=== PATIENT | male | born 1945 | race African-American/Black ===

== ENCOUNTER 2021-12-17 18:15 | Inpatient (IN) | payer OTHER ==
--- OUTSIDE RECORDS SUMMARY | 2021-12-17 18:21 | XMS REPORT | Continuity of Care Document ---
:1945 Author Organization [facility] Address [facility] Myles Dsouza [address] [place] [id number] Care Team Providers Name Role Phone Amanda ARELLANO Attending Clinician Unavailable RINA SALINAS Admitting Clinician Unavailable Problems This patient has no known problems. Allergies, Adverse Reactions, Alerts This patient has no known allergies or adverse reactions. Medications This patient has no known medications. Procedures This patient has no known procedures. Results Test Description Test Time Test Comments Results Result Comments Source CBC W/PLT COUNT & AUTO DIFFERENTIAL 2016-12-03 09:06:00 Test Item Value Reference Range Interpretation Comme nts WHITE BLOOD CELL COUNT (BEAKER) (test code = 775) 8.0 K/ L 4.0- 10.0 RED BLOOD CELL COUNT (BEAKER) (test code = 761) 4.60 M/ L 4.20-5 .80 HEMOGLOBIN (BEAKER) (test code = 410) 14.6 GM/DL 13.0-16.8 HEMATOCRIT (BEAKER) (test code = 411) 43.4 % 40.0-50.0 MEAN CORPUSCULAR VOLUME (BEAKER) (test code = 753) 94.4 fL 82. 0-98.0 MEAN CORPUSCULAR HEMOGLOBIN (BEAKER) (test code = 751) 31.8 pg 27.0-33.0 MEAN CORPUSCULAR HEMOGLOBIN CONC (BEAKER) (test code = 752) 33.7 GM/DL 32.0-36.0 RED CELL DISTRIBUTION WIDTH (BEAKER) (test code = 412) 14.3 % 10.3-14.2 H PLATELET COUNT (BEAKER) (test code = 756) 243 K/CU MM 150-430 MEAN PLATELET VOLUME (BEAKER) (test code = 754) 7.0 fL 6.5-10 .5 NUCLEATED RED BLOOD CELLS (BEAKER) (test code = 413) 0 /100 WBC 0 -0 NEUTROPHILS RELATIVE PERCENT (BEAKER) (test code = 429) 52 % LYMPHOCYTES RELATIVE PERCENT (BEAKER) (test code = 430) 33 % MONOCYTES RELATIVE PERCENT (BEAKER) (test code = 431) 10 % EOSINOPHILS RELATIVE PERCENT (BEAKER) (test code = 432) 4 % BASOPHILS RELATIVE PERCENT (BEAKER) (test code = 437) 1 % NEUTROPHILS ABSOLUTE COUNT (BEAKER) (test code = 670) 4.19 K/ L 1.80-8.00 LYMPHOCYTES ABSOLUTE COUNT (BEAKER) (test code = 414) 2.68 K/ L 1.48-4.50 MONOCYTES ABSOLUTE COUNT (BEAKER) (test code = 415) 0.78 K/ L 0. 00-1.30 EOSINOPHILS ABSOLUTE COUNT (BEAKER) (test code = 416) 0.31 K/ L 0.00-0.50 BASOPHILS ABSOLUTE COUNT (BEAKER) (test code = 417) 0.07 K/ L 0. 00-0.20 0.001.100.000.000.000.000.000.000.000.000.000.000.000.00BASIC METABOLIC PANEL 2016-12-03 06:24:00 Test Item Value Reference Range Interpretation Comments SODIUM (BEAKER) 138 meq/L 136-145 (test code = 381) POTASSIUM (BEAKER) 4.1 meq/L 3.5-5.1 (test code = 379) CHLORIDE (BEAKER) 109 meq/L 98-107 H (test code = 382) CO2 (BEAKER) (test 21 meq/L 22-29 L code = 355) BLOOD UREA NITROGEN 17 mg/dL 7-21 (BEAKER) (test code = 354) CREATININE (BEAKER) 1.25 mg/dL 0.57-1.25 (test code = 358) GLUCOSE RANDOM 77 mg/dL 70-105 (BEAKER) (test code = 652) CALCIUM (BEAKER) 8.6 mg/dL 8.4-10.2 (test code = 697) EGFR (BEAKER) (test 69 mL/min/1.73 ESTIMA HELENE GFR IS code = 1092) sq m NOT ACCURATE CREATININE CLEARANCE IN PREDICTING GLOMERULAR FILTRATION RATE . ESTIMATED GFR I S NOT APPLICABLE FOR DIALYSIS PATIEN TS. CBC W/PLT COUNT & AUTO [id number] 06:48:00 Test Item Value Reference Range Interpretation Comments WHITE BLOOD CELL COUNT (BEAKER) 10.0 K/ L 4.0-10.0 (test code = 775) RED BLOOD CELL COUNT (BEAKER) 4.93 M/ L 4.20-5.80 (test code = 761) HEMOGLOBIN (BEAKER) (test code = 15.5 GM/DL 13.0-16.8 410) HEMATOCRIT (BEAKER) (test code = 45.5 % 40.0-50.0 411) MEAN CORPUSCULAR VOLUME (BEAKER) 92.2 fL 82.0-98.0 (test code = 753) MEAN CORPUSCULAR HEMOGLOBIN 31.5 pg 27.0-33.0 (BEAKER) (test code = 751) MEAN CORPUSCULAR HEMOGLOBIN CONC 34.2 GM/DL 32.0-36.0 (BEAKER) (test code = 752) RED CELL DISTRIBUTION WIDTH 12.5 % 10.3-14.2 (BEAKER) (test code = 412) PLATELET COUNT (BEAKER) (test 239 K/CU MM 150-430 code = 756) MEAN PLATELET VOLUME (BEAKER) 7.2 fL 6.5-10.5 (test code = 754) NUCLEATED RED BLOOD CELLS 0 /100 WBC 0-0 (BEAKER) (test code = 413) NEUTROPHILS RELATIVE PERCENT 61 % (BEAKER) (test code = 429) LYMPHOCYTES RELATIVE PERCENT 25 % (BEAKER) (test code = 430) MONOCYTES RELATIVE PERCENT 10 % (BEAKER) (test code = 431) EOSINOPHILS RELATIVE PERCENT 3 % (BEAKER) (test code = 432) BASOPHILS RELATIVE PERCENT 1 % (BEAKER) (test code = 437) NEUTROPHILS ABSOLUTE COUNT 6.06 K/ L 1.80-8.00 (BEAKER) (test code = 670) LYMPHOCYTES ABSOLUTE COUNT 2.49 K/ L 1.48-4.50 (BEAKER) (test code = 414) MONOCYTES ABSOLUTE COUNT (BEAKER) 1.00 K/ L 0.00-1.30 (test code = 415) EOSINOPHILS ABSOLUTE COUNT 0.33 K/ L 0.00-0.50 (BEAKER) (test code = 416) BASOPHILS ABSOLUTE COUNT (BEAKER) 0.09 K/ L 0.00-0.20 (test code = 417) 0.00BASIC METABOLIC [id number] 06:15:00 Test Item Value Reference Range Interpretation Comments SODIUM (BEAKER) 140 meq/L 136-145 (test code = 381) POTASSIUM (BEAKER) 4.3 meq/L 3.5-5.1 (test code = 379) CHLORIDE (BEAKER) 109 meq/L 98-107 H (test code = 382) CO2 (BEAKER) (test 21 meq/L 22-29 L code = 355) BLOOD UREA NITROGEN 23 mg/dL 7-21 H (BEAKER) (test code = 354) CREATININE (BEAKER) 1.50 mg/dL 0.57-1.25 H (test code = 358) GLUCOSE RANDOM 94 mg/dL 70-105 (BEAKER) (test code = 652) CALCIUM (BEAKER) 9.0 mg/dL 8.4-10.2 (test code = 697) EGFR (BEAKER) (test 56 mL/min/1.73 ESTIMA HELENE GFR IS code = 1092) sq m NOT ACCURATE CREATININE CLEARANCE IN PREDICTING GLOMERULAR FILTRATION RATE . ESTIMATED GFR I S NOT APPLICABLE FOR DIALYSIS PATIEN TS. CBC W/PLT COUNT & AUTO [id number] 08:51:00 Test Item Value Reference Range Interpretation Comments WHITE BLOOD CELL COUNT (BEAKER) 9.5 K/ L 4.0-10.0 (test code = 775) RED BLOOD CELL COUNT (BEAKER) 4.90 M/ L 4.20-5.80 (test code = 761) HEMOGLOBIN (BEAKER) (test code = 16.4 GM/DL 13.0-16.8 410) HEMATOCRIT (BEAKER) (test code = 45.2 % 40.0-50.0 411) MEAN CORPUSCULAR VOLUME (BEAKER) 92.2 fL 82.0-98.0 (test code = 753) MEAN CORPUSCULAR HEMOGLOBIN 33.5 pg 27.0-33.0 H (BEAKER) (test code = 751) MEAN CORPUSCULAR HEMOGLOBIN CONC 36.4 GM/DL 32.0-36.0 H (BEAKER) (test code = 752) RED CELL DISTRIBUTION WIDTH 12.6 % 10.3-14.2 (BEAKER) (test code = 412) PLATELET COUNT (BEAKER) (test 216 K/CU MM 150-430 code = 756) MEAN PLATELET VOLUME (BEAKER) 7.1 fL 6.5-10.5 (test code = 754) NUCLEATED RED BLOOD CELLS 0 /100 WBC 0-0 (BEAKER) (test code = 413) NEUTROPHILS RELATIVE PERCENT 57 % (BEAKER) (test code = 429) LYMPHOCYTES RELATIVE PERCENT 28 % (BEAKER) (test code = 430) MONOCYTES RELATIVE PERCENT 11 % (BEAKER) (test code = 431) EOSINOPHILS RELATIVE PERCENT 3 % (BEAKER) (test code = 432) BASOPHILS RELATIVE PERCENT 1 % (BEAKER) (test code = 437) NEUTROPHILS ABSOLUTE COUNT 5.44 K/ L 1.80-8.00 (BEAKER) (test code = 670) LYMPHOCYTES ABSOLUTE COUNT 2.65 K/ L 1.48-4.50 (BEAKER) (test code = 414) MONOCYTES ABSOLUTE COUNT (BEAKER) 1.00 K/ L 0.00-1.30 (test code = 415) EOSINOPHILS ABSOLUTE COUNT 0.30 K/ L 0.00-0.50 (BEAKER) (test code = 416) BASOPHILS ABSOLUTE COUNT (BEAKER) 0.09 K/ L 0.00-0.20 (test code = 417) 0.00BASIC METABOLIC [id number] 06:46:00 Test Item Value Reference Range Interpretation Comments SODIUM (BEAKER) 138 meq/L 136-145 (test code = 381) POTASSIUM (BEAKER) 4.0 meq/L 3.5-5.1 (test code = 379) CHLORIDE (BEAKER) 106 meq/L 98-107 (test code = 382) CO2 (BEAKER) (test 22 meq/L 22-29 code = 355) BLOOD UREA NITROGEN 19 mg/dL 7-21 (BEAKER) (test code = 354) CREATININE (BEAKER) 1.47 mg/dL 0.57-1.25 H (test code = 358) GLUCOSE RANDOM 90 mg/dL 70-105 (BEAKER) (test code = 652) CALCIUM (BEAKER) 8.8 mg/dL 8.4-10.2 (test code = 697) EGFR (BEAKER) (test 57 mL/min/1.73 ESTIMA HELENE GFR IS code = 1092) sq m NOT ACCURATE CREATININE CLEARANCE IN PREDICTING GLOMERULAR FILTRATION RATE . ESTIMATED GFR I S NOT APPLICABLE FOR DIALYSIS PATIEN TS. CBC W/PLT COUNT & AUTO [id number] 12:42:00 Test Item Value Reference Range Interpretation Comments WHITE BLOOD CELL COUNT (BEAKER) 9.4 K/ L 4.0-10.0 (test code = 775) RED BLOOD CELL COUNT (BEAKER) 4.90 M/ L 4.20-5.80 (test code = 761) HEMOGLOBIN (BEAKER) (test code = 15.8 GM/DL 13.0-16.8 410) HEMATOCRIT (BEAKER) (test code = 45.3 % 40.0-50.0 411) MEAN CORPUSCULAR VOLUME (BEAKER) 92.4 fL 82.0-98.0 (test code = 753) MEAN CORPUSCULAR HEMOGLOBIN 32.3 pg 27.0-33.0 (BEAKER) (test code = 751) MEAN CORPUSCULAR HEMOGLOBIN CONC 34.9 GM/DL 32.0-36.0 (BEAKER) (test code = 752) RED CELL DISTRIBUTION WIDTH 12.7 % 10.3-14.2 (BEAKER) (test code = 412) PLATELET COUNT (BEAKER) (test 220 K/CU MM 150-430 code = 756) MEAN PLATELET VOLUME (BEAKER) 7.1 fL 6.5-10.5 (test code = 754) NUCLEATED RED BLOOD CELLS 2 /100 WBC 0-0 H (BEAKER) (test code = 413) NEUTROPHILS RELATIVE PERCENT 61 % (BEAKER) (test code = 429) LYMPHOCYTES RELATIVE PERCENT 27 % (BEAKER) (test code = 430) MONOCYTES RELATIVE PERCENT 9 % (BEAKER) (test code = 431) EOSINOPHILS RELATIVE PERCENT 2 % (BEAKER) (test code = 432) BASOPHILS RELATIVE PERCENT 1 % (BEAKER) (test code = 437) NEUTROPHILS ABSOLUTE COUNT 5.75 K/ L 1.80-8.00 (BEAKER) (test code = 670) LYMPHOCYTES ABSOLUTE COUNT 2.51 K/ L 1.48-4.50 (BEAKER) (test code = 414) MONOCYTES ABSOLUTE COUNT (BEAKER) 0.81 K/ L 0.00-1.30 (test code = 415) EOSINOPHILS ABSOLUTE COUNT 0.22 K/ L 0.00-0.50 (BEAKER) (test code = 416) BASOPHILS ABSOLUTE COUNT (BEAKER) 0.09 K/ L 0.00-0.20 (test code = 417) 0.00(MANUAL DIFFERENTIAL)[id number] 12:42:00 Test Item Value Reference Range Interpretation Comments TOTAL COUNTED (BEAKER) (test code = 1351) BASIC METABOLIC [id number] 05:31:00 Test Item Value Reference Range Interpretation Comments SODIUM (BEAKER) 138 meq/L 136-145 (test code = 381) POTASSIUM (BEAKER) 4.3 meq/L 3.5-5.1 (test code = 379) CHLORIDE (BEAKER) 108 meq/L 98-107 H (test code = 382) CO2 (BEAKER) (test 22 meq/L 22-29 code = 355) BLOOD UREA NITROGEN 15 mg/dL 7-21 (BEAKER) (test code = 354) CREATININE (BEAKER) 1.31 mg/dL 0.57-1.25 H (test code = 358) GLUCOSE RANDOM 85 mg/dL 70-105 (BEAKER) (test code = 652) CALCIUM (BEAKER) 9.0 mg/dL 8.4-10.2 (test code = 697) EGFR (BEAKER) (test 65 mL/min/1.73 ESTIMA HELENE GFR IS code = 1092) sq m NOT ACCURATE CREATININE CLEARANCE IN PREDICTING GLOMERULAR FILTRATION RATE . ESTIMATED GFR I S NOT APPLICABLE FOR DIALYSIS PATIEN TS. BASIC METABOLIC [id number] 04:28:00 Test Item Value Reference Range Interpretation Comments SODIUM (BEAKER) 137 meq/L 136-145 (test code = 381) POTASSIUM (BEAKER) 5.4 meq/L 3.5-5.1 H Specimen markedly (test code = 379) hemolyzed CHLORIDE (BEAKER) 109 meq/L 98-107 H (test code = 382) CO2 (BEAKER) (test 19 meq/L 22-29 L code = 355) BLOOD UREA NITROGEN 17 mg/dL 7-21 (BEAKER) (test code = 354) CREATININE (BEAKER) 1.33 mg/dL 0.57-1.25 H Specimen markedly (test code = 358) hemolyzed GLUCOSE RANDOM 88 mg/dL 70-105 (BEAKER) (test code = 652) CALCIUM (BEAKER) 8.8 mg/dL 8.4-10.2 (test code = 697) EGFR (BEAKER) (test 64 mL/min/1.73 ESTIMA HELENE GFR IS code = 1092) sq m NOT ACCURATE CREATININE CLEARANCE IN PREDICTING GLOMERULAR FILTRATION RATE . ESTIMATED GFR I S NOT APPLICABLE FOR DIALYSIS PATIEN TS. CBC W/PLT COUNT & AUTO [id number] 04:10:00 Test Item Value Reference Range Interpretation Comments WHITE BLOOD CELL COUNT (BEAKER) 10.4 K/ L 4.0-10.0 H (test code = 775) RED BLOOD CELL COUNT (BEAKER) 4.84 M/ L 4.20-5.80 (test code = 761) HEMOGLOBIN (BEAKER) (test code = 16.2 GM/DL 13.0-16.8 410) HEMATOCRIT (BEAKER) (test code = 44.7 % 40.0-50.0 411) MEAN CORPUSCULAR VOLUME (BEAKER) 92.5 fL 82.0-98.0 (test code = 753) MEAN CORPUSCULAR HEMOGLOBIN 33.5 pg 27.0-33.0 H (BEAKER) (test code = 751) MEAN CORPUSCULAR HEMOGLOBIN CONC 36.2 GM/DL 32.0-36.0 H (BEAKER) (test code = 752) RED CELL DISTRIBUTION WIDTH 12.8 % 10.3-14.2 (BEAKER) (test code = 412) PLATELET COUNT (BEAKER) (test 208 K/CU MM 150-430 code = 756) MEAN PLATELET VOLUME (BEAKER) 7.2 fL 6.5-10.5 (test code = 754) NUCLEATED RED BLOOD CELLS 0 /100 WBC 0-0 (BEAKER) (test code = 413) NEUTROPHILS RELATIVE PERCENT 64 % (BEAKER) (test code = 429) LYMPHOCYTES RELATIVE PERCENT 24 % (BEAKER) (test code = 430) MONOCYTES RELATIVE PERCENT 8 % (BEAKER) (test code = 431) EOSINOPHILS RELATIVE PERCENT 3 % (BEAKER) (test code = 432) BASOPHILS RELATIVE PERCENT 1 % (BEAKER) (test code = 437) NEUTROPHILS ABSOLUTE COUNT 6.70 K/ L 1.80-8.00 (BEAKER) (test code = 670) LYMPHOCYTES ABSOLUTE COUNT 2.52 K/ L 1.48-4.50 (BEAKER) (test code = 414) MONOCYTES ABSOLUTE COUNT (BEAKER) 0.87 K/ L 0.00-1.30 (test code = 415) EOSINOPHILS ABSOLUTE COUNT 0.27 K/ L 0.00-0.50 (BEAKER) (test code = 416) BASOPHILS ABSOLUTE COUNT (BEAKER) 0.07 K/ L 0.00-0.20 (test code = 417) 0.00BASIC METABOLIC [id number] 04:18:00 Test Item Value Reference Range Interpretation Comments SODIUM (BEAKER) 139 meq/L 136-145 (test code = 381) POTASSIUM (BEAKER) 3.4 meq/L 3.5-5.1 L (test code = 379) CHLORIDE (BEAKER) 112 meq/L 98-107 H (test code = 382) CO2 (BEAKER) (test 19 meq/L 22-29 L code = 355) BLOOD UREA NITROGEN 12 mg/dL 7-21 (BEAKER) (test code = 354) CREATININE (BEAKER) 0.99 mg/dL 0.57-1.25 (test code = 358) GLUCOSE RANDOM 79 mg/dL 70-105 (BEAKER) (test code = 652) CALCIUM (BEAKER) 7.6 mg/dL 8.4-10.2 L (test code = 697) EGFR (BEAKER) (test 90 mL/min/1.73 ESTIMA HELENE GFR IS code = 1092) sq m NOT ACCURATE CREATININE CLEARANCE IN PREDICTING GLOMERULAR FILTRATION RATE . ESTIMATED GFR I S NOT APPLICABLE FOR DIALYSIS PATIEN TS. CBC W/PLT COUNT & AUTO [id number] 04:08:00 Test Item Value Reference Range Interpretation Comments WHITE BLOOD CELL COUNT (BEAKER) 9.0 K/ L 4.0-10.0 (test code = 775) RED BLOOD CELL COUNT (BEAKER) 4.54 M/ L 4.20-5.80 (test code = 761) HEMOGLOBIN (BEAKER) (test code = 14.6 GM/DL 13.0-16.8 410) HEMATOCRIT (BEAKER) (test code = 42.1 % 40.0-50.0 411) MEAN CORPUSCULAR VOLUME (BEAKER) 92.7 fL 82.0-98.0 (test code = 753) MEAN CORPUSCULAR HEMOGLOBIN 32.1 pg 27.0-33.0 (BEAKER) (test code = 751) MEAN CORPUSCULAR HEMOGLOBIN CONC 34.7 GM/DL 32.0-36.0 (BEAKER) (test code = 752) RED CELL DISTRIBUTION WIDTH 14.3 % 10.3-14.2 H (BEAKER) (test code = 412) PLATELET COUNT (BEAKER) (test 213 K/CU MM 150-430 code = 756) MEAN PLATELET VOLUME (BEAKER) 7.0 fL 6.5-10.5 (test code = 754) NUCLEATED RED BLOOD CELLS 0 /100 WBC 0-0 (BEAKER) (test code = 413) NEUTROPHILS RELATIVE PERCENT 66 % (BEAKER) (test code = 429) LYMPHOCYTES RELATIVE PERCENT 21 % (BEAKER) (test code = 430) MONOCYTES RELATIVE PERCENT 10 % (BEAKER) (test code = 431) EOSINOPHILS RELATIVE PERCENT 3 % (BEAKER) (test code = 432) BASOPHILS RELATIVE PERCENT 1 % (BEAKER) (test code = 437) NEUTROPHILS ABSOLUTE COUNT 5.89 K/ L 1.80-8.00 (BEAKER) (test code = 670) LYMPHOCYTES ABSOLUTE COUNT 1.87 K/ L 1.48-4.50 (BEAKER) (test code = 414) MONOCYTES ABSOLUTE COUNT (BEAKER) 0.87 K/ L 0.00-1.30 (test code = 415) EOSINOPHILS ABSOLUTE COUNT 0.27 K/ L 0.00-0.50 (BEAKER) (test code = 416) BASOPHILS ABSOLUTE COUNT (BEAKER) 0.08 K/ L 0.00-0.20 (test code = 417) 0.00CBC W/PLT COUNT & AUTO [id number] 06:11:00 Test Item Value Reference Range Interpretation Comments WHITE BLOOD CELL COUNT (BEAKER) 11.3 K/ L 4.0-10.0 H (test code = 775) RED BLOOD CELL COUNT (BEAKER) 5.04 M/ L 4.20-5.80 (test code = 761) HEMOGLOBIN (BEAKER) (test code = 16.2 GM/DL 13.0-16.8 410) HEMATOCRIT (BEAKER) (test code = 46.7 % 40.0-50.0 411) MEAN CORPUSCULAR VOLUME (BEAKER) 92.7 fL 82.0-98.0 (test code = 753) MEAN CORPUSCULAR HEMOGLOBIN 32.2 pg 27.0-33.0 (BEAKER) (test code = 751) MEAN CORPUSCULAR HEMOGLOBIN CONC 34.8 GM/DL 32.0-36.0 (BEAKER) (test code = 752) RED CELL DISTRIBUTION WIDTH 12.9 % 10.3-14.2 (BEAKER) (test code = 412) PLATELET COUNT (BEAKER) (test 216 K/CU MM 150-430 code = 756) MEAN PLATELET VOLUME (BEAKER) 7.4 fL 6.5-10.5 (test code = 754) NUCLEATED RED BLOOD CELLS 0 /100 WBC 0-0 (BEAKER) (test code = 413) NEUTROPHILS RELATIVE PERCENT 63 % (BEAKER) (test code = 429) LYMPHOCYTES RELATIVE PERCENT 24 % (BEAKER) (test code = 430) MONOCYTES RELATIVE PERCENT 10 % (BEAKER) (test code = 431) EOSINOPHILS RELATIVE PERCENT 2 % (BEAKER) (test code = 432) BASOPHILS RELATIVE PERCENT 1 % (BEAKER) (test code = 437) NEUTROPHILS ABSOLUTE COUNT 7.09 K/ L 1.80-8.00 (BEAKER) (test code = 670) LYMPHOCYTES ABSOLUTE COUNT 2.69 K/ L 1.48-4.50 (BEAKER) (test code = 414) MONOCYTES ABSOLUTE COUNT (BEAKER) 1.14 K/ L 0.00-1.30 (test code = 415) EOSINOPHILS ABSOLUTE COUNT 0.24 K/ L 0.00-0.50 (BEAKER) (test code = 416) BASOPHILS ABSOLUTE COUNT (BEAKER) 0.10 K/ L 0.00-0.20 (test code = 417) 0.00[facility] MET[facility]OL[facility] [id number] 06:07:00 Test Item Value Reference Range Interpretation Comments SODIUM (BEAKER) 138 meq/L 136-145 (test code = 381) POTASSIUM (BEAKER) 4.6 meq/L 3.5-5.1 Specimen slightly (test code = 379) hemolyzed CHLORIDE (BEAKER) 108 meq/L 98-107 H (test code = 382) CO2 (BEAKER) (test 21 meq/L 22-29 L code = 355) BLOOD UREA NITROGEN 15 mg/dL 7-21 (BEAKER) (test code = 354) CREATININE (BEAKER) 1.14 mg/dL 0.57-1.25 Specimen slightly (test code = 358) hemolyzed GLUCOSE RANDOM 81 mg/dL 70-105 (BEAKER) (test code = 652) CALCIUM (BEAKER) 8.8 mg/dL 8.4-10.2 (test code = 697) EGFR (BEAKER) (test 77 mL/min/1.73 ESTIMA HELENE GFR IS code = 1092) sq m NOT ACCURATE CREATININE CLEARANCE IN PREDICTING GLOMERULAR FILTRATION RATE . ESTIMATED GFR I S NOT APPLICABLE FOR DIALYSIS PATIEN TS. [id number] 10:58:00 Test Item Value Reference Range Interpretation Comments RPR SCREEN (BEAKER) (test code = Nonreactive Nonreactive 420) HEMOGLOBIN [id number] 10:40:00 Test Item Value Reference Range Interpretation Comments HEMOGLOBIN A1C 5.4 % 4.3-6.1 POSSIBLE HEMO GLOBIN C (BEAKER) (test code = VARIAN T NOTED IN 368) HEMOGLOBIN A1C CHROMATOGRAPH. SUGGEST HEMOGLOBIN ELEC TROPHORESIS IF CLINICALLY I NDICATED. CBC W/PLT COUNT & AUTO [id number] 07:52:00 Test Item Value Reference Range Interpretation Comments WHITE BLOOD CELL COUNT (BEAKER) 10.8 K/ L 4.0-10.0 H (test code = 775) RED BLOOD CELL COUNT (BEAKER) 4.99 M/ L 4.20-5.80 (test code = 761) HEMOGLOBIN (BEAKER) (test code = 15.4 GM/DL 13.0-16.8 410) HEMATOCRIT (BEAKER) (test code = 46.5 % 40.0-50.0 411) MEAN CORPUSCULAR VOLUME (BEAKER) 93.1 fL 82.0-98.0 (test code = 753) MEAN CORPUSCULAR HEMOGLOBIN 30.8 pg 27.0-33.0 (BEAKER) (test code = 751) MEAN CORPUSCULAR HEMOGLOBIN CONC 33.1 GM/DL 32.0-36.0 (BEAKER) (test code = 752) RED CELL DISTRIBUTION WIDTH 14.5 % 10.3-14.2 H (BEAKER) (test code = 412) PLATELET COUNT (BEAKER) (test 248 K/CU MM 150-430 code = 756) MEAN PLATELET VOLUME (BEAKER) 7.2 fL 6.5-10.5 (test code = 754) NUCLEATED RED BLOOD CELLS 0 /100 WBC 0-0 (BEAKER) (test code = 413) NEUTROPHILS RELATIVE PERCENT 68 % (BEAKER) (test code = 429) LYMPHOCYTES RELATIVE PERCENT 22 % (BEAKER) (test code = 430) MONOCYTES RELATIVE PERCENT 9 % (BEAKER) (test code = 431) EOSINOPHILS RELATIVE PERCENT 1 % (BEAKER) (test code = 432) BASOPHILS RELATIVE PERCENT 0 % (BEAKER) (test code = 437) NEUTROPHILS ABSOLUTE COUNT 7.29 K/ L 1.80-8.00 (BEAKER) (test code = 670) LYMPHOCYTES ABSOLUTE COUNT 2.36 K/ L 1.48-4.50 (BEAKER) (test code = 414) MONOCYTES ABSOLUTE COUNT (BEAKER) 0.99 K/ L 0.00-1.30 (test code = 415) EOSINOPHILS ABSOLUTE COUNT 0.10 K/ L 0.00-0.50 (BEAKER) (test code = 416) BASOPHILS ABSOLUTE COUNT (BEAKER) 0.04 K/ L 0.00-0.20 (test code = 417) 0.00URINALYSIS W/ [id number] 07:26:00 Test Item Value Reference Range Interpretation Comments COLOR (BEAKER) (test code Light Yellow = 470) CLARITY (BEAKER) (test Clear code = 469) SPECIFIC GRAVITY UA 1.031 1.001-1.035 (BEAKER) (test code = 468) PH UA (BEAKER) (test code 7.0 5.0-8.0 = 467) PROTEIN UA (BEAKER) (test 10 mg/dL Negative A code = 464) GLUCOSE UA (BEAKER) (test Negative Negative code = 365) KETONES UA (BEAKER) (test Negative Negative code = 371) BILIRUBIN UA (BEAKER) Negative Negative (test code = 462) BLOOD UA (BEAKER) (test Negative Negative code = 461) NITRITE UA (BEAKER) (test Negative Negative code = 465) LEUKOCYTE ESTERASE UA Negative Negative (BEAKER) (test code = 466) UROBILINOGEN UA (BEAKER) 0.2 mg/dL 0.2-1.0 (test code = 463) RBC UA (BEAKER) (test code < /HPF = 519) WBC UA (BEAKER) (test code 1 /HPF = 520) SOURCE(BEAKER) (test code Urine, Clean Catch = 1789) TSH/FREE T4 IF [id number] 06:28:00 Test Item Value Reference Range Interpretation Comments THYROID STIMULATING HORMONE 0.92 uIU/mL 0.35-4.94 (BEAKER) (test code = 772) VITAMIN B12 AND [id number] 06:28:00 Test Item Value Reference Range Interpretation Comments VITAMIN B12 (BEAKER) (test code = 424 pg/mL 213-816 774) FOLATE (BEAKER) (test code = 362) 6.3 ng/mL >=7.0 L Effective 07/09/2014: Folate Reference Range ChangeNew: >=7.0 Previous: >=5.4BASIC METABOLIC [id number] 05:44:00 Test Item Value Reference Range Interpretation Comments SODIUM (BEAKER) 137 meq/L 136-145 (test code = 381) POTASSIUM (BEAKER) 4.2 meq/L 3.5-5.1 (test code = 379) CHLORIDE (BEAKER) 107 meq/L 98-107 (test code = 382) CO2 (BEAKER) (test 21 meq/L 22-29 L code = 355) BLOOD UREA NITROGEN 15 mg/dL 7-21 (BEAKER) (test code = 354) CREATININE (BEAKER) 1.11 mg/dL 0.57-1.25 (test code = 358) GLUCOSE RANDOM 94 mg/dL 70-105 (BEAKER) (test code = 652) CALCIUM (BEAKER) 8.9 mg/dL 8.4-10.2 (test code = 697) EGFR (BEAKER) (test mL/min/1.73 INSUFFIC IENT CLINICAL code = 1092) sq m DATA TO CALCULA TE ESTIMATED GFR. FastingLIPID [id number] 05:39:00 Test Item Value Reference Range Interpretation Comments TRIGLYCERIDES (BEAKER) (test code = 71 mg/dL 540) CHOLESTEROL (BEAKER) (test code = 207 mg/dL 631) HDL CHOLESTEROL (BEAKER) (test code 33 mg/dL = 976) LDL CHOLESTEROL CALCULATED (BEAKER) 160 mg/dL (test code = 633) Triglyceride Reference Range: Low Risk <150 Borderline 150-199 High Risk 200-499 Very High Risk >=500Cholesterol Reference Range: Low Risk <200 Borderline 200-239 High Risk >240HDL Cholesterol Reference Range: Low Risk >=60 High Risk <40LDL Cholesterol Reference Range: Optimal <100 Near Optimal 100-129 Borderline 130-159 High 160-189 Very High >=190 FastingTROPONIN [id number] 05:25:00 Test Item Value Reference Range Interpretation Comments TROPONIN I (BEAKER) (test code = 0.01 ng/mL 0.00-0.03 397) Effective 07/09/2014: Reference Range ChangeNew: 0.00-0.03 Previous 0.00- 0.15Troponin I (TnI) levels must be interpreted in the context of the presenting symptoms and the clinical findings. Elevated TnI levels indicate myocardial damage, but are not specific for ischemic heart disease. Elevated TnI levels are seen in patients with other cardiac conditions (including myocarditis and congestive heartfailure), and slight TnI elevations occur in patients with other conditions, including sepsis, renalfailure, acidosis, acute neurological disease, and persistent tachyarrhythmia.FastingCBC W/PLT COUNT & AUTO [id number] 04:49:00 Test Item Value Reference Range Interpretation Comments WHITE BLOOD CELL COUNT (BEAKER) 10.4 K/ L 4.0-10.0 H (test code = 775) RED BLOOD CELL COUNT (BEAKER) 4.94 M/ L 4.20-5.80 (test code = 761) HEMOGLOBIN (BEAKER) (test code = 16.2 GM/DL 13.0-16.8 410) HEMATOCRIT (BEAKER) (test code = 45.5 % 40.0-50.0 411) MEAN CORPUSCULAR VOLUME (BEAKER) 92.0 fL 82.0-98.0 (test code = 753) MEAN CORPUSCULAR HEMOGLOBIN 32.7 pg 27.0-33.0 (BEAKER) (test code = 751) MEAN CORPUSCULAR HEMOGLOBIN CONC 35.5 GM/DL 32.0-36.0 (BEAKER) (test code = 752) RED CELL DISTRIBUTION WIDTH 12.9 % 10.3-14.2 (BEAKER) (test code = 412) PLATELET COUNT (BEAKER) (test 214 K/CU MM 150-430 code = 756) MEAN PLATELET VOLUME (BEAKER) 6.6 fL 6.5-10.5 (test code = 754) NUCLEATED RED BLOOD CELLS 0 /100 WBC 0-0 (BEAKER) (test code = 413) NEUTROPHILS RELATIVE PERCENT 67 % (BEAKER) (test code = 429) LYMPHOCYTES RELATIVE PERCENT 23 % (BEAKER) (test code = 430) MONOCYTES RELATIVE PERCENT 9 % (BEAKER) (test code = 431) EOSINOPHILS RELATIVE PERCENT 1 % (BEAKER) (test code = 432) BASOPHILS RELATIVE PERCENT 0 % (BEAKER) (test code = 437) NEUTROPHILS ABSOLUTE COUNT 6.97 K/ L 1.80-8.00 (BEAKER) (test code = 670) LYMPHOCYTES ABSOLUTE COUNT 2.37 K/ L 1.48-4.50 (BEAKER) (test code = 414) MONOCYTES ABSOLUTE COUNT (BEAKER) 0.97 K/ L 0.00-1.30 (test code = 415) EOSINOPHILS ABSOLUTE COUNT 0.08 K/ L 0.00-0.50 (BEAKER) (test code = 416) BASOPHILS ABSOLUTE COUNT (BEAKER) 0.02 K/ L 0.00-0.20 (test code = 417) [id number] 00:59:00 Test Item Value Reference Range Interpretation Comments PHOSPHORUS (BEAKER) (test code = 3.1 mg/dL 2.3-4.7 604) [id number] 00:59:00 Test Item Value Reference Range Interpretation Comments MAGNESIUM (BEAKER) (test code = 2.0 mg/dL 1.6-2.6 627) CREATINE KINASE (CK), TOTAL AND [id number] 22:25:00 Test Item Value Reference Range Interpretation Comments CREATINE KINASE TOTAL (BEAKER) 186 U/L 29-200 (test code = 380) CREATINE KINASE-MB (BEAKER) (test 1.9 ng/mL 0.0-6.6 code = 750) CREATINE KINASE-MB INDEX (BEAKER) 1.0 % (test code = 395) Effective 07/09/2014: CK-MB Reference Range ChangeNew: 0.0-6.6 Previous: 0.0-4.9CK-MB Reference Range:<6.7 Normal6.7-10.0 Borderline>10.0 AbnormalTROPONIN [id number] 22:25:00 Test Item Value Reference Range Interpretation Comments TROPONIN I (BEAKER) (test code = 397) < ng/mL 0.00-0.03 Effective 07/09/2014: Reference Range ChangeNew: 0.00-0.03 Previous 0.00- 0.15Troponin I (TnI) levels must be interpreted in the context of the presenting symptoms and the clinical findings. Elevated TnI levels indicate myocardial damage, but are not specific for ischemic heart disease. Elevated TnI levels are seen in patients with other cardiac conditions (including myocarditis and congestive heartfailure), and slight TnI elevations occur in patients with other conditions, including sepsis, renalfailure, acidosis, acute neurological disease, and persistent tachyarrhythmia.B-TYPE NATRIURETIC FACTOR (BNP) 2016-11-25 22:20:00 Test Item Value Reference Range Interpretation Comments B-TYPE NATRIURETIC PEPTIDE (BEAKER) 16 pg/mL 0-100 (test code = 700) BASIC METABOLIC [id number] 22:19:00 Test Item Value Reference Range Interpretation Comments SODIUM (BEAKER) 139 meq/L 136-145 (test code = 381) POTASSIUM (BEAKER) 4.2 meq/L 3.5-5.1 (test code = 379) CHLORIDE (BEAKER) 105 meq/L 98-107 (test code = 382) CO2 (BEAKER) (test 23 meq/L 22-29 code = 355) BLOOD UREA NITROGEN 17 mg/dL 7-21 (BEAKER) (test code = 354) CREATININE (BEAKER) 1.40 mg/dL 0.57-1.25 H (test code = 358) GLUCOSE RANDOM 103 mg/dL 70-105 (BEAKER) (test code = 652) CALCIUM (BEAKER) 9.4 mg/dL 8.4-10.2 (test code = 697) EGFR (BEAKER) (test mL/min/1.73 INSUFFIC IENT CLINICAL code = 1092) sq m DATA TO CALCULA TE ESTIMATED GFR. POCT-GLUCOSE [id number] 22:17:00 Test Item Value Reference Range Interpretation Comments POC-GLUCOSE METER 103 mg/dL 70-110 TESTED AT [facility] [address] ([facility]) (test code = [place] 1538) [address] CBC W/PLT COUNT & AUTO [id number] 22:12:00 Test Item Value Reference Range Interpretation Comments WHITE BLOOD CELL COUNT (BEAKER) 13.9 K/ L 4.0-10.0 H (test code = 775) RED BLOOD CELL COUNT (BEAKER) 5.08 M/ L 4.20-5.80 (test code = 761) HEMOGLOBIN (BEAKER) (test code = 16.6 GM/DL 13.0-16.8 410) HEMATOCRIT (BEAKER) (test code = 46.9 % 40.0-50.0 411) MEAN CORPUSCULAR VOLUME (BEAKER) 92.4 fL 82.0-98.0 (test code = 753) MEAN CORPUSCULAR HEMOGLOBIN 32.6 pg 27.0-33.0 (BEAKER) (test code = 751) MEAN CORPUSCULAR HEMOGLOBIN CONC 35.3 GM/DL 32.0-36.0 (BEAKER) (test code = 752) RED CELL DISTRIBUTION WIDTH 12.9 % 10.3-14.2 (BEAKER) (test code = 412) PLATELET COUNT (BEAKER) (test 242 K/CU MM 150-430 code = 756) MEAN PLATELET VOLUME (BEAKER) 6.7 fL 6.5-10.5 (test code = 754) NUCLEATED RED BLOOD CELLS 0 /100 WBC 0-0 (BEAKER) (test code = 413) NEUTROPHILS RELATIVE PERCENT 82 % (BEAKER) (test code = 429) LYMPHOCYTES RELATIVE PERCENT 11 % (BEAKER) (test code = 430) MONOCYTES RELATIVE PERCENT 6 % (BEAKER) (test code = 431) EOSINOPHILS RELATIVE PERCENT 0 % (BEAKER) (test code = 432) BASOPHILS RELATIVE PERCENT 0 % (BEAKER) (test code = 437) NEUTROPHILS ABSOLUTE COUNT 11.40 K/ L 1.80-8.00 H (BEAKER) (test code = 670) LYMPHOCYTES ABSOLUTE COUNT 1.56 K/ L 1.48-4.50 (BEAKER) (test code = 414) MONOCYTES ABSOLUTE COUNT (BEAKER) 0.84 K/ L 0.00-1.30 (test code = 415) EOSINOPHILS ABSOLUTE COUNT 0.05 K/ L 0.00-0.50 (BEAKER) (test code = 416) BASOPHILS ABSOLUTE COUNT (BEAKER) 0.01 K/ L 0.00-0.20 (test code = 417) 0.00PROTHROMBIN TIME/[id number] 22:07:00 Test Item Value Reference Range Interpretation Comments PROTIME (BEAKER) (test code = 14.0 seconds 11.7-14.7 759) INR (BEAKER) (test code = 370) 1.1 <=5.9 RECOMMENDED COUMADIN/WARFARIN INR THERAPY RANGESSTANDARD DOSE: 2.0 - 3.0 Includes: PROPHYLAXIS forvenous thrombosis, systemic embolization; TREATMENT for venous thrombosis and/or pulmonary embolus.HIGH RISK: Target INR is 2.5-3.5 for patients with mechanical heart valves.
--- NOTE | 2021-12-17 19:13 | RAD REPORT ---
EXAM DESCRIPTION: RAD - Chest Single View - 12/17/2021 7:09 pm CLINICAL HISTORY: cva Chest pain. COMPARISON: Chest Single View dated 01/28/2017; Chest Single View dated 08/18/2016; Chest Pa And Lat ( 2 Views) dated 08/17/2016; CHEST PA AND LAT 2 VIEW dated 03/20/2014 FINDINGS: Portable technique limits examination quality. The lungs are mildly emphysematous but grossly clear. The heart is normal in size. No displaced fract ures. IMPRESSION: No acute intrathoracic process suspected.
--- NOTE | 2021-12-17 19:13 | RAD REPORT ---
EXAM DESCRIPTION: CT - Head Brain Wo Cont - 12/17/2021 7:07 pm CLINICAL HISTORY: CVA Headache, drowsiness COMPARISON: HEAD BRAIN W O CONTRAST dated 03/20/2014; HEAD BRAIN W O CONTRAST dated 09/09/2005; Head C Spine Mpr Wo Con dated 01/28/2017 TECHNIQUE: All CT scans are performed using dose optimization technique as appropriate and may inclu de automated exposure control or mA/KV adjustment according to patient size. FINDINGS: No intracranial hemorrhage, hydrocephalus or extra-axial fluid collection.Moderate general ized brain atrophy is present with moderate periventricular and deep white matter chronic microvascul ar ischemic changes.Diminished density is noted in the left parietal region suspicious for a subacute CVA. The paranasal sinuses and mastoids are clear. The calvarium is intact. IMPRESSION: Moderate to large nonhemorrhagic subacute CVA suspected left parietal region. The findings were discussed with Dr. Morse in the ER On 12/17/2021 at 6:41 p.m. by telephone.
[2021-12-17 19:14] LABS: Absolute Lymphocytes (CBC) 1.4 K/uL (0.7-4.9); Hematocrit 44.5 % (39.6-49.0); Lymphocytes % 13.7 % (15.3-44.8); MPV 7.2 fL (7.6-11.3); Protime INR 1.04; RBC Red Blood Cell Count 4.98 M/uL (4.33-5.43)
[2021-12-17 19:21] LABS: Magnesium 1.9 mg/dL (1.8-2.4); Potassium 4.2 mmol/L (3.5-5.1); Troponin High Sensitivity 5.2 pg/mL (<58.9)
[2021-12-17] MEDS ORDERED: NA CHLORIDE 0.9% 500 ML ONE (19:39)
--- NOTE | 2021-12-17 19:55 | RAD REPORT ---
EXAM DESCRIPTION: CT - Head angio - 12/17/2021 7:44 pm CLINICAL HISTORY: CVA Headache, drowsiness COMPARISON: Head Brain Wo Cont dated 12/17/2021; HEAD BRAIN W O CONTRAST dated 03/20/2014 TECHNIQUE: CT angiography of the head was performed with MIPs. All CT scans are performed using dose optimization technique as appropriate and may include automated exposure control or mA/KV adjustment according to patient size. FINDINGS: No evidence of aneurysm is detected. Diminished flow is seen in the intracranial left vert ebral artery. The left M1 segment is diminutive in size and irregular likely related to underlying atherosclerotic disease. No large vessel occlusion seen. The visualized dural venous sinuses are patent. IMPRESSION: Diminished and irregular flow in the left M1 segment likely related to atherosclerosis. Diminished flow in the left intracranial vertebral artery likely atherosclerotic in etiology as well.
--- NOTE | 2021-12-17 19:59 | RAD REPORT ---
EXAM DESCRIPTION: CT - Neck Angio - 12/17/2021 7:44 pm CLINICAL HISTORY: CVA Headache, drowsiness COMPARISON: Head C Spine Mpr Wo Con dated 01/28/2017 TECHNIQUE: CT angiography of the neck vessels was performed with MIPs. All CT scans are performed using dose optimization technique as appropriate and may include automated exposure control or mA/KV adjustment according to patient size. FINDINGS: A left aortic arch is identified with normal three vessel configuration of the great vesse ls. No significant flow abnormality is seen of the common carotid bilaterally. Mild narrowing and mild hard plaquing seen proximal left internal carotid artery, resulting in a sten osis estimated at less than 50% based on NASCET criteria. No significant right-sided carotid narrowin g. Normal flow is seen within both vertebral arteries. Emphysematous left upper lung barnhart. IMPRESSION: Mild, less than 50% narrowing, is seen at proximal left internal carotid artery.
--- NOTE | 2021-12-17 20:07 | EDPHYS ---
Physician Documentation [facility] Name: Terry Sauceda Age: 76 yrs Sex: Male : 1945 Arrival Date: 12/17/2021 Time: 18:20 Bed 19 Private MD: ED Physician Lety Rizzo HPI: 12/17 19:13 This 76 yrs old Black Male presents to ER via Wheelchair with complaints of Arm and Leg jr8 weakness. 19:13 The patient's problem is reported as weakness, in the right upper extremity, in the jr8 right lower extremity. Onset: The symptoms/episode began/occurred acutely, today, at 16:30. Duration: The episode is continuous. Context: the episode(s) was witnessed, by family, occurred at home. The symptoms are alleviated by nothing. The symptoms are aggravated by standing. Associated signs and symptoms: Pertinent positives: numbness. Severity of symptoms: At their worst the symptoms were moderate in the emergency department the symptoms are unchanged. The patient has experienced a previous episode. The patient has not recently seen a physician. Patient with history of stroke in past. Currently on no meds. Family stated that he was getting up out of chair and noticed he was favoring left side and could not walk appropriately. Started at 16:30. Came to ED at that time. Stated that the only previous stroke deficit from the past was speech problems. Otherwise has never had problems with weakness . Historical: - PMHx: 18:41 CVA; High Cholesterol; ld1 - Immunization history:: Adult Immunizations up to date. ROS: 18:42 Constitutional: Negative for fever, chills, and weight loss, Cardiovascular: Negative jr8 for chest pain, palpitations, and edema, Respiratory: Negative for shortness of breath, cough, wheezing, and pleuritic chest pain, Abdomen/GI: Negative for abdominal pain, nausea, vomiting, diarrhea, and constipation, Back: Negative for injury and pain, MS/Extremity: Negative for injury and deformity, Skin: Negative for injury, rash, and discoloration. 18:42 Neuro: Positive for numbness, weakness. Exam: 18:42 Eyes: Pupils equal round and reactive to light, extra-ocular motions intact. Lids and jr8 lashes normal. Conjunctiva and sclera are non-icteric and not injected. Cornea within normal limits. Periorbital areas with no swelling, redness, or edema. ENT: Nares patent. No nasal discharge, no septal abnormalities noted. Tympanic membranes are normal and external auditory canals are clear. Oropharynx with no redness, swelling, or masses, exudates, or evidence of obstruction, uvula midline. Mucous membranes moist. Neck: Trachea midline, no thyromegaly or masses palpated, and no cervical lymphadenopathy. Supple, full range of motion without nuchal rigidity, or vertebral point tenderness. No Meningismus. Cardiovascular: Regular rate and rhythm with a normal S1 and S2. No gallops, murmurs, or rubs. Normal PMI, no JVD. No pulse deficits. Respiratory: Lungs have equal breath sounds bilaterally, clear to auscultation and percussion. No rales, rhonchi or wheezes noted. No increased work of breathing, no retractions or nasal flaring. Abdomen/GI: Soft, non-tender, with normal bowel sounds. No distension or tympany. No guarding or rebound. No evidence of tenderness throughout. Skin: Warm, dry with normal turgor. Normal color with no rashes, no lesions, and no evidence of cellulitis. MS/ Extremity: Pulses equal, no cyanosis. Neurovascular intact. Full, normal range of motion. 18:42 Neuro: Orientation: to person, place \\T\\ time. Mentation: is normal, Memory: is normal, Cranial nerves: CN I not tested, CN II- XII are normal as tested, extraocular movements are intact, Facial palsy and sensory deficits are absent. Nystagmus is absent. Speech is slurred, Tongue strength is normal, Motor: moves all fours, Sensation: numbness, that is mild, seizure activity, is not displayed by the patient, Abnormal movements: there are no abnormal movements. 20:05 Radiologist reports: Subacute left parietal infarct present jr8 Vital Signs: 18:40 BP 128 / 74; Pulse 69; Resp 18; Temp 97.6(TE); Pulse Ox 98% on R/A; Pain 0/10; ld1 20:00 BP 118 / 78; Pulse 64; Resp 24; Pulse Ox 100% on R/A; vc1 12/18 00:19 BP 112 / 68; Pulse 50; Resp 16; Pulse Ox 100% on R/A; Pain 0/10; ton NIH Stroke Scale Scores: 12/17 18:42 NIHSS Score: 8 jr8 19:10 NIHSS Score: 9 ap3 MDM: 18:31 Patient medically screened. [facility] 19:16 Data reviewed: vital signs, nurses notes, lab test result(s), EKG, radiologic studies, [facility] CT scan, plain films. Data interpreted: Pulse oximetry: on room air is 98 %. Interpretation: normal. Counseling: I had a detailed discussion with the patient and/or guardian regarding: the historical points, exam findings, and any diagnostic results supporting the discharge/admit diagnosis, lab results, radiology results. ED course: Spoke with Dr. Salgado after receiving CT results. Agrees that patient is not a candidate for tPa/Tnk at this time because of the visibility of stroke on CT regardless of evolution of symptoms. Will continue to r/o large thrombus for thrombolectomy . 12/17 18:32 Order name: Basic Metabolic Panel; Complete Time: 19:23 [facility] 12/17 18:32 Order name: CBC with Diff; Complete Time: 19:29 [facility] 12/17 18:32 Order name: Magnesium; Complete Time: 19:23 [facility] 12/17 18:32 Order name: Protime (+inr); Complete Time: 19:16 [facility] 12/17 18:32 Order name: Ptt, Activated; Complete Time: 19:16 [facility] 12/17 18:32 Order name: Troponin High Sensitivity; Complete Time: 19:23 [facility] 12/17 18:32 Order name: Stroke CXR 1 View; Complete Time: 19:16 [facility] 12/17 18:57 Order name: COVID-19/FLU A+B (Document "Date of Onset" if Symptomatic); Complete Time: kj1 20:47 12/18 04:08 Order name: CBC with Automated Diff EDPR 12/18 04:20 Order name: Urinalysis EDPR 12/18 04:21 Order name: Comprehensive Metabolic Panel EDPR 12/18 04:21 Order name: Lipid Profile EDPR 12/18 04:35 Order name: Urine Microscopic Only EDPR 12/17 18:32 Order name: EKG; Complete Time: 18:33 [facility] 12/17 18:32 Order name: Accucheck [facility] 12/17 19:06 Order name: Head angio; Complete Time: 20:05 EDPR 12/17 19:06 Order name: Head Brain Wo Cont; Complete Time: 19:16 [facility] 12/17 19:06 Order name: Neck Angio; Complete Time: 20:05 [facility] 12/18 08:42 Order name: US EDMS 12/18 09:31 Order name: MRI [facility] 12/18 09:33 Order name: MRI [place] 12/18 09:34 Order name: MRI [facility] 12/17 18:32 Order name: Cardiac monitoring; Complete Time: 19:05 [facility] 12/17 18:32 Order name: EKG - Nurse/Tech; Complete Time: 19:05 [facility] 12/17 18:32 Order name: IV Saline Lock; Complete Time: 19:05 [facility] 12/17 18:32 Order name: Labs collected and sent; Complete Time: 19:05 [facility] 12/17 18:32 Order name: NPO; Complete Time: 19:05 [facility] 12/17 18:32 Order name: O2 Per Protocol; Complete Time: 19:05 [facility] 12/17 18:32 Order name: O2 Sat Monitoring; Complete Time: 19:05 [facility] 12/17 18:32 Order name: Stroke Swallow Screen [facility] Administered Medications: 20:02 Drug: NS 0.9% 500 ml Route: IV; Rate: bolus; Site: right antecubital; ke1 21:24 Follow up: IV Status: Completed infusion; IV Intake: 500ml ton 23:33 Drug: Aspirin 81 mg Route: PO; ton 23:34 Follow up: Response: No adverse reaction ton 23:33 Drug: PlaVIX (clopidogrel) 75 mg Route: PO; ton 23:34 Follow up: Response: No adverse reaction ton 23:33 Drug: Atorvastatin 40 mg Route: PO; ton 23:34 Follow up: Response: No adverse reaction ton 23:33 Drug: foLIC Acid 1 mg Route: IVPB; Site: right antecubital; ton 23:34 Follow up: IV Status: Completed infusion; IV Intake: 100ml ton Disposition Summary: 12/17/21 20:05 Hospitalization Ordered Hospitalization Status: Inpatient Admission [facility] Provider: Maddison Yee Condition: Stable jr Problem: new jr8 Symptoms: are unchanged jr8 Bed/Room Type: Standard [facility] Location: Telemetry/MedSurg (Inpatient)(12/18/21 17:43) dw Room Assignment: 220(12/18/21 17:43) Diagnosis - Cerebral infarction, unspecified [facility] Forms: - Medication Reconciliation Form jr8 - SBAR form 8 NIH Stroke Scale - NIH Stroke Score Date: 12/17/2021 Time: 18:42 Total Score = 8 1a. Level of Consciousness (LOC) - 0(Alert) 1b. Level of Consciousness (LOC) (Month \\T\\ Age) - 1(One) 1c. LOC Commands (Open \\T\\ Closes Eyes/Rn Examiner) - 0(Both) 2. Best Gaze (Lateral Gaze Paresis) - 0(Normal) 3. Visual Field Loss - 0(No visual loss) 4. Facial Palsy - 0(Normal) 5a. Left Arm: Motor (10-second hold) - 0(No drift) 5b. Right Arm: Motor (10-second hold) - 1(Drift) 6a. Left Leg: Motor (5-second hold - always test supine) - 0(No drift) 6b. Right Leg: Motor (5-second hold - always test supine) - 2(Drift, some effort against gravity) 7. Limb Ataxia (finger/nose \\T\\ heel/forbes - test with eyes open) - 1(Present in one limb) 8. Sensory Loss (pinprick arms/legs/face) - 1(Mild to moderate loss) 9. Best Language: Aphasia (description/naming/reading) - 1(Mild to moderate aphasia) 10. Dysarthria (speech clarity - read or repeat words) - 1(Mild to Moderate) 11. Extinction and Inattention (visual/tactile/auditory/spatial/personal) - 0(No abnormality) Initials: [facility] NIH Stroke Scale - NIH Stroke Score Date: 12/17/2021 Time: 19:10 Total Score = 9 1a. Level of Consciousness (LOC) - 0(Alert) 1b. Level of Consciousness (LOC) (Month \\T\\ Age) - 1(One) 1c. LOC Commands (Open \\T\\ Closes Eyes/Rn Examiner) - 0(Both) 2. Best Gaze (Lateral Gaze Paresis) - 0(Normal) 3. Visual Field Loss - 0(No visual loss) 4. Facial Palsy - 0(Normal) 5a. Left Arm: Motor (10-second hold) - 0(No drift) 5b. Right Arm: Motor (10-second hold) - 1(Drift) 6a. Left Leg: Motor (5-second hold - always test supine) - 0(No drift) 6b. Right Leg: Motor (5-second hold - always test supine) - 2(Drift, some effort against gravity) 7. Limb Ataxia (finger/nose \\T\\ heel/forbes - test with eyes open) - 2(Present in two limbs) 8. Sensory Loss (pinprick arms/legs/face) - 1(Mild to moderate loss) 9. Best Language: Aphasia (description/naming/reading) - 1(Mild to moderate aphasia) 10. Dysarthria (speech clarity - read or repeat words) - 1(Mild to Moderate) 11. Extinction and Inattention (visual/tactile/auditory/spatial/personal) - 0(No abnormality) Initials: ap3 Addendum: 01/02/2022 18:05 Co-signature as Attending Physician, Lety Rizzo MD. ma2 Signatures: Dispatcher [employer] Elizabeth Cardenas RN Alexis Garcia PA PA 8 Cintia Holloway RN RN cg Alzahri, Mohammad, MD MD ma2 Mellisa Acosta RN RN ld1 Gladys Feldman RN Chevy Persaud RN RN ke1 Corrections: (The following items were deleted from the chart) 12/17 19:11 19:07 NIHSS Score: 8 jr8 jr 22:05 20:05 Telemetry/MedSurg (Inpatient) [facility] 22:05 20:05 [facility] 12/18 17:43 12/17 22:05 [facility] ER HOLD [facility] 12/18 17:43 12/17 22:05 ERHOLD- [facility]
--- NOTE | 2021-12-17 20:07 | ER ---
Nurse's Notes [facility] Name: Terry Sauceda Age: 76 yrs Sex: Male : 1945 Arrival Date: 12/17/2021 Time: 18:20 Bed 19 Private MD: Diagnosis: Cerebral infarction, unspecified Presentation: 12/17 18:28 Chief complaint:. ld1 18:40 Chief complaint: Patient's son or daughter states: right sided weakness since 1629 ld1 today. Pt denies pain. Coronavirus screen: At this time, the client does not indicate any symptoms associated with coronavirus-19. Ebola Screen: No symptoms or risks identified at this time. Initial Sepsis Screen: Does the patient meet any 2 criteria? No. Patient's initial sepsis screen is negative. Does the patient have a suspected source of infection? No. Patient's initial sepsis screen is negative. Risk Assessment: Do you want to hurt yourself or someone else? Patient reports no desire to harm self or others. Onset of symptoms was December 17, 2021. 18:40 Method Of Arrival: Wheelchair ld1 18:40 Acuity: LUIS 3 ld1 Triage Assessment: 18:41 General: Appears in no apparent distress. comfortable, Behavior is calm, cooperative, ld1 appropriate for age. Pain: Denies pain. EENT: No signs and/or symptoms were reported regarding the EENT system. Neuro: Level of Consciousness is awake, alert, obeys commands, Oriented to person, place, time, situation. Respiratory: Airway is patent Respiratory effort is even, unlabored. Musculoskeletal: Reports weakness in right arm and right leg. Historical: - PMHx: 18:41 CVA; High Cholesterol; ld1 - Immunization history:: Adult Immunizations up to date. Screenin:59 Fall Risk No fall in past 12 months (0 pts). Secondary diagnosis (15 points) TIA, IV ap3 access (20 points). Ambulatory Aid- Furniture (30 pts.). Gait- Impaired (20 pts.). Mental Status- Overestimates/Forgets Limitations (15 pts.). Total Srinivasan Fall Scale indicates High Risk Score (45 or more points). Fall prevention measures have been instituted. Side Rails Up X 2 Placed Close to Nursing Station Frequent Obs/Assessments Occuring Family Present and informed to notify staff if the need to leave the bedside As available patient and family educated on Fall Prevention Program and Strategies. 19:12 Abuse screen: Denies threats or abuse. Nutritional screening: No deficits noted. ap3 Tuberculosis screening: No symptoms or risk factors identified. Assessment: 19:11 General: Appears comfortable, Behavior is calm. Pain: Denies pain. Neuro: Level of ap3 Consciousness is awake, alert, Oriented to person, Gait is unsteady, Speech with expressive aphasia noted. Cardiovascular: Patient's skin is warm and dry. Respiratory: Airway is patent Respiratory effort is even, unlabored. Musculoskeletal: Parent/caregiver report the patient having weakness in right leg and right arm. 20:00 Reassessment: No changes from previously documented assessment. Patient and/or family vc1 updated on plan of care and expected duration. Pain level reassessed. 21:17 Reassessment: Patient and/or family updated on plan of care and expected duration. Pain vc1 level reassessed. General: Appears comfortable, Behavior is calm. Pain: Denies pain. Neuro: Level of Consciousness is awake, alert, Oriented to person. 21:21 Reassessment: The pt was moved from room #2, to #19. He is on a hospital bed for comfort. Report will be taken from his nurse, giovanna. Pt is voiding, using a urinal. He was able to move from the stretcher, to the hospital bed, on his own volition. 21:39 Reassessment: The pt is being documented on in [facility]. I have called the 2nd floor to have a nurse that is familiar with [facility] to come help me with the charting, as they are familiar with [facility], not [facility] that we use. 12/18 01:24 Reassessment: The pt's assessment was completed in [facility], for the "Admission ton Assessment". The pt is resting, but his daughter has gone home. He is in NAD. 04:05 Reassessment: Some of the charting will be done, here, in [facility], some will be done in [facility]. The pt is resting and in NAD. He has not c/o any pain. He has weakness to his rt arm, as well as, his cone picker, but his family reports hx of the same. He is sleeping well and in NAD. 04:34 Reassessment: Pt is sleeping with even breaths. Although he begins wheezing when he ton sits on the side of the bed, his lungs are surprisingly, clear. 05:19 Reassessment: US is at bedside, performing carotid study. The pt is tolerating it well ton and being very cooperative. He is in NAD. Vital Signs: 12/17 18:40 BP 128 / 74; Pulse 69; Resp 18; Temp 97.6(TE); Pulse Ox 98% on R/A; Pain 0/10; ld1 20:00 BP 118 / 78; Pulse 64; Resp 24; Pulse Ox 100% on R/A; vc1 12/18 00:19 BP 112 / 68; Pulse 50; Resp 16; Pulse Ox 100% on R/A; Pain 0/10; ton NIH Stroke Scale Scores: 12/17 18:42 NIHSS Score: 8 jr8 19:10 NIHSS Score: 9 ap3 ED Course: 18:20 Patient arrived in ED. rg4 18:31 Alexis Davis PA is PHCP. jr8 18:31 Lety Rizzo MD is Attending Physician. jr8 18:41 Triage completed. ld1 18:41 Arm band placed on right wrist. ld1 19:01 Chevy Neff, MARY is Primary Nurse. ke1 19:07 Head Brain Wo Cont In Process Unspecified. EDMS 19:11 Stroke CXR 1 View In Process Unspecified. EDMS 19:12 Patient has correct armband on for positive identification. Bed in low position. Call ap3 light in reach. Side rails up X2. Adult w/ patient. potline monitor on. Pulse ox on. NIBP on. Door closed. Noise minimized. 19:46 Head angio In Process Unspecified. EDMS 19:46 Neck Angio In Process Unspecified. EDMS 20:05 Maddison Yee MD is Hospitalizing Provider. jr8 21:23 No provider procedures requiring assistance completed. ton 12/18 09:31 Primary Nurse role handed off by Chevy Neff, MARY eb 17:54 Janny Milligan, RN is Primary Nurse. buricaga 18:12 Patient admitted, IV remains in place. burciaga Administered Medications: 12/17 20:02 Drug: NS 0.9% 500 ml Route: IV; Rate: bolus; Site: right antecubital; ke1 21:24 Follow up: IV Status: Completed infusion; IV Intake: 500ml ton 23:33 Drug: Aspirin 81 mg Route: PO; ton 23:34 Follow up: Response: No adverse reaction ton 23:33 Drug: PlaVIX (clopidogrel) 75 mg Route: PO; ton 23:34 Follow up: Response: No adverse reaction ton 23:33 Drug: Atorvastatin 40 mg Route: PO; ton 23:34 Follow up: Response: No adverse reaction ton 23:33 Drug: foLIC Acid 1 mg Route: IVPB; Site: right antecubital; ton 23:34 Follow up: IV Status: Completed infusion; IV Intake: 100ml ton Intake: 21:24 IV: 500ml; Total: 500ml. ton 23:34 IV: 100ml; Total: 600ml. ton Outcome: 20:05 Decision to Hospitalize by Provider. jr8 21:24 Condition: stable ton 12/18 18:11 Admitted to Tele accompanied by tech. burciaga 18:12 Admitted to Tele room 220. burciaga 18:12 Condition: good 18:12 Instructed on the need for admit. 18:13 Patient left the ED. burciaga NIH Stroke Scale - NIH Stroke Score Date: 12/17/2021 Time: 18:42 Total Score = 8 1a. Level of Consciousness (LOC) - 0(Alert) 1b. Level of Consciousness (LOC) (Month \\T\\ Age) - 1(One) 1c. LOC Commands (Open \\T\\ Closes Eyes/Website Admin) - 0(Both) 2. Best Gaze (Lateral Gaze Paresis) - 0(Normal) 3. Visual Field Loss - 0(No visual loss) 4. Facial Palsy - 0(Normal) 5a. Left Arm: Motor (10-second hold) - 0(No drift) 5b. Right Arm: Motor (10-second hold) - 1(Drift) 6a. Left Leg: Motor (5-second hold - always test supine) - 0(No drift) 6b. Right Leg: Motor (5-second hold - always test supine) - 2(Drift, some effort against gravity) 7. Limb Ataxia (finger/nose \\T\\ heel/forbes - test with eyes open) - 1(Present in one limb) 8. Sensory Loss (pinprick arms/legs/face) - 1(Mild to moderate loss) 9. Best Language: Aphasia (description/naming/reading) - 1(Mild to moderate aphasia) 10. Dysarthria (speech clarity - read or repeat words) - 1(Mild to Moderate) 11. Extinction and Inattention (visual/tactile/auditory/spatial/personal) - 0(No abnormality) Initials: jr8 NIH Stroke Scale - NIH Stroke Score Date: 12/17/2021 Time: 19:10 Total Score = 9 1a. Level of Consciousness (LOC) - 0(Alert) 1b. Level of Consciousness (LOC) (Month \\T\\ Age) - 1(One) 1c. LOC Commands (Open \\T\\ Closes Eyes/Website Admin) - 0(Both) 2. Best Gaze (Lateral Gaze Paresis) - 0(Normal) 3. Visual Field Loss - 0(No visual loss) 4. Facial Palsy - 0(Normal) 5a. Left Arm: Motor (10-second hold) - 0(No drift) 5b. Right Arm: Motor (10-second hold) - 1(Drift) 6a. Left Leg: Motor (5-second hold - always test supine) - 0(No drift) 6b. Right Leg: Motor (5-second hold - always test supine) - 2(Drift, some effort against gravity) 7. Limb Ataxia (finger/nose \\T\\ heel/forbes - test with eyes open) - 2(Present in two limbs) 8. Sensory Loss (pinprick arms/legs/face) - 1(Mild to moderate loss) 9. Best Language: Aphasia (description/naming/reading) - 1(Mild to moderate aphasia) 10. Dysarthria (speech clarity - read or repeat words) - 1(Mild to Moderate) 11. Extinction and Inattention (visual/tactile/auditory/spatial/personal) - 0(No abnormality) Initials: ap3 Signatures: Dispatcher [employer] EDMS Alexis Davis PA PA jr8 Gabriella Holloway4 Tara Painter RN RN ap3 Zulma Morales Lauren RN RN ld1 Gladys Feldman RN RN bo Au-Janny Goodwin RN RN ha Calcote, Vanessa RN MARY vc1 Chevy Neff RN MARY ke1 Corrections: (The following items were deleted from the chart) 12/17 19:11 18:59 Fall Risk No fall in past 12 months (0 pts). Secondary diagnosis (15 ap3 points) TIA, IV access (20 points). Ambulatory Aid- Furniture (30 pts.). Gait- Impaired (20 pts.). Mental Status- Overestimates/Forgets Limitations (15 pts.). Total Srinivasan Fall Scale indicates High Risk Score (45 or more points). Fall prevention measures have been instituted. Side Rails Up X 2 Placed Close to Nursing Station Frequent Obs/Assessments Occuring Family Present and informed to notify staff if the need to leave the bedside As available patient and family educated on Fall Prevention Program and Strategies. ap3 19:11 18:59 NIHSS Score: 18 ap3 ap3
--- NOTE | 2021-12-17 20:30 | P.HP ---
Certification for Inpatient Patient admitted to: Inpatient With expected LOS: >2 Midnights Patient will require the following post-hospital care: None Practitioner: I am a practitioner with admitting privileges, knowledge of patient current condition, hospital course, and medical plan of care. Services: Services provided to patient in accordance with Admission requirements found in Title 42 Section 412.3 of the Code of Federal Regulations Patient History Date of Service: 12/17/21 Reason for admission: Ischemic CVA History of Present Illness: 76-year-old male with history of CVA, hyperlipidemia presents the emergency department for gait disturbance, right-sided weakness. Family reports symptoms began around 1644. Code stroke was called and patient brought to the ER CT without contrast demonstrated moderate to large nonhemorrhagic subacute CVA suspected left parietal region Case was discussed with neurology given that ischemic findings are noted on CT it was determined patient would not likely benefit from TN K patient had CTA of the head and neck CT of the head revealed diminished irregular flow in left M1 segment likely related to atherosclerosis, diminished flow in the left intracranial vertebral artery likely atherosclerotic CTA of the neck with mild less than 50% narrowing in the proximal left internal carotid artery. These results were also reviewed with neurology who recommends admission here as patient not a candidate for intra-arterial intervention at this time. Allergies No Known Allergies Allergy (Verified 12/09/16 15:42) Home Medications: Acetaminophen [Tylenol*] 650 mg PO Q4H PRN #0 tab 12/10/16 Atorvastatin Calcium [Lipitor] 80 mg PO BEDTIME #30 tab 12/10/16 Clopidogrel Bisulfate [Plavix*] 75 mg PO DAILY #30 tablet 12/10/16 Duloxetine [Cymbalta *] 20 mg PO DAILY #30 cap 12/10/16 Aspirin [Aspirin EC 81 MG] 81 mg PO DAILY #30 tablet. 12/12/16 - Past Medical/Surgical History Diabetic: No -: heart cath, stent placed -: chronic afib? -: htn -: smoker -: CVA -: Unknown - Family History Sister -: Diabetes - Social History Smoking Status: Unknown if ever smoked Alcohol use: No CD- Drugs: No Caffeine use: Yes Place of Residence: Home Review of Systems demenita, Physical Examination - Physical Exam General: Alert, In no apparent distress, Oriented x1 HEENT: Atraumatic, PERRLA, Mucous membr. moist/pink, EOMI, Sclerae nonicteric Neck: Supple, 2+ carotid pulse no bruit, No LAD, Without JVD or thyroid abnormality Respiratory: Clear to auscultation bilaterally, Normal air movement Cardiovascular: Regular rate/rhythm, Normal S1 S2 Capillary refill: <2 Seconds Gastrointestinal: Normal bowel sounds, No tenderness Musculoskeletal: No tenderness Integumentary: No rashes Neurological: Normal affect, Other (Confusion, expressive aphasia, right-sided weakness, gait disturbance) Lymphatics: No axilla or inguinal lymphadenopathy - Studies Laboratory Data (last 24 hrs) 12/17/21 18:53: PT 11.4, INR 1.04, APTT 29.6 12/17/21 18:53: WBC 10.3, Hgb 15.6, Hct 44.5, Plt Count 312 12/17/21 18:53: Sodium 139, Potassium 4.2, BUN 19 H, Creatinine 1.47 H, Glucose 103, Magnesium 1.9 Assessment and Plan - Plan Assessment: Moderate to large left parietal subacute ischemic CVA Hypertension Hyperlipidemia Questionable history A. fib Plan: Moderate to large left parietal subacute ischemic CVA: MRI stroke protocol, echocardiogram, carotid Doppler ordered neurology consulted continue aspirin, statin, folic acid, Plavix swallow screen speech therapy physical therapy. Hypertension: we will allow for some permissive hypertension this evening, restart home medications. Hyperlipidemia: Continue statin Questionable history A. fib: Patient currently in sinus rhythm upon chart review it was noted that patient history of A. fib not on any anticoagulation at this time we will monitor on telemetry and obtain echocardiogram to determine if patient has A. fib. DVT PPX: Lovenox Code status: Full Discharge Plan: Home Plan to discharge in: 48 Hours - Advance Directives Does patient have a Living Will: No Does patient have a Durable POA for Healthcare: No - Code Status/Comfort Care Code Status Assessed: Yes (Full code) Critical Care: No Time Spent Managing Pts Care (In Minutes): 55
[2021-12-17 20:45] LABS: SARS-COV-2 RT PCR NEGATIVE (NEGATIVE)
[2021-12-17] MEDS ORDERED: CLOPIDOGREL 75 MG TABLET ONE (23:23)
[2021-12-17] MEDS ORDERED: NA CHLORIDE 0.9% 100 ML IV ONE (23:23)
[2021-12-17] MEDS ORDERED: ATORVASTATIN 20 MG TAB ONE (23:23)
[2021-12-17] MEDS ORDERED: FOLIC ACID 5 MG/ML VIAL ONE (23:25)
[2021-12-17] MEDS ORDERED: ASPIRIN 81 MG CHEWABLE TABLET ONE (23:26)
[2021-12-18 01:21] VITALS: BMI 25.0
[2021-12-18] MEDS: ATORVASTATIN 40 MG TAB PO SCH ×2 (02:30→21:00)
[2021-12-18] MEDS ORDERED: ONDANSETRON 4 MG/2 ML VIAL IV PRN (02:30)
[2021-12-18 04:01] LABS: Absolute Lymphocytes (CBC) 1.3 K/uL (0.7-4.9); Hematocrit 40.5 % (39.6-49.0); Lymphocytes % 16.1 % (15.3-44.8); MPV 7.4 fL (7.6-11.3); RBC Red Blood Cell Count 4.55 M/uL (4.33-5.43)
[2021-12-18 04:20] LABS: Urine Appearance Clear (Clear); Urine Bilirubin Negative (Negative); Urine Blood Trace-intact (Negative); Urine Color Yellow (Yellow); Urine Glucose Negative (Negative); Urine Protein Negative (Negative); Urine Specific Gravity 1.015 (1.005-1.030); Urine Urobilinogen 0.2 mg/dL (0.2-1.0)
[2021-12-18 04:21] LABS: Albumin 3.3 g/dL (3.4-5.0); Bilirubin Total 0.6 mg/dL (0.2-1.0); Protein, Total 7.2 g/dL (6.4-8.2)
[2021-12-18 04:24] LABS: Urine Microscopic Reflex ORDER UMIC
[2021-12-18 04:35] LABS: Urine Bacteria <20 /HPF (NONE SEEN); Urine RBC <5 /HPF (NONE SEEN)
--- NOTE | 2021-12-18 07:44 | EKG ---
Test Date: 2021-12-17 Test Time: 18:58:40 Oceanographer Physical: ALP MEASUREMENT RESULTS: Intervals: Rate: 56 CA: 106 QRSD: 72 QT: 414 QTc: 399 [place]: P: 75 CA: 106 QRS: 68 T: 96 INTERPRETIVE STATEMENTS: Sinus bradycardia with short CA Nonspecific ST and T wave abnormality Abnormal ECG Compared to ECG 01/28/2017 13:02:43 Short CA interval now present ST (T wave) deviation now present Sinus rhythm no longer present Electronically Signed On 12-18-21 07:42:18 CDT by Mukesh Sloan
--- NOTE | 2021-12-18 08:42 | RAD REPORT ---
EXAM DESCRIPTION: US - CP - 12/18/2021 5:36 am CLINICAL HISTORY: cva Headache, drowsiness, CVA symptomology COMPARISON: Neck Angio dated 12/17/2021 TECHNIQUE: Real-time sonographic evaluation of both carotid systems was performed. Doppler interroga tion was performed with waveform tracing bilaterally. FINDINGS: Normal high resistance waveforms are noted in both external carotid arteries. The common c arotid arteries and internal carotid arteries show normal low resistance waveforms. Mild hard plaque is seen in both carotid bulbs. Peak systolic and end diastolic velocity values and t he ICA/CCA ratios are in the non-hemodynamically significant range. Antegrade flow seen in both vertebral arteries. IMPRESSION: Mild hard plaque is seen in both carotid bulbs. No evidence of a hemodynamically significant stenosis.
[2021-12-18] MEDS: CLOPIDOGREL 75 MG TABLET PO SCH (09:00)
[2021-12-18] MEDS: ENOXAPARIN 40 MG/0.4 ML SQ SCH (09:00)
[2021-12-18] MEDS: ASPIRIN EC 81 MG TAB PO SCH (09:00)
[2021-12-18] MEDS: FOLIC ACID 1 MG TABLET PO SCH (09:00)
--- NOTE | 2021-12-18 09:30 | RAD REPORT ---
EXAM DESCRIPTION: MRI - Brain W/Wo Cont - 12/18/2021 9:17 am CLINICAL HISTORY: CVA Headache, drowsiness, CVA symptomology COMPARISON: Head angio dated 12/17/2021 TECHNIQUE: Multi-sequence, multiplanar MR imaging of the brain was performed with contrast. FINDINGS: 5 cm area of restricted diffusion in diminished ADC signal is seen in the left temporopari etal region compatible with acute CVA. No hemorrhage is present. No hydrocephalus, no midline shift or extra-axial fluid collection. No pathologic areas of post-contr ast enhancement. IMPRESSION: 5 cm acute nonhemorrhagic CVA left temporoparietal region. No pathologic post-contrast enhancement suspected.
--- NOTE | 2021-12-18 09:32 | RAD REPORT ---
EXAM DESCRIPTION: MRI - MRA Head Wo Cont - 12/18/2021 9:17 am CLINICAL HISTORY: CVA CVA COMPARISON: Brain W/Wo Cont dated 12/18/2021 FINDINGS: 3D noncontrast [id number] MR angiography of the [place] was performed. Irregular areas of mild stenosis is seen involving the left M1 segment with diminished left middle ce rebral artery flow. No aneurysm is seen. No vascular malformation. There is diminished flow seen intracranial left vertebral artery with a diminutive basilar artery not ed. IMPRESSION: Irregular stenotic appearance and diminished flow left M1 segment. This is likely due to underlying atherosclerotic vascular disease.
--- NOTE | 2021-12-18 09:33 | RAD REPORT ---
EXAM DESCRIPTION: MRI - MRA Neck W/Wo Cont - 12/18/2021 9:17 am CLINICAL HISTORY: CVA Headache, drowsiness. COMPARISON: MRA NECK W WO CONTRAST dated 04/04/2014 FINDINGS: Contrast enhance 2D [id number] MR angiography of the neck vessels was performed. A left aortic arch is noted. Normal appearance to both common carotid artery seen. There is mild narr owing of the carotid bulbs seen without significant carotid stenosis bilaterally. Antegrade flow seen in both vertebral arteries through the neck. IMPRESSION: No significant flow abnormality is seen in the neck vessels.
[2021-12-18] MEDS ORDERED: ASPIRIN 81 MG CHEWABLE TABLET ONE (09:37)
[2021-12-18] MEDS ORDERED: ENOXAPARIN 40 MG/0.4 ML SQ ONE (09:38)
[2021-12-18] MEDS ORDERED: CLOPIDOGREL 75 MG TABLET ONE (09:38)
[2021-12-18] MEDS ORDERED: FOLIC ACID 1 MG TABLET ONE (09:38)
--- NOTE | 2021-12-18 15:13 | P.PN ---
Subjective Date of Service: 12/18/21 Chief Complaint: Ischemic CVA Subjective: No new changes, No C/O voiced (Seen alongside with Dr. Genaoneurologearle Family reports still smoking history Prior history of CVA and manage at acute rehab unit 4 years ago) Physical Examination - Vital Signs Temperature: 97.9 F Blood Pressure: 122/73 Pulse: 61 Respirations: 17 Pulse Ox (%): 99 - Physical Exam General: Alert, In no apparent distress, Oriented x3 HEENT: Atraumatic, Normocephalic, PERRLA Neck: Supple, 2+ carotid pulse no bruit, JVD not distended Respiratory: Clear to auscultation bilaterally, Normal air movement Cardiovascular: Normal pulses, Regular rate/rhythm, Normal S1 S2 Gastrointestinal: Normal bowel sounds, Soft and benign, Non-distended Musculoskeletal: No clubbing, No swelling Neurological: Normal strength at 5/5 x4 extr (Mild right upper extremity weakness) - Studies Laboratory Data (last 24 hrs) 12/17/21 18:53: PT 11.4, INR 1.04, APTT 29.6 12/17/21 18:53: WBC 10.3, Hgb 15.6, Hct 44.5, Plt Count 312 12/17/21 18:53: Sodium 139, Potassium 4.2, BUN 19 H, Creatinine 1.47 H, Glucose 103, Magnesium 1.9 Assessment And Plan - Code Status/Comfort Care Code Status: Full Code Physician Review: Patient Assessed, Agree with Above Assessment and Plan Physician Review Additional Text: 12/18/21 15:11 MRI brainIMPRESSION: 5 cm acute nonhemorrhagic CVA left temporoparietal region. No pathologic post-contrast enhancement suspected MRA head and neckflow abnormality of left M1 segment possibly due to atherosclerosis disease Impression Left CVA History of tobacco use Hypertension History of questionable remote A. fibin sinus rhythm now. Not on any anticoagulation Plan Appreciate neurology evaluation Obtain lipid panel Start high-dose statin/aspirin/Plavix Follow telemetry monitoring for A. fib Obtain TSH Follow PT/OT eval as well as rehab consult Plan for transfer to rehab if approved by insurance Follow echocardiogram Smoking cessation discussed with family Full code Disposition possible hospital stay for 1 to 2 days Time Spent Managing PTS Care (In Minutes): 35
[2021-12-18] MEDS: NICOTINE 21 MG/PAT TD SCH (15:30)
[2021-12-18 20:56] LABS: Thyroid Stimulating Hormone 1.1 uIU/mL (0.360-3.740)
[2021-12-19 05:39] LABS: Absolute Lymphocytes (CBC) 1.3 K/uL (0.7-4.9); Hematocrit 42.2 % (39.6-49.0); Lymphocytes % 11.4 % (15.3-44.8); MPV 7.4 fL (7.6-11.3); RBC Red Blood Cell Count 4.76 M/uL (4.33-5.43)
[2021-12-19 06:01] LABS: Albumin 3.1 g/dL (3.4-5.0); Bilirubin Total 0.6 mg/dL (0.2-1.0); Protein, Total 6.8 g/dL (6.4-8.2)
[2021-12-19 06:02] LABS: Potassium 4.1 mmol/L (3.5-5.1)
[2021-12-19] MEDS: ENOXAPARIN 40 MG/0.4 ML SQ SCH (09:56)
[2021-12-19] MEDS: NICOTINE 21 MG/PAT TD SCH (09:56)
[2021-12-19] MEDS: FOLIC ACID 1 MG TABLET PO SCH (09:56)
[2021-12-19] MEDS: CLOPIDOGREL 75 MG TABLET PO SCH (09:56)
[2021-12-19] MEDS: ASPIRIN EC 81 MG TAB PO SCH (09:56)
--- NOTE | 2021-12-19 11:23 | P.PN ---
Subjective Date of Service: 12/19/21 Chief Complaint: Ischemic CVA Subjective: No new changes, No C/O voiced Physical Examination - Vital Signs Temperature: 97.8 F Blood Pressure: 124/62 Pulse: 51 Respirations: 16 Pulse Ox (%): 99 Assessment And Plan Physician Review: Patient Assessed, Agree with Above Assessment and Plan Physician Review Additional Text: Physical Exam General: Alert, In no apparent distress, Oriented x3, Cooperative HEENT: Atraumatic, Normocephalic, PERRLA Neck: Supple, JVD not distended Respiratory: Clear to auscultation bilaterally, Normal air movement Cardiovascular: No edema, Normal pulses, Regular rate/rhythm, Normal S1 S2 Capillary refill: <2 Seconds Gastrointestinal: Normal bowel sounds, Soft and benign, Non-distended, No ascites Musculoskeletal: No clubbing, No swelling Integumentary: No rashes, No breakdown, No tenderness/swelling Neurological: Reduced Powerandstrength at 4/5 RUE , others 5/5 ,Mild dysarthria , Sensation intact, Cranial nerves 3-12 intact MRI brainIMPRESSION: 5 cm acute nonhemorrhagic CVA left temporoparietal region. No pathologic post-contrast enhancement suspected MRA head and neckflow abnormality of left M1 segment possibly due to atherosclerosis disease Echoreported, no valvular abnormality Telemetryno A. fib Impression Left CVA History of tobacco use Hypertension History of questionable remote A. fibin sinus rhythm now. Not on any anticoagulation Plan Clinically stable Continue PT and OT Plan for transfer to rehab when accepted Continue high-dose statin/aspirin/Plavix Start nicotine patch, smoking cessation discussed again with patient Full code Disposition possible hospital stay for 1 to 2 days 12/19/21 11:17 Time Spent Managing PTS Care (In Minutes): 35
--- NOTE | 2021-12-19 11:30 | P.DS ---
Admission Date: 12/17/21 Discharge Date: 12/19/21 Disposition: TRANSFER TO SNF - REHAB Discharge Condition: FAIR Reason for Admission: Ischemic CVA Brief History of Present Illness: History of Present Illness: 76-year-old male with history of CVA, hyperlipidemia presents the emergency department for gait disturbance, right-sided weakness. Family reports symptoms began around 1645. Code stroke was called and patient brought to the ER CT without contrast demonstrated moderate to large nonhemorrhagic subacute CVA suspected left parietal region Case was discussed with neurology given that ischemic findings are noted on CT it was determined patient would not likely benefit from TN K patient had CTA of the head and neck CT of the head revealed diminished irregular flow in left M1 segment likely related to atherosclerosis, diminished flow in the left intracranial vertebral artery likely atherosclerotic CTA of the neck with mild less than 50% narrowing in the proximal left internal carotid artery. These results were also reviewed with neurology who recommends admission here as patient not a candidate for intra-arterial intervention at this time. Allergies No Known Allergies Allergy (Verified 12/09/16 15:42) Home Medications: Acetaminophen [Tylenol*] 650 mg PO Q4H PRN #0 tab 12/10/16 Atorvastatin Calcium [Lipitor] 80 mg PO BEDTIME #30 tab 12/10/16 Clopidogrel Bisulfate [Plavix*] 75 mg PO DAILY #30 tablet 12/10/16 Duloxetine [Cymbalta *] 20 mg PO DAILY #30 cap 12/10/16 Aspirin [Aspirin EC 81 MG] 81 mg PO DAILY #30 tablet. 12/12/16 Hospital Course: Hospital course Patient with remote history of left CVA, hypertension, chronic tobacco usestill actively smokes, HLD presented because of new onset dysarthria with right arm weakness. Patient had a CT scan done as well as an MRI with finding of a 5 cm acute nonhemorrhagic left temporoparietal region CVA. MRI as well as carotid Doppler shows left M1 segment flow abnormality consistent with atherosclerotic disease. Patient has a questionable history of A. fib but was in sinus rhythm on EKG as well as telemetry showing normal sinus rhythm throughout hospital stay. Patient had an echocardiogram done that shows no abnormality. He was evaluated by neurology. His area of CVA was similar to the previous area with mild expansion. Patient was evaluated by physical therapy and OT. Patient was felt to benefit from acute inpatient rehab Physical Exam General: Alert, In no apparent distress, Oriented x3, Cooperative HEENT: Atraumatic, Normocephalic, PERRLA Neck: Supple, JVD not distended Respiratory: Clear to auscultation bilaterally, Normal air movement Cardiovascular: No edema, Normal pulses, Regular rate/rhythm, Normal S1 S2 Capillary refill: <2 Seconds Gastrointestinal: Normal bowel sounds, Soft and benign, Non-distended, No ascites Musculoskeletal: No clubbing, No swelling Integumentary: No rashes, No breakdown, No tenderness/swelling Neurological: Reduced Power and strength at 4/5 RUE , others 5/5 ,Mild dysarthria , Sensation intact, Cranial nerves 3-12 intact MRI brain 5 cm acute nonhemorrhagic CVA left temporoparietal region. No pathologic post-contrast enhancement suspected MRA head and neckflow abnormality of left M1 segment possibly due to atherosclerosis disease Echoreported, no valvular abnormality Telemetryno A. fib Impression Left CVA History of tobacco use Hypertension HLD Vital Signs/Physical Exam: Temp Pulse Resp BP Pulse Ox 97.8 F 51 16 124/62 99 12/19/21 11:23 12/19/21 11:23 12/19/21 11:23 12/19/21 11:23 12/19/21 11:23 Laboratory Data at Discharge: WBC 11.3 K/uL (4.3-10.9) H D 12/19/21 05:15 Hgb 14.6 g/dL (13.6-17.9) 12/19/21 05:15 Hct 42.2 % (39.6-49.0) 12/19/21 05:15 Plt Count 271 K/uL (152-406) 12/19/21 05:15 PT 11.4 SECONDS (9.5-12.5) 12/17/21 18:53 INR 1.04 12/17/21 18:53 APTT 29.6 SECONDS (24.3-36.9) 12/17/21 18:53 Sodium 137 mmol/L (136-145) 12/19/21 05:15 Potassium 4.1 mmol/L (3.5-5.1) 12/19/21 05:15 BUN 18 mg/dL (7-18) 12/19/21 05:15 Creatinine 1.35 mg/dL (0.55-1.3) H 12/19/21 05:15 Glucose 84 mg/dL (74-106) 12/19/21 05:15 Magnesium 2.0 mg/dL (1.8-2.4) 12/18/21 20:10 Total Bilirubin 0.6 mg/dL (0.2-1.0) 12/19/21 05:15 AST 25 U/L (15-37) 12/19/21 05:15 ALT 16 U/L (12-78) 12/19/21 05:15 Alkaline Phosphatase 100 U/L (45-117) 12/19/21 05:15 Triglycerides 55 mg/dL (<150) 12/18/21 03:25 Cholesterol 204 mg/dL (<200) H 12/18/21 03:25 HDL Cholesterol 41 mg/dL (40-60) 12/18/21 03:25 Cholesterol/HDL Ratio 4.98 12/18/21 03:25 Home Medications: Acetaminophen [Tylenol*] 650 mg PO Q4H PRN #0 tab 12/10/16 Atorvastatin Calcium [Lipitor] 80 mg PO BEDTIME #30 tab 12/10/16 Clopidogrel Bisulfate [Plavix*] 75 mg PO DAILY #30 tablet 12/10/16 Duloxetine [Cymbalta *] 20 mg PO DAILY #30 cap 12/10/16 Aspirin [Aspirin EC 81 MG] 81 mg PO DAILY #30 tablet. 12/12/16 Nicotine [Nicoderm*] 21 mg TD DAILY #14 patch.td24 12/19/21 New Medications: Nicotine [Nicoderm*] 21 mg TD DAILY #14 patch.td24 Diet: ADA Followup: Alex Toro MD [ASSOCIATE-ACTIVE - CAN ADMIT] - 1-2 Weeks NONE,NONE [Primary Care Provider] - Time spent managing pt's care (in minutes): 35
[2021-12-19] MEDS ORDERED: ALBUTEROL 2.5 MG/3 ML NEB SOL NEB PRN (13:00)
[2021-12-19] MEDS: ATORVASTATIN 40 MG TAB PO SCH (22:00)
[2021-12-20] MEDS: FOLIC ACID 1 MG TABLET PO SCH (09:30)
[2021-12-20] MEDS: ASPIRIN EC 81 MG TAB PO SCH (09:30)
[2021-12-20] MEDS: ENOXAPARIN 40 MG/0.4 ML SQ SCH (09:30)
[2021-12-20] MEDS: NICOTINE 21 MG/PAT TD SCH (09:30)
[2021-12-20] MEDS: CLOPIDOGREL 75 MG TABLET PO SCH (09:31)
--- NOTE | 2021-12-20 13:29 | P.PN ---
Subjective Date of Service: 12/20/21 Chief Complaint: Ischemic CVA Subjective: No new changes, C/O voiced (Bilateral leg pain, more over right leg) Physical Examination - Vital Signs Temperature: 97.1 F Blood Pressure: 136/84 Pulse: 67 Respirations: 18 Pulse Ox (%): 95 Assessment And Plan Physician Review: Patient Assessed, Agree with Above Assessment and Plan Physician Review Additional Text: Physical Exam General: Alert, In no apparent distress, Oriented x3, Cooperative HEENT: Atraumatic, Normocephalic, PERRLA Neck: Supple, JVD not distended Respiratory: Clear to auscultation bilaterally, Normal air movement Cardiovascular: No edema, Normal pulses, Regular rate/rhythm, Normal S1 S2 Capillary refill: <2 Seconds Gastrointestinal: Normal bowel sounds, Soft and benign, Non-distended, No ascites Musculoskeletal: Positive with tenderness of both lower extremity extending from the mid thigh to the ankle Integumentary: No rashes, No breakdown, No tenderness/swelling Neurological: Reduced Power and strength at 4/5 RUE , others 5/5 ,Mild dysarthria , Sensation intact, Cranial nerves 3-12 intact MRI brainIMPRESSION: 5 cm acute nonhemorrhagic CVA left temporoparietal region. No pathologic post-contrast enhancement suspected MRA head and neckflow abnormality of left M1 segment possibly due to atherosclerosis disease Echoreported, no valvular abnormality Telemetryno A. fib Impression Left CVA History of tobacco use Hypertension History of questionable remote A. fibin sinus rhythm now. Not on any anticoagulation Bilateral leg painpossibly PVD Plan May be due to PVD, obtain arterial and venous Doppler ultrasounds today Consider neuropathy if not improving and negative ultrasound Clinically stable Continue PT and OT Plan for transfer to rehab when accepted Continue high-dose statin/aspirin/Plavix c/w nicotine patch, smoking cessation discussed again with patient Full code Disposition possible hospital stay for 1 to 2 days 12/20/21 13:28 Time Spent Managing PTS Care (In Minutes): 35
--- NOTE | 2021-12-20 16:01 | RAD REPORT ---
EXAM DESCRIPTION: US - Lower Extremity Arterial Bilat - 12/20/2021 3:40 pm CLINICAL HISTORY: b/l leg pain Pain, swelling, claudication. COMPARISON: No comparisons TECHNIQUE: Bilateral lower extremity arterial Doppler examination was performed with waveform brittani cheng FINDINGS: Significant common femoral artery to superficial femoral artery hard plaquing is seen. No flow detected in the right or left mid to distal superficial femoral arteries. This is suspicious for occlusion. Reconstitution of blood flow distally in both popliteal arteries is significantly blunted and monopha sic. IMPRESSION: The findings are suspicious for occlusion of the mid to distal superficial femoral arter ies bilaterally. Some reconstitution of flow is seen in the popliteal vessels but is quite blunted an d monophasic. CT angiography of both lower extremity arterial systems could be performed for further evaluation.
[2021-12-20] MEDS: ATORVASTATIN 40 MG TAB PO SCH (20:46)
[2021-12-21 02:05] VITALS: O2SAT 96
[2021-12-21 06:08] LABS: Albumin 2.8 g/dL (3.4-5.0); Bilirubin Total 0.5 mg/dL (0.2-1.0); Potassium 3.9 mmol/L (3.5-5.1); Protein, Total 6.7 g/dL (6.4-8.2)
--- NOTE | 2021-12-21 07:47 | ECHO ---
HEIGHT: 5 ft 5 in WEIGHT: 150 lb 0 oz DATE OF STUDY: 12/18/[address]: Greg Herbert NP 2-DIMENSIONAL: YES M.MODE: YES DOPPLER: YES COLOR FLOW: YES TDS: YES PORTABLE: YES DEFINITY: NO BUBBLE STUDY: NO DIAGNOSIS: CEREBRAL VASCULAR ACCIDENT CARDIAC HISTORY: CATHERIZATION: NO SURGERY: NO PROSTHETIC VALVE: NO PACEMAKER: NO MEASUREMENTS (cm) DIASTOLIC (NORMALS) SYSTOLIC (NORMALS) IVSd 0.8 (0.6-1.2) LA Diam 3.0 (1.9-4.0) LVEF 60% LVIDd 3.2 (3.5-5.7) LVIDs 2.2 (2.0-3.5) %FS 31% LVPWd 0.8 (0.6-1.2) Ao Diam 2.3 (2.0-3.7) 2 DIMENSIONAL ASSESSMENT: RIGHT ATRIUM: NORMAL LEFT ATRIUM: NORMAL RIGHT VENTRICLE: NORMAL LEFT VENTRICLE: NORMAL TRICUSPID VALVE: NORMAL MITRAL VALVE: NORMAL PULMONIC VALVE: NORMAL AORTIC VALVE: NORMAL PERICARDIAL EFFUSION: NONE AORTIC ROOT: NORMAL LEFT VENTRICULAR WALL MOTION: NORMAL DOPPLER/COLOR FLOW: NORMAL COMMENTS: TECHNICALLY DIFFICULT STUDY. NORMAL LEFT VENTRICULAR SIZE AND FUNCTION. NO VEGETATION OR THROMBUS. NO EFFUSION. TECHNOLOGIST: Emmanuel CARDONA
[2021-12-21 08:42] VITALS: BP 133/78; TEMP 97.1
[2021-12-21] MEDS ORDERED: POTASSIUM CL SA 10 MEQ TAB PO ONE (09:00)
--- NOTE | 2021-12-21 09:07 | RAD REPORT ---
EXAM DESCRIPTION: CT - Lower Ext Angio - 12/21/2021 8:46 am CLINICAL HISTORY: Leg pain COMPARISON: December 20, 2021 ultrasound TECHNIQUE: Computed tomography angiography of the lower abdominal aorta, pelvis and bilateral lower extremities performed with coronal and sagittal reconstruction. 100 cc Isovue 370 administered intrav enously MIP 3D reconstruction was performed All CT scans are performed using dose optimization technique as appropriate and may include automated exposure control or mA/KV adjustment according to patient size. FINDINGS: The lower abdominal aorta has an AP diameter of 2.7 centimeters. It contains a moderate to large amount of thrombus. The right common iliac artery measures 2 centimeters containing large amount thrombus. An ulcerated p laque is present. High-grade stenosis proximal left internal iliac artery. Superficial femoral stents. The stents are occluded. Collaterals reconstitute the popliteal arteries. Distal peroneal artery is occluded. The distal left posterior tibial artery occluded. The distal right posterior tibial artery with dimin ished flow. IMPRESSION: Moderate to large amount of thrombus within the distal abdominal aorta Occlusion of bilateral superficial femoral arterial stents.
[2021-12-21] MEDS: FOLIC ACID 1 MG TABLET PO SCH (09:08)
[2021-12-21] MEDS: ASPIRIN EC 81 MG TAB PO SCH (09:08)
[2021-12-21] MEDS: ENOXAPARIN 40 MG/0.4 ML SQ SCH (09:08)
[2021-12-21] MEDS: CLOPIDOGREL 75 MG TABLET PO SCH (09:08)
[2021-12-21] MEDS: NICOTINE 21 MG/PAT TD SCH (09:08)
--- NOTE | 2021-12-22 10:37 | CON ---
Reason For Consultation: Consultation called because of stroke. History Of Present Illness: Mr. Sauceda is a 76-year-old right-handed patient, who is untreated for his hypertension and dyslipidemia after he stopped his medications 2 years ago when his . He is also a heavy daily smoker. The patient was known to be well around 11 a.m. on 12/17/2021, but there is not clear as to when his symptoms began. Chart notes around 4:45. The pat rebecca's daughter said he could not stand and ambulate, he was falling to the right side because of wea kness in the right leg. Right arm is also hanging lower. His face appeared okay. His speech was fa irly clear, but the new deficit was prominent. He came to [facility] and had a head CT scan at 7:07 p.m. The study identified a moderate to large nonhemorrhagic subacute infarct suspected in the left parietal region. Given that finding, the patient was never considered a candidate for tPA. In addition, his time of onset of his deficits could not be clearly determined. Regarding the scale of his deficit, his NIH Stroke Scale on arrival was 8 and 25 minutes later was at 9. He did resume antiplatelet therapy with Plavix, aspirin, high-dose statin, and folic acid was given. Blood pressur es were not dropped, although he did have some lower blood pressure readings on admission systolic 91 to 122 range. He was given IV fluid bolus. Since onset his deficits have not worsened and actually are unchanged. Past Medical History: As noted, he has had cardiac catheterization with stent placement, possible at [facility] fibrillation in the past, heavy smoker, prior stroke for which he had inpatient rehabilitation i 2016. The stroke was in the distribution of the left brain and produced right-sided weakness and s ome expressive aphasia. Family History: Diabetes in sister. Social History: Daily smoker. Alcohol but no drug use. Review of Systems: The patient's family denies any recent fevers or chills, myalgias, arthralgias. He is ambulatory ind ependently prior to this repeat stroke. No dermatological issues or gastrointestinal or genitourinar y issues. Physical Examination: Vital Signs: Blood pressure 122/73, pulse 61, respirations 14-20, temperature 97.9, oxygen saturatio n 99%, weight 150 pounds, height 5 feet 5 inches, BMI 25. General: Mr. Sauceda is sitting in bed. He is in no significant distress. HEENT: Appears normocephalic, atraumatic. Sclerae anicteric. Oropharynx is pink and moist. Poor d entition. Neck: Supple. Chest: Clear. Heart: Regular rate. Extremities: Show no clubbing, cyanosis, or edema. Neurological: The patient is somewhat sleepy, but is arousable sound, interact with his d noelle and son who were in the room. They appeared to have a mild expressive aphasia and slight dif ficulty comprehending medications. Otherwise, subtle right nasolabial fold decrease . Mot or examination; 3-4/5 in the right upper and lower extremity, on the left side 5-/5. Sensation decre ased to light touch temperature in the right upper and lower extremity. Right and left side coordina tion intact but slow in the right upper and lower extremity. Reflexes brisk in the right compared to left upper and lower extremity. Gait, he ambulated with physical therapy since he is out of bed and put on. Laboratory Studies: Complete blood count with differential is essentially unremarkable. INR 1.04. Chemistries show elevated creatinine of 1.42 consistent with some renal insufficiency, otherwise elec trolytes are normal. LDL cholesterol is elevated to 152, HDL cholesterol 41. Urinalysis shows a tra ce of blood. COVID-19 test is negative. Influenza A and B negative. The MRI of his brain identifie d a 5 cm acute stroke in the left temporoparietal region. MRA of his neck showed no significant abno rmalities in the neck vessels. MRA of the brain shows irregular stenotic appearance with diminished flow in the M1 segment of the left middle cerebral artery, likely due to underlying atherosclerotic d isease. Carotid artery ultrasound shows in both carotids, but no evidence of hemodynamica lly significant stenosis. Assessment: Mr. Sauceda is a 76-year-old patient with dyslipidemia, hypertension, and chronic tobac co use along with a prior stroke and coronary artery disease, who has had a new 5 cm left temporopari etal stroke after he stopped all medications and has been smoking. He has significant right upper an d lower extremity deficits, incoordination, poor balance, poor sensory perception, and some aphasia. Plan: 1.Aggressive inpatient rehabilitation. 2.Aspirin, Plavix, folic acid, statin . 3.Permissive hypertension. We will give hydration prerenal blood pressure and . 4.May consider Lovenox 40 mg subcutaneous a day for DVT prophylaxis. 5.Speech, physical, and occupational therapy. At this stage, it is necessary to admit him to the in patient rehabilitation unit to prevent him from decline further into speech recovery after stroke. REHANA/WOO Voice ID: [id number] Report ID: [id number]
--- NOTE | 2021-12-27 22:33 | P.DS ---
Discharge Date: 12/21/21 Disposition: TRANSFER TO INPATIENT REHAB Discharge Condition: FAIR Reason for Admission: Ischemic CVA Brief History of Present Illness: 76-year-old male with history of CVA, hyperlipidemia presents the emergency department for gait disturbance, right-sided weakness. Family reports symptoms began around 1645. Code stroke was called and patient brought to the ER CT without contrast demonstrated moderate to large nonhemorrhagic subacute CVA suspected left parietal region Case was discussed with neurology given that ischemic findings are noted on CT it was determined patient would not likely benefit from TN K patient had CTA of the head and neck CT of the head revealed diminished irregular flow in left M1 segment likely related to atherosclerosis, diminished flow in the left intracranial vertebral artery likely atherosclerotic CTA of the neck with mild less than 50% narrowing in the proximal left internal carotid artery. These results were also reviewed with neurology who recommends admission here as patient not a candidate for intra-arterial intervention at this time. Hospital Course: Patient had a stroke. Patient was treated with antiplatelet therapy. Patient was also given statin therapy. At this time, patient is doing well and is stable for discharge home. Patient will go to inpatient rehab at this time. Vital Signs/Physical Exam: Temp Pulse Resp BP Pulse Ox 97.1 F 56 16 133/78 97 12/21/21 08:00 12/21/21 08:00 12/21/21 08:00 12/21/21 08:00 12/21/21 08:00 General: Alert, In no apparent distress, Oriented x3 Laboratory Data at Discharge: WBC 11.3 K/uL (4.3-10.9) H D 12/19/21 05:15 Hgb 14.6 g/dL (13.6-17.9) 12/19/21 05:15 Hct 42.2 % (39.6-49.0) 12/19/21 05:15 Plt Count 271 K/uL (152-406) 12/19/21 05:15 PT 11.4 SECONDS (9.5-12.5) 12/17/21 18:53 INR 1.04 12/17/21 18:53 APTT 29.6 SECONDS (24.3-36.9) 12/17/21 18:53 Sodium 139 mmol/L (136-145) 12/21/21 05:15 Potassium 3.9 mmol/L (3.5-5.1) 12/21/21 05:15 BUN 18 mg/dL (7-18) 12/21/21 05:15 Creatinine 1.16 mg/dL (0.55-1.3) 12/21/21 05:15 Glucose 102 mg/dL (74-106) 12/21/21 05:15 Magnesium Cancelled 12/20/21 15:15 Total Bilirubin 0.5 mg/dL (0.2-1.0) 12/21/21 05:15 AST 19 U/L (15-37) 12/21/21 05:15 ALT 16 U/L (12-78) 12/21/21 05:15 Alkaline Phosphatase 92 U/L (45-117) 12/21/21 05:15 Triglycerides 55 mg/dL (<150) 12/18/21 03:25 Cholesterol 204 mg/dL (<200) H 12/18/21 03:25 HDL Cholesterol 41 mg/dL (40-60) 12/18/21 03:25 Cholesterol/HDL Ratio 4.98 12/18/21 03:25 Home Medications: Acetaminophen [Tylenol*] 650 mg PO Q4H PRN #0 tab 12/10/16 Duloxetine [Cymbalta *] 20 mg PO DAILY #30 cap 12/10/16 Aspirin [Aspirin EC 81 MG] 81 mg PO DAILY #30 tablet. 12/12/16 Nicotine [Nicoderm*] 21 mg TD DAILY #14 patch.td24 12/19/21 Atorvastatin Calcium [Lipitor] 40 mg PO BEDTIME #30 tab 12/21/21 New Medications: Atorvastatin Calcium [Lipitor] 40 mg PO BEDTIME #30 tab Nicotine [Nicoderm*] 21 mg TD DAILY #14 patch.td24 Physician Discharge Instructions: -DC to rehab -Follow-up with PCP in 1 to 2 weeks -Follow-up with Cardiology/Neurology in 1 to 2 weeks -Please call Dr. Lang at [phone] if any questions regarding hospital stay -Please call nursing station at [phone] if any nursing or medication questions -Return to the emergency room if symptoms worsen Diet: ADA Activity: Fall precautions Followup: Alex Toro MD [ASSOCIATE-ACTIVE - CAN ADMIT] - 1-2 Weeks NONE,NONE [Primary Care Provider] - Time spent managing pt's care (in minutes): 35
== END 2021-12-21 12:30 | DRG 65 ==
LOC: ER 18:15 → ERHOLD 20:19 → 2ND 12-18 18:05
PROVIDERS: ADMIT Internal Medicine; ATTEND Internal Medicine
DX: I63.9 Cerebral infarction, unspecified (principal); G81.91 Hemiplegia, unspecified affecting right dominant side; R29.708 NIHSS score 8; R47.01 Aphasia; I10 Essential (primary) hypertension; E78.5 Hyperlipidemia, unspecified; I25.10 Atherosclerotic heart disease of native coronary artery without angina pectoris; I73.9 Peripheral vascular disease, unspecified; F17.210 Nicotine dependence, cigarettes, uncomplicated; Z95.5 Presence of coronary angioplasty implant and graft; Z86.73 Personal history of transient ischemic attack (TIA), and cerebral infarction without residual deficits; Z20.822 Contact with and (suspected) exposure to COVID-19
CPT/HCPCS: 0240U; 36415; 70450; 70496; 70498; 70544; 70549; 70553; 71045; 73706; 80048; 80053; 80061; 81003; 81015; 82947; 83735; 84443; 84484; 85025; 85610; 85730; 92610; 93005; 93306; 93880; 93925; 96361; 96374; 97110; 97112; 97161; 97165; 97530; 99285; A9577; J1650; J7040; Q9967

== ENCOUNTER 2021-12-20 16:29 | Inpatient (IN) | payer OTHER ==
--- NOTE | 2021-12-21 11:13 | R.PREADM ---
PRE-ADMISSION SCREENING FORM SCREENING DATE AND TIME 12/18/2021 16:58 (CDT) ANTICIPATED REHAB ADMISSION DATE 12/20/2021 REFERRING FACILITY [facility] REFERRAL DATE AND TIME 12/18/2021 16:58 (CDT) REFERRAL ROOM# 220 ACUTE ADMIT DATE 12/17/2021 Previous Rehabilitation(s): No. 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 Alex Toro M.D. MR# [id number] NAME ANURADHA MELENDEZ [place] ADDRESS [address] [facility] [facility] [address] [facility] [id number] DATE OF 1945 AGE 76 SSN# [id number] GENDER male MARITAL STATUS PREF. LANGUAGE (IF NON-PERSIAN) [place]uran ADMIT FROM 02 [facility] PRE-HOSPITAL LIVING SETTING 01 - Home (private home/apt. board/care, assisted living, senior care, transitional living) HOME TYPE AND DETAILS Type of home: single family house # of levels in the residence: 1 # of steps within the residence: 0 # of steps to enter the residence: 0 PRE-HOSPITAL LIVING WITH Alone FAMILY SUPPORT No PRIMARY FAMILY CONTACT NAME RONNA MELENDEZ PRIMARY FAMILY CONTACT PHONE PRIMARY FAMILY CONTACT RELATIONSHIP Son PHONE PRIMARY FAMILY CONTACT ON ADM.? no IS PRIMARY FAMILY CONTACT AUTH. REP.? no 1ST EMERGENCY CONTACT RONNA MELENDEZ 1ST CONTACT PHONE 1ST CONTACT RELATIONSHIP Son PHONE 1ST CONTACT ON ADM. no IS 1ST CONTACT AUTH. REP.? no PHONE 2ND CONTACT ON ADM.? no PATIENT EMPLOYMENT STATUS Retired (for age) PATIENT EMPLOYER No Employer PAYOR INFORMATION: 1ST PAYOR NAME Medicare 1ST PAYOR PHONE 1ST PAYOR INJURY/ILLNESS DUE TO ACCIDENT? No ANOTHER [employer] RESPONSIBLE? No PRIMARY REHAB/ACUTE DIAGNOSIS: ISCHEMIC CVA ONSET DATE 12/17/2021 REHAB IMPAIRMENT CATEGORY (SHANELL): 01 Stroke (STR) MEETS 60% rule AFFECTED EXTREMITIES: RLE, and RUE PRIMARY DIAGNOSIS-RELATED SURGERIES: N/A INTERVENTIONS: - A-Fib monitor for complications - HTN Blood pressure will be regularly assessed and medications administered as per physician recommendatio ns. Appropriate BP range needs to be maintained to ensure optimal brain healing - Bilateral Superficial Femoral Artery Occlusion Monitoring of symptoms medication management RISK FOR COMPLICATIONS: - SKIN BREAKDOWN Nursing will assess skin daily using assessment tool and will place on Skin Breakdown Precautions as Indicated per protocol - CVA pt's blood pressures have been inconsistent and require monitoring and medication management as inidi cated by physician. - WEAKNESS Nursing and therapy will help to get patient stronger - Falls Educated pt on fall prevention strategies to reduce/eliminate fall risk Patient will be evaluated for Fall Precautions and will be placed on Fall Precautions as indicated pe r protocol. - Pain Clinical staff will assess patient's pain level every shift per protocol to monitor for pain manageme nt effectiveness Educate patient on pain management strategies SUMMARY OF ACUTE HOSPITALIZATION: Pt. is a 76 yo Right-handed male. On 12/17/2021 Pt. presented to [facility] with sudden onset of right-side weakness. On 12/17/2021 he was admitted to [facility] with diagnosis ISCHEMIC CVA. His impairment category is Stroke 01 - Right Body (Left Brain) (01.2). Pre-morbidly, Pt. was independent/mod-I in Locomotion, Safety Awareness, Social Cognition, Balance, a nd Transfers Control; and he had good Sphincter Control, Self-Care, Communication, and Endurance. Currently, he has deficits of Locomotion, Social Cognition, Safety Awareness, Balance, Transfers Cont rol, Sphincter Control, Self-Care, Endurance, and Communication. Pt. is now referred to [facility] for acute in-patient rehabilitation in order to maximize patient's functional independence in activities of daily living, strength, ROM, and mobi lity. Patient has realistic goal of being discharged at assistance level 7-Ind to reside at Home with Pt s elf. PAST MEDICAL HISTORY AFIB HTN SMOKER CVA HYPERLIPIDEMIA Bilateral Superficial Femoral Artery Occlusion PAST SURGICAL HISTORY: HEART CATH STENT PLACED MEDICATION ALLERGIES: No Known Drug Allergies (NKDA) ENVIRONMENTAL ALLERGIES: - Substance Allergies None Known - Other Allergies None Known CODE STATUS: Full code WEIGHT/HEIGHT/BMI: WEIGHT 150 lbs HEIGHT 5' 5" BMI 25 DIET: - Diet Type Regular - Diet - Solid Texture Regular - Diet - Liquid Texture Regular - Tube Feed N/A SKIN DIAGRAM: on Chest; extent - small; stage - NS(Not Stageable). Treatment - . REVIEW OF SYSTEMS: - Gen Alert and awake Lying in bed No apparent distress Oriented to: person, time, and place - Vital Signs Temperature: 97.9 F SBP/DBP:122/73 Pulse: 61 Resp: 17 Vital signs stable, afebrile - CVS RRR VITAL SIGNS Temperature: 97.9 F SBP/DBP: 122/73 Pulse: 61 Resp: 17 Vital signs stable, afebrile MEDICATIONS/TREATMENT: Other- See attached MAR (Medication Administration Record). CURRENT SPHINCTER CONTROL: Pre-hospital bladder status: unspecified # of bladder accidents in the last 7 days prior to screenin Pre-hospital bowel status: unspecified # of bowel accidents in the last 7 days prior to screenin Last Bowel Movement Date: 12/18/2021 CURRENT LOCOMOTION STATUS: distance walked 2 small steps with rolling walker DETAILED CURRENT FUNCTIONAL STATUS: - Bladder accident frequency: 7-Ind - No accidents in the past 7 days - Bowel accident frequency: 7-Ind - No accidents in the past 7 days - Walking score based on distance walked: 0(N/A) score based on distance walked: 1(<=50ft) - Wheelchair score based on distance traveled: 0(N/A) QI SCORES: - Self-Care A. Eating 03-Partial/moderate assistance B. Oral hygiene 02-Substantial/maximal assistance C. Toileting hygiene 02-Substantial/maximal assistance E. Shower/bathe self 02-Substantial/maximal assistance F. Upper body dressing 03-Partial/moderate assistance G. Lower body dressing 02-Substantial/maximal assistance H. Putting on/taking off footwear 88-Not attempted due to medical condition or safety concerns - Mobility A. Roll left and right 03-Partial/moderate assistance B. Sit to lying 03-Partial/moderate assistance C. Lying to sitting on side of bed 03-Partial/moderate assistance D. Sit to stand 03-Partial/moderate assistance E. Chair/vzt-ha-lyhar transfer 03-Partial/moderate assistance F. Toilet transfer 02-Substantial/maximal assistance G. Car transfer 88-Not attempted due to medical condition or safety concerns I. Walk 10 feet 88-Not attempted due to medical condition or safety concerns J. Walk 50 feet with two turns 88-Not attempted due to medical condition or safety concerns K. Walk 150 feet 88-Not attempted due to medical condition or safety concerns L. Walking 10 feet on uneven surfaces 88-Not attempted due to medical condition or safety concerns M. 1 step (curb) 88-Not attempted due to medical condition or safety concerns N. 4 steps 88-Not attempted due to medical condition or safety concerns O. 12 steps 88-Not attempted due to medical condition or safety concerns P. Picking up object 88-Not attempted due to medical condition or safety concerns R. Wheel 50 feet with two turns 88-Not attempted due to medical condition or safety concerns S. Wheel 150 feet 88-Not attempted due to medical condition or safety concerns - Bladder and Bowel Bladder continence Bowel continence - Endurance Fair - Balance Fair - Safety Awareness Fair CURRENT FUNC. DEFICITS: Self-Care, Mobility, Endurance, Balance, and Safety Awareness CURRENT / PREVIOUS ASSISTIVE DEVICES: Rolling Walker HISTORY OF FALLS. HAS THE PATIENT HAD TWO OR MORE FALLS IN THE PAST YEAR OR ANY FALL WITH INJURY IN T HE PAST YEAR?: No PRIOR SURGERY. DID THE PATIENT HAVE MAJOR SURGERY DURING THE 100 DAYS PRIOR TO ADMISSION?: No THERAPY NOTES FROM ACUTE CARE: Attached. SPECIAL NEEDS: - Safety Concerns Skin breakdown precautions needed due to skin breakdown risk PRECAUTIONS: - Weight Bearing Precaution WBAT right LE PATIENT NEEDS ACTIVE AND ONGOING THERAPEUTIC INTERVENTION OF MULTIPLE THERAPY DISCIPLINES, INCLUDING: - Dietary and Nutrition Adequate Nutrition. Nutritional Education. Nutritional Supplements. Evaluate and Treat. - Occupational Therapy Cognitive Retraining. Patient needs Occupational Therapy for a daily minimum of 1.5 hours at least 5 out of 7 days, to improve Activities of Daily Living, including: Eating, Grooming, Bathing, Dressing, Toileting, Toilet Transfers, Community Reintegration, Higher functional activities, Adaptive Equipme nt, Splinting, Household Tasks, and Other activities as determined. Visual Perceptual Training. ADL T raining. Patient/Family Education. Safety Awareness. Evaluate and Treat. Household Tasks. - Speech Therapy Cognitive Training. Expressive Language Skills. Memory Strategies. Patient needs Speech Therapy for a daily minimum of 1.5 hours at least 5 out of 7 days, to improve: Swallowing, Cognition, Language Ski lls, and Compensatory Strategies. Receptive Language Skills. Speech Intelligibility Training. Evaluat e and Treat. - Physical Therapy Patient needs Physical Therapy for a daily minimum of 1.5 hours at least 5 out of 7 days, to improve: Mobility, Strengthening, Transfers, Stretching, ROM, Endurance, Ability to manage stairs, Gait, and Balance. Balance Training. Evaluate and Treat. Gait Training. Patient/Family Education. Safety Awaren ess. Transfer Training. LE Strengthening. PATIENT NEEDS CLOSE MEDICAL SUPERVISION BY A REHABILITATION PHYSICIAN FOR: Coordination of Treatment Team Medical and Co-Morbidity Management DVT Management Pain Management PATIENT REQUIRES 24X7 REHAB NURSING FOR MEDICAL AND FUNCTIONAL MGT. OF THE FOLLOWING DEFICITS: Patient requires 24x7 Rehabilitation Nursing for: Pain Issues, Identifying and preventing risk factor s, Monitoring and reporting current medical conditions, Assisting with ambulation and transfer, Blanca ting with all ADL-s, Teaching patients about disease process and medications, Family teaching, Provid ing safe environment, Bowel and Bladder Issues, Skin Integrity, and Medication Management PATIENT REQUIRES INTENSIVE, COORDINATED INTERDISCIPLINARY APPROACH TO REHAB: Arranging Home Equipment/Services Discharge Planning Family Intervention/Training Patient needs Dietary and Nutrition Services for: Adequate Nutrition, Nutritional Supplements, and Nu tritional Education Patient needs Events Administrative Assistant and/or Case Management for: Discharge Planning, Arranging Home Equipmen t or Services, and Family Interventions Events Administrative Assistant/Case Management PATIENT REHAB POTENTIAL: Ty MELENDEZ is able and expected to receive 3 hours of individualized therapy daily on at least 5 of every 7 days Ty MELENDEZ's prognosis for significant practical improvement within a reasonable period of time appe ars Good Expected level of measurable improvement will be of a practical value to Ty MELENDEZ's functional cap acity or adaptations to impairments Has a viable Discharge Plan Medically appropriate; condition is sufficiently stable to participate in intensive rehab program DISCHARGE PLAN: - Estimated Length of Stay (days) 17. - Consensus on plan Discharge plan has been discussed with primary caregiver. Patient/Family is in agreement with the emmanuel n. Primary caregiver is in agreement with the plan. - Patient/Family Goals Return home independently. - Planned Living Setting Upon Discharge Home, to live alone. Transitional Living. Primary caregiver: Pt self. RECOMMENDED CARE LEVEL: IRF RECOMMENDATION DETAILS: Recommended Admission to Comprehensive Rehabilitation Program to Increase Functional [facility] SCREENER'S COMPLETENESS CONFIRMATION: - Screening Confirmation The patient data collection on this preadmission screening form is finished PHYSICIANS REVIEW AND ADMISSION DETERMINATION Admit - Based on my review of the Pre-Admission Screening results, in my medical judgment and experie nce, I concur with the findings and recommend admission to [facility], as this patient requires an IRF level of care. SIGNATURE PANEL: Osha Inspector - [electronically] signed by Allyson Miller on 12/18/2021 at 17:55 (CDT) Osha Inspector - [electronically] signed by Baltazar Bowman PT on 12/21/2021 at 11:08 (CDT) Physician Reviewer - [electronically] signed by Dr. Alex Toro M.D. on 12/21/2021 at 11:13 (CDT )
--- OUTSIDE RECORDS SUMMARY | 2021-12-21 13:01 | XMS REPORT | Continuity of Care Document ---
:1945 Author Organization [facility] Address Formerly [facility], [id number] Myles Dsouza [address] [place] [id number] Care Team Providers Name Role Phone Amanda [...] PATIEN TS. CBC W/PLT COUNT & AUTO [id number] 06:48:00 Test Item Value Reference Range Interpretation [...] 0.00-0.20 (test code = 417) 0.00BASIC METABOLIC [id number] 06:15:00 Test Item Value Reference Range Interpretation [...] PATIEN TS. CBC W/PLT COUNT & AUTO [id number] 08:51:00 Test Item Value Reference Range Interpretation [...] 0.00-0.20 (test code = 417) 0.00BASIC METABOLIC [id number] 06:46:00 Test Item Value Reference Range Interpretation [...] PATIEN TS. CBC W/PLT COUNT & AUTO [id number] 12:42:00 Test Item Value Reference Range Interpretation [...] (BEAKER) (test code = 1351) BASIC METABOLIC [id number] 05:31:00 Test Item Value Reference Range Interpretation [...] APPLICABLE FOR DIALYSIS PATIEN TS. BASIC METABOLIC [id number] 04:28:00 Test Item Value Reference Range Interpretation [...] PATIEN TS. CBC W/PLT COUNT & AUTO [id number] 04:10:00 Test Item Value Reference Range Interpretation [...] 0.00-0.20 (test code = 417) 0.00BASIC METABOLIC [id number] 04:18:00 Test Item Value Reference Range Interpretation [...] PATIEN TS. CBC W/PLT COUNT & AUTO [id number] 04:08:00 Test Item Value Reference Range Interpretation [...] = 417) 0.00CBC W/PLT COUNT & AUTO [id number] 06:11:00 Test Item Value Reference Range Interpretation [...] K/ L 0.00-0.20 (test code = 417) 0.00[facility] METABOLIC [id number] 06:07:00 Test Item Value Reference Range Interpretation [...] S NOT APPLICABLE FOR DIALYSIS PATIEN TS. [id number] 10:58:00 Test Item Value Reference Range Interpretation Comments RPR SCREEN (BEAKER) (test code = Nonreactive Nonreactive 420) HEMOGLOBIN [id number] 10:40:00 Test Item Value Reference Range Interpretation Comments HEMOGLOBIN A1C 5.4 % 4.3-6.1 POSSIBLE HEMO GLOBIN C (BEAKER) (test code = VARIAN T NOTED IN 368) HEMOGLOBIN A1C CHROMATOGRAPH. SUGGEST HEMOGLOBIN ELEC TROPHORESIS IF CLINICALLY I NDICATED. CBC W/PLT COUNT & AUTO [id number] 07:52:00 Test Item Value Reference Range Interpretation [...] 0.00-0.20 (test code = 417) 0.00URINALYSIS W/ [id number] 07:26:00 Test Item Value Reference Range Interpretation [...] SOURCE(BEAKER) (test code Urine, Clean Catch = 1177) TSH/FREE T4 IF [id number] 06:28:00 Test Item Value Reference Range Interpretation Comments THYROID STIMULATING HORMONE 0.92 uIU/mL 0.35-4.94 (BEAKER) (test code = 772) VITAMIN B12 AND [id number] 06:28:00 Test Item Value Reference Range Interpretation Comments VITAMIN B12 (BEAKER) (test code = 424 pg/mL 213-816 774) FOLATE (BEAKER) (test code = 362) 6.3 ng/mL >=7.0 L Effective 07/09/2014: Folate Reference Range ChangeNew: >=7.0 Previous: >=5.4BASIC METABOLIC [id number] 05:44:00 Test Item Value Reference Range Interpretation [...] DATA TO CALCULA TE ESTIMATED GFR. FastingLIPID [id number] 05:39:00 Test Item Value Reference Range Interpretation [...] 130-159 High 160-189 Very High >=190 FastingTROPONIN [id number] 05:25:00 Test Item Value Reference Range Interpretation [...] and persistent tachyarrhythmia.FastingCBC W/PLT COUNT & AUTO [id number] 04:49:00 Test Item Value Reference Range Interpretation [...] K/ L 0.00-0.20 (test code = 417) [id number] 00:59:00 Test Item Value Reference Range Interpretation Comments PHOSPHORUS (BEAKER) (test code = 3.1 mg/dL 2.3-4.7 604) [id number] 00:59:00 Test Item Value Reference Range Interpretation Comments MAGNESIUM (BEAKER) (test code = 2.0 mg/dL 1.6-2.6 627) CREATINE KINASE (CK), TOTAL AND [id number] 22:25:00 Test Item Value Reference Range Interpretation Comments CREATINE KINASE TOTAL (BEAKER) 186 U/L 29-200 (test code = 380) CREATINE KINASE-MB (BEAKER) (test 1.9 ng/mL 0.0-6.6 code = 750) CREATINE KINASE-MB INDEX (BEAKER) 1.0 % (test code = 395) Effective 07/09/2014: CK-MB Reference Range ChangeNew: 0.0-6.6 Previous: 0.0-4.9CK-MB Reference Range:<6.7 Normal6.7-10.0 Borderline>10.0 AbnormalTROPONIN [id number] 22:25:00 Test Item Value Reference Range Interpretation [...] 0-100 (test code = 700) BASIC METABOLIC [id number] 22:19:00 Test Item Value Reference Range Interpretation [...] DATA TO CALCULA TE ESTIMATED GFR. POCT-GLUCOSE [id number] 22:17:00 Test Item Value Reference Range Interpretation Comments POC-GLUCOSE METER 103 mg/dL 70-110 TESTED AT [facility] [address] ([facility]) (test code = [place] 1538) [address] CBC W/PLT COUNT & AUTO [id number] 22:12:00 Test Item Value Reference Range Interpretation [...] L 0.00-0.20 (test code = 417) 0.00PROTHROMBIN [id number] 22:07:00 Test Item Value Reference Range Interpretation [...]
[2021-12-21] MEDS ORDERED: ACETAMINOPHEN 325 MG TABLET PO PRN (13:46)
[2021-12-21] MEDS ORDERED: BISACODYL 10 MG RECTAL SUPP PR PRN (13:49)
[2021-12-21] MEDS ORDERED: MELATONIN 3 MG TABLET PO PRN (13:50)
[2021-12-21] MEDS: ATORVASTATIN 40 MG TAB PO SCH (19:10)
[2021-12-21] MEDS: APIXABAN 5 MG TABLET PO SCH (19:11)
[2021-12-21] MEDS: DOCUSATE NA/SENNA CONC 1 TAB PO PRN (19:11)
[2021-12-21] MEDS: GABAPENTIN 100 MG CAP PO SCH (19:11)
--- NOTE | 2021-12-21 19:28 | R.HP ---
HISTORY AND PHYSICAL FACILITY: [facility] ENCOUNTER DATE AND TIME: 12/21/2021 19:19 (CDT) MR#: [id number] NAME ANURADHA MELENDEZ ADDRESS: [address] CITY: [place] [address] PHONE: DATE OF : 1945 AGE: 76 SSN# [id number] GENDER: Male MARITAL STATUS PRE-HOSPITAL LIVING SETTING 01 - Home (private home/apt. board/care, assisted living, alf, transitional living) PRE-HOSPITAL LIVING WITH Alone ENCOUNTER PHYSICIAN: Dr. Alex Toro M.D. REFERRING DOCTOR: MIRA ORTIZ MD DATE OF ADMISSION: 12/21/2021 12:20 (CDT) REFERRING FACILITY [facility]3] HOME TYPE AND DETAILS: Type of home: single family house # of levels in the residence: 1 # of steps within the residence: 0 # of steps to enter the residence: 0 ONSET DATE: 12/17/2021 PRIMARY DIAGNOSIS-RELATED SURGERIES: N/A HISTORY OF PRESENT ILLNESS (HPI): Pt. is a 76 yo Right-handed male. On 12/17/2021 Pt. presented to [facility]3] with sudden onset of right-side weakness. On 12/17/2021 he was admitted to [facility]3] with diagnosis ISCHEMIC CVA. His impairment category is Stroke 01 - Right Body (Left Brain) (01.2). Pre-morbidly, Pt. was independent/mod-I in Locomotion, Safety Awareness, Social Cognition, Balance, a nd Transfers Control; and he had good Sphincter Control, Self-Care, Communication, and Endurance. Currently, he has deficits of Locomotion, Social Cognition, Safety Awareness, Balance, Transfers Cont rol, Sphincter Control, Self-Care, Endurance, and Communication. Pt. is now referred to [facility] for acute in-patient rehabilitation in order to maximize patient's functional independence in activities of daily living, strength, ROM, and mobi lity. Patient has realistic goal of being discharged at assistance level 7-Ind to reside at Home with Pt s elf. MEDICATION ALLERGIES: No Known Drug Allergies (NKDA) ENVIRONMENTAL ALLERGIES: - Substance Allergies None Known - Other Allergies None Known PAST MEDICAL HISTORY: AFIB HTN SMOKER CVA HYPERLIPIDEMIA Bilateral Superficial Femoral Artery Occlusion PAST SURGICAL HISTORY: HEART CATH STENT PLACED SOCIAL HISTORY: - Home Living Alone REVIEW OF SYSTEMS: - Gen No Chills Fatigue No Fever - Eyes No Double Vision No itchiness - ENMT No Difficulty Swallowing - CVS No Chest Discomfort No Chest Pain Fatigue No Weight Gain - Resp No Cough No Shortness of Breath - GI Continent No Abdominal Pain No Constipation No Diarrhea - Continent No Kidney Pain No Painful Urination No Urinary Urgency - MSK No Joint Pain Muscle Cramps Stiffness - Skin No Itching No Rash No Suspicious Lesions - Neuro Coordination Difficulty No Difficulty with Concentration No Memory Loss No Seizures Weakness - Psych No Anxiety No Depression No HIV Exposure No Persistent Infections No Seasonal Allergies - Endo No Cold/Heat Intolerance No Excessive Hunger No Excessive Thirst No Excessive Urination PHYSICAL EXAM - Gen Alert and awake Lying in bed No apparent distress Oriented to: person, time, and place - Skin No skin breakdown. No abnormalities - Eyes No abnormalities - ENMT No abnormalities - Neck No abnormalities - CVS RRR - Chest mild decrease in breath sounds - Resp Course lungs bilaterally - Abd Soft - GI + bowel sounds Deferred - No abnormalities - Ext No significant edema - MSK 4+/5 weakness in right upper and lower extremities - Neuro 4+/5 weakness in right upper and lower extremities and right sided numbness. - Psych No abnormalities VITAL SIGNS Temperature: 97.8 F SBP/DBP: 143/79 Pulse: 65 Resp: 16 NURSING: - Shower allowing shower - Bladder care per protocol - Skin care per protocol PRECAUTIONS: - Weight Bearing Precaution WBAT right LE ACTIVITIES OOB only with supervision QI SCORES: - Self-Care A. Eating 03-Partial/moderate assistance B. Oral hygiene 02-Substantial/maximal assistance C. Toileting hygiene 02-Substantial/maximal assistance E. Shower/bathe self 02-Substantial/maximal assistance F. Upper body dressing 03-Partial/moderate assistance G. Lower body dressing 02-Substantial/maximal assistance H. Putting on/taking off footwear 88-Not attempted due to medical condition or safety concerns - Mobility A. Roll left and right 03-Partial/moderate assistance B. Sit to lying 03-Partial/moderate assistance C. Lying to sitting on side of bed 03-Partial/moderate assistance D. Sit to stand 03-Partial/moderate assistance E. Chair/yco-ca-aqwug transfer 03-Partial/moderate assistance F. Toilet transfer 02-Substantial/maximal assistance G. Car transfer 88-Not attempted due to medical condition or safety concerns I. Walk 10 feet 88-Not attempted due to medical condition or safety concerns J. Walk 50 feet with two turns 88-Not attempted due to medical condition or safety concerns K. Walk 150 feet 88-Not attempted due to medical condition or safety concerns L. Walking 10 feet on uneven surfaces 88-Not attempted due to medical condition or safety concerns M. 1 step (curb) 88-Not attempted due to medical condition or safety concerns N. 4 steps 88-Not attempted due to medical condition or safety concerns O. 12 steps 88-Not attempted due to medical condition or safety concerns P. Picking up object 88-Not attempted due to medical condition or safety concerns R. Wheel 50 feet with two turns 88-Not attempted due to medical condition or safety concerns S. Wheel 150 feet 88-Not attempted due to medical condition or safety concerns - Bladder and Bowel Bladder continence Bowel continence - Endurance Fair - Balance Fair - Safety Awareness Fair CURRENT FUNC. DEFICITS: Self-Care, Mobility, Endurance, Balance, and Safety Awareness MEDICATIONS: - Other See attached MAR (Medication Administration Record) ASSESSMENT: Pt. is a 76 yo Right-handed male.On 12/17/2021 Pt. presented to [facility]3] with sudden o nset of right-side weakness.On 12/17/2021 he was admitted to [facility]3] with diagnosis I SCHEMIC CVA.His impairment category is Stroke 01 - Right Body (Left Brain) (01.2).Pre-morbidly, Pt. was independent/mod-I in Locomotion, Safety Awareness, Social Cognition, Balance, and Transfers Contr ol; and he had good Sphincter Control, Self-Care, Communication, and Endurance.Currently, he has defi cits of Locomotion, Social Cognition, Safety Awareness, Balance, Transfers Control, Sphincter Control , Self-Care, Endurance, and Communication.Pt. is now referred to [facility] fo r acute in-patient rehabilitation in order to maximize patient's functional independence in activitie s of daily living, strength, ROM, and mobility.- Rehab Goal Patient has realistic goal of being discharged at assistance level 7-Ind to reside at Home with Pt s elf. for Dementia, TBI, Stroke, or others - Physical Therapy Gait dysfunction - to improve, our physical therapists will perform initial evaluation of pt's status upon admission and devise an individualized program for Gait Training, and Wheel Chair mobility Inability to transfer - to improve, our physical therapists will perform initial evaluation of pt's s tatus upon admission and devise an individualized program for Bed mobility Need for home safety evaluation - to improve, our physical therapists will perform initial evaluation of pt's status upon admission and devise an individualized program for Home Evaluation Need in caregiver upon discharge - to improve, our physical therapists will perform initial evaluatio n of pt's status upon admission and devise an individualized program for Caregiver Training New precaution - to improve, our physical therapists will perform initial evaluation of pt's status u isela admission and devise an individualized program for Patient precaution education Edema - to improve, our physical therapists will perform initial evaluation of pt's status upon admi ssion and devise an individualized program for Elevation Training, and Lymphedema Therapy Poor balance - to improve, our physical therapists will perform initial evaluation of pt's status upo n admission and devise an individualized program for Balance Training Poor endurance - to improve, our physical therapists will perform initial evaluation of pt's status u isela admission and devise an individualized program for Endurance Training Weakness - to improve, our physical therapists will perform initial evaluation of pt's status upon ad mission and devise an individualized program for Aquatic Therapy, Neuromuscular Reeducation, and Stre ngthening Achieving independence - to improve, our physical therapists will perform initial evaluation of pt's status upon admission and devise an individualized program for Community Reintegration Activities - Occupational Therapy ADL deficits - to improve, our occupation therapists will perform initial evaluation of pt's status u isela admission and devise an individualized program for Bathing, Bed mobility, Community Reintegration , Cooking, Dressing, Eating, Fine Motor Skills, Grooming, Homemaking, Kitchen Mobility, Laundry, Nafisa ent Education, Safety Awareness, Splinting - Positioning, Transfers(Toilet, Tub, Shower), and Wheel C hair Management Cognitive deficits - to improve, our occupation therapists will perform initial evaluation of pt's st atus upon admission and devise an individualized program for Cognition - orientation Need for neonatal intensive care nurse - to improve, our occupation therapists will perform initial evaluation of pt's s tatus upon admission and devise an individualized program for Caregiver Training Weakness - to improve, our occupation therapists will perform initial evaluation of pt's status upon admission and devise an individualized program for Aquatic Therapy, Balance, Endurance, UE ROM, and U E strengthening MEDICAL PLAN: - Diet Type Start Regular - Diet - Liquid Texture Start Regular - Tube Feed Start N/A - Bladder care per protocol - Weight Bearing Precaution WBAT right LE - Skin care per protocol - Other See attached MAR (Medication Administration Record) - Diet - Solid Texture Regular - Shower shower DISCHARGE PLAN: - Estimated Length of Stay (days) 17. - Consensus on plan Discharge plan has been discussed with primary caregiver. Patient/Family is in agreement with the emmanuel n. Primary caregiver is in agreement with the plan. - Patient/Family Goals Return home independently. - Planned Living Setting Upon Discharge Home, to live alone. Transitional Living. Primary caregiver: Pt self. SIGNATURE PANEL: (CDT)
--- NOTE | 2021-12-21 19:28 | PAPE ---
POST ADMISSION PHYSICIAN EVALUATION PATIENT: [facility] MR# [id number] REFERRING DOCTOR MIRA ORTIZ MD EVALUATION DATE AND TIME 12/21/2021 19:27 (CDT) NAME ANURADHA MELENDEZ DATE OF 1945 AGE 76 PHONE N# [id number] GENDER male EVALUATING PHYSICIAN Dr. Alex Toro M.D. ADMISSION DIAGNOSIS: ISCHEMIC CVA ONSET DATE 12/17/2021 POST-ADMISSION FUNCTIONAL/MEDICAL STATUS: - Bladder Same accident frequency: 7-Ind - No accidents in the past 7 days - Bowel Same accident frequency: 7-Ind - No accidents in the past 7 days - Walking Same score based on distance walked: 0(N/A) Same score based on distance walked: 1(<=50ft) - Wheelchair Same score based on distance traveled: 0(N/A) STATUS CHANGE EVALUATION: No change in Functional or Medical Status is identified compared with Pre-Admission screening. PATIENT NEEDS CLOSE MEDICAL SUPERVISION BY A REHABILITATION PHYSICIAN FOR: Coordination of Treatment Team Medical and Co-Morbidity Management DVT Management Pain Management PATIENT REQUIRES 24X7 REHAB NURSING FOR MEDICAL AND FUNCTIONAL MGT. OF THE FOLLOWING DEFICITS: Patient requires 24x7 Rehabilitation Nursing for: Pain Issues, Identifying and preventing risk factor s, Monitoring and reporting current medical conditions, Assisting with ambulation and transfer, Blanca ting with all ADL-s, Teaching patients about disease process and medications, Family teaching, Provid ing safe environment, Bowel and Bladder Issues, Skin Integrity, and Medication Management PATIENT REQUIRES INTENSIVE, COORDINATED INTERDISCIPLINARY APPROACH TO REHAB: Arranging Home Equipment/Services Discharge Planning Family Intervention/Training Patient needs Dietary and Nutrition Services for: Adequate Nutrition, Nutritional Supplements, and Nu tritional Education Patient needs Propulsion Generator Repairer and/or Case Management for: Discharge Planning, Arranging Home Equipmen t or Services, and Family Interventions Propulsion Generator Repairer/Case Management LIST OF IDENTIFIED AND POTENTIAL PROBLEMS: Alteration in leisure activities Bladder, Incontinence Bowel, Incontinence Infection, Actual or Potential Mobility Impaired Pain, Alteration in Comfort Self Care Deficit Skin Integrity, Actual or Potential Urinary Tract Infection (UTI), Actual or Potential RISK FOR COMPLICATIONS - SKIN BREAKDOWN Nursing will assess skin daily using assessment tool and will place on Skin Breakdown Precautions as Indicated per protocol. - CVA pt's blood pressures have been inconsistent and require monitoring and medication management as inidi cated by physician. - WEAKNESS Nursing and therapy will help to get patient stronger. - Falls Educated pt on fall prevention strategies to reduce/eliminate fall risk. Patient will be evaluated fo r Fall Precautions and will be placed on Fall Precautions as indicated per protocol. - Pain Clinical staff will assess patient's pain level every shift per protocol to monitor for pain manageme nt effectiveness. Educate patient on pain management strategies. INTERVENTIONS - A-Fib monitor for complications. - HTN Blood pressure will be regularly assessed and medications administered as per physician recommendatio ns. Appropriate BP range needs to be maintained to ensure optimal brain healing. - Bilateral Superficial Femoral Artery Occlusion Monitoring of symptoms medication management. PATIENT COULD BE AT RISK FOR COMPLICATIONS FROM ADVERSE MEDICAL CONDITIONS DUE TO HIS/HER COMORBIDITI ES AND THE RIGORS OF THE INTENSIVE REHABILLITATION PROGRAM. METHODS OR INTERVENTIONS TO AVOID COMPLIC ATIONS INCLUDE: - Deep Vein Thrombosis (DVT) Prophylaxis therapy for prevention . Sequential Compression Device (SCD). TE D Hose. - Bleeding Stroke patients assessed for lethargy or change in status. - Infection Clinical staff to assess and manage the signs and symptoms of infection including fever, redness, war mth, etc. - Urinary Tract Infection - Aspiration Clinical staff will assess and manage coughing, drooling, congestion. - Falls Patient will be evaluated for Fall Precautions and will be placed on Fall Precautions as indicated pe r protocol. - Skin Breakdown Nursing will assess skin daily using assessment tool and will place on Skin Breakdown Precautions as indicated per protocol. - Pain Clinical staff may employ non-medication methods such as massage, distraction, decrease stimulus, etc . as needed. Clinical staff will assess patient's pain level every shift per protocol to assess and e nsure pain management effectiveness. Medications will be given and the pain level re-assessed. PRELIMINARY PLAN OF CARE: - Physical Therapy Patient needs Physical Therapy for a daily minimum of 1.5 hours at least 5 out of 7 days, to improve: Mobility, Strengthening, Transfers, Stretching, ROM, Endurance, Ability to manage stairs, Gait, and Balance. - Speech Therapy Patient needs Speech Therapy for a daily minimum of 0.5 hours at least 5 out of 7 days, to improve: S wallowing, Cognition, Language Skills, and Compensatory Strategies. - Rehabilitation Nursing Patient requires 24x7 Rehabilitation Nursing for: Pain Issues, Identifying and preventing risk factor s, Monitoring and reporting current medical conditions, Assisting with ambulation and transfer, Blanca ting with all ADL-s, Teaching patients about disease process and medications, Family teaching, Provid ing safe environment, Bowel and Bladder Issues, Skin Integrity, and Medication Management. Patient needs Propulsion Generator Repairer and/or Case Management for: Discharge Planning, Arranging Home Equipmen t or Services, and Family Interventions. - Dietary and Nutrition Services Patient needs Dietary and Nutrition Services for: Adequate Nutrition, Nutritional Supplements, and Nu tritional Education. - Occupational Therapy Patient needs Occupational Therapy for a daily minimum of 1.5 hours at least 5 out of 7 days, to impr ove Activities of Daily Living, including: Eating, Grooming, Bathing, Dressing, Toileting, Toilet Tra nsfers, Community Reintegration, Higher functional activities, Adaptive Equipment, Splinting, Househo ld Tasks, and Other activities as determined. QI SCORES: - Self-Care A. Eating 03-Partial/moderate assistance B. Oral hygiene 02-Substantial/maximal assistance C. Toileting hygiene 02-Substantial/maximal assistance E. Shower/bathe self 02-Substantial/maximal assistance F. Upper body dressing 03-Partial/moderate assistance G. Lower body dressing 02-Substantial/maximal assistance H. Putting on/taking off footwear 88-Not attempted due to medical condition or safety concerns - Mobility A. Roll left and right 03-Partial/moderate assistance B. Sit to lying 03-Partial/moderate assistance C. Lying to sitting on side of bed 03-Partial/moderate assistance D. Sit to stand 03-Partial/moderate assistance E. Chair/uns-ji-qxxud transfer 03-Partial/moderate assistance F. Toilet transfer 02-Substantial/maximal assistance G. Car transfer 88-Not attempted due to medical condition or safety concerns I. Walk 10 feet 88-Not attempted due to medical condition or safety concerns J. Walk 50 feet with two turns 88-Not attempted due to medical condition or safety concerns K. Walk 150 feet 88-Not attempted due to medical condition or safety concerns L. Walking 10 feet on uneven surfaces 88-Not attempted due to medical condition or safety concerns M. 1 step (curb) 88-Not attempted due to medical condition or safety concerns N. 4 steps 88-Not attempted due to medical condition or safety concerns O. 12 steps 88-Not attempted due to medical condition or safety concerns P. Picking up object 88-Not attempted due to medical condition or safety concerns R. Wheel 50 feet with two turns 88-Not attempted due to medical condition or safety concerns S. Wheel 150 feet 88-Not attempted due to medical condition or safety concerns - Bladder and Bowel Bladder continence Bowel continence - Endurance Fair - Balance Fair - Safety Awareness Fair POTENTIAL FUNCTIONAL GOALS FOR PATIENT TO ACHIEVE BY DISCHARGE: - Safety Precaution Patient will remain free from falls or injury at time of discharge. - Bed Mobility Patient will perform bed mobility at 4-Regina level of assistance. - Transfers Patient will complete transfers from bed to chair at 4-Regina level of assistance. - Mobility Patient will ambulate 150 ft with 4-Regina level of assistance with RW. PATIENT REHAB POTENTIAL Ty MELENDEZ is able and expected to receive 3 hours of individualized therapy daily on at least 5 of every 7 days Ty JOHNSs prognosis for significant practical improvement within a reasonable period of time appe ars Good Expected level of measurable improvement will be of a practical value to Ty MELENDEZ's functional cap acity or adaptations to impairments Has a viable Discharge Plan Medically appropriate; condition is sufficiently stable to participate in intensive rehab program DISCHARGE PLAN: - Estimated Length of Stay (days) 17. - Consensus on plan Discharge plan has been discussed with primary caregiver. Patient/Family is in agreement with the emmanuel n. Primary caregiver is in agreement with the plan. - Patient/Family Goals Return home independently. - Planned Living Setting Upon Discharge Home, to live alone. Transitional Living. Primary caregiver: Pt self. CONCLUSION ON REHABILITATION NECESSITY: I have evaluated patient's pre-admission functional status and, comparing it to the patient's post-ad mission functional status now, I conclude that the pre-admission assessment was accurate. Patient's c ondition on admission supports the medical necessity of admission to IRF. It is safe to proceed with patient's therapy program. SIGNATURE PANEL: (CDT)
--- NOTE | 2021-12-21 20:27 | RAD REPORT ---
EXAM DESCRIPTION: RAD - Chest Single View - 12/21/2021 8:06 pm CLINICAL HISTORY: sob COMPARISON: Portable 12/17/2021 TECHNIQUE: AP portable chest image was obtained 12/21/2021 8:06 pm . FINDINGS: Mild scattered fibrotic changes are present. Lungs are low volume which accentuates the in terstitial pattern. No significant failure or volume overload. Loop recorder overlies the lower left chest. Heart and vasculature are normal. No measurable pleural effusion and no pneumothorax. No acute bony abnormality seen. No acute aortic findings suspected. IMPRESSION: No acute cardiopulmonary process. No significant change from comparison study.
[2021-12-21] MEDS: ALBUTEROL 2.5 MG/3 ML NEB SOL NEB PRN (21:00)
[2021-12-21 21:46] LABS: Urine Appearance Clear (Clear); Urine Bilirubin Negative (Negative); Urine Blood Trace-lysed (Negative); Urine Color Yellow (Yellow); Urine Glucose Negative (Negative); Urine Protein Negative (Negative); Urine pH 5.5 (5.0-7.0)
[2021-12-21 21:54] LABS: Urine Bacteria <20 /HPF (NONE SEEN)
[2021-12-22 05:31] LABS: Absolute Lymphocytes (CBC) 1.1 K/uL (0.7-4.9); Hematocrit 41.2 % (39.6-49.0); Lymphocytes % 12.4 % (15.3-44.8); MPV 7.1 fL (7.6-11.3); RBC Red Blood Cell Count 4.73 M/uL (4.33-5.43)
[2021-12-22 05:52] LABS: Albumin 2.8 g/dL (3.4-5.0); Potassium 4.2 mmol/L (3.5-5.1); Prealbumin 12.5 mg/dL (20-40)
[2021-12-22] MEDS: NICOTINE 21 MG/PAT TD SCH (08:04)
[2021-12-22] MEDS: DULOXETINE 20 MG CAP PO SCH (08:05)
[2021-12-22] MEDS: APIXABAN 5 MG TABLET PO SCH ×2 (08:05→20:10)
[2021-12-22] MEDS: GABAPENTIN 100 MG CAP PO SCH ×2 (08:05→20:10)
[2021-12-22] MEDS: ASPIRIN EC 81 MG TAB PO SCH (08:05)
[2021-12-22] MEDS: MAGNES/ALUMIN/SIMET 30ML UCUP PO PRN (15:36)
--- NOTE | 2021-12-22 18:26 | R.PN ---
PROGRESS NOTES ENCOUNTER DATE AND TIME: 12/22/2021 18:19 (CDT) NAME ANURADHA MELENDEZ DATE OF : 1945 DATE OF ADMISSION: 12/21/2021 12:20 (CDT) ISCHEMIC CVACHIEF COMPLAINT: Left temporoparietal stroke, right sided weakness and aphasia SUBJECTIVE: Pt denied any depression. Pt denied any Shortness of Breath. CBC with differential is normal. Prealbumin 12.5, Creatinine 1.32. Wheelchair mobility 25' with max assistance. Ambulated 25' with moderate assistance using a walker. VITAL SIGNS Temperature: 97.8 F SBP/DBP: 143/79 Pulse: 65 Resp: 16 MEDICATION ALLERGIES: No Known Drug Allergies (NKDA) ENVIRONMENTAL ALLERGIES: - Substance Allergies None Known - Other Allergies None Known NURSING: - Shower allowing shower - Bladder care per protocol - Skin care per protocol PRECAUTIONS: - Weight Bearing Precaution WBAT right LE ACTIVITIES OOB only with supervision THERAPIES: - Dietary and Nutrition Adequate Nutrition. Nutritional Education. Nutritional Supplements. Evaluate and Treat. - Occupational Therapy Cognitive Retraining. Patient needs Occupational Therapy for a daily minimum of 1.5 hours at least 5 out of 7 days, to improve Activities of Daily Living, including: Eating, Grooming, Bathing, Dressing, Toileting, Toilet Transfers, Community Reintegration, Higher functional activities, Adaptive Equipme nt, Splinting, Household Tasks, and Other activities as determined. Visual Perceptual Training. ADL T raining. Patient/Family Education. Safety Awareness. Evaluate and Treat. Household Tasks. - Speech Therapy Cognitive Training. Expressive Language Skills. Memory Strategies. Patient needs Speech Therapy for a daily minimum of 1.5 hours at least 5 out of 7 days, to improve: Swallowing, Cognition, Language Ski lls, and Compensatory Strategies. Receptive Language Skills. Speech Intelligibility Training. Evaluat e and Treat. - Physical Therapy Patient needs Physical Therapy for a daily minimum of 1.5 hours at least 5 out of 7 days, to improve: Mobility, Strengthening, Transfers, Stretching, ROM, Endurance, Ability to manage stairs, Gait, and Balance. Balance Training. Evaluate and Treat. Gait Training. Patient/Family Education. Safety Awaren ess. Transfer Training. LE Strengthening. PHYSICAL EXAM - Gen Alert and awake Lying in bed No apparent distress Oriented to: person, time, and place - Skin No skin breakdown. No abnormalities - Eyes No abnormalities - ENMT No abnormalities - Neck No abnormalities - CVS RRR - Chest mild decrease in breath sounds - Resp Course lungs bilaterally - Abd Soft - GI + bowel sounds Deferred - No abnormalities - Ext No significant edema - MSK 4+/5 weakness in right upper and lower extremities - Neuro 4+/5 weakness in right upper and lower extremities and right sided numbness. - Psych No abnormalities ASSESSMENT: Pt. is a 76 yo Right-handed male.On 12/17/2021 Pt. presented to [facility] with sudden o nset of right-side weakness.On 12/17/2021 he was admitted to [facility] with diagnosis I SCHEMIC CVA.His impairment category is Stroke 01 - Right Body (Left Brain) (01.2).Pre-morbidly, Pt. was independent/mod-I in Locomotion, Safety Awareness, Social Cognition, Balance, and Transfers Contr ol; and he had good Sphincter Control, Self-Care, Communication, and Endurance.Currently, he has defi cits of Locomotion, Social Cognition, Safety Awareness, Balance, Transfers Control, Sphincter Control , Self-Care, Endurance, and Communication.Pt. is now referred to [facility] fo r acute in-patient rehabilitation in order to maximize patient's functional independence in activitie s of daily living, strength, ROM, and mobility.- Rehab Goal Patient has realistic goal of being discharged at assistance level 7-Ind to reside at Home with Pt s elf. MDM/PLAN: - Physical Therapy Gait dysfunction - to improve, our physical therapists will perform initial evaluation of pt's statu s upon admission and devise an individualized program for Gait Training, and Wheel Chair mobility Inability to transfer - to improve, our physical therapists will perform initial evaluation of pt's status upon admission and devise an individualized program for Bed mobility Need for home safety evaluation - to improve, our physical therapists will perform initial evaluatio n of pt's status upon admission and devise an individualized program for Home Evaluation Need in caregiver upon discharge - to improve, our physical therapists will perform initial evaluati on of pt's status upon admission and devise an individualized program for Caregiver Training New precaution - to improve, our physical therapists will perform initial evaluation of pt's status upon admission and devise an individualized program for Patient precaution education Edema - to improve, our physical therapists will perform initial evaluation of pt's status upon admis aleena and devise an individualized program for Elevation Training, and Lymphedema Therapy Poor balance - to improve, our physical therapists will perform initial evaluation of pt's status up on admission and devise an individualized program for Balance Training Poor endurance - to improve, our physical therapists will perform initial evaluation of pt's status upon admission and devise an individualized program for Endurance Training Weakness - to improve, our physical therapists will perform initial evaluation of pt's status upon a dmission and devise an individualized program for Aquatic Therapy, Neuromuscular Reeducation, and Str engthening Achieving independence - to improve, our physical therapists will perform initial evaluation of pt's status upon admission and devise an individualized program for Community Reintegration Activities - Occupational Therapy ADL deficits - to improve, our occupation therapists will perform initial evaluation of pt's status upon admission and devise an individualized program for Bathing, Bed mobility, Community Reintegratio n, Cooking, Dressing, Eating, Fine Motor Skills, Grooming, Homemaking, Kitchen Mobility, Laundry, Pat ient Education, Safety Awareness, Splinting - Positioning, Transfers(Toilet, Tub, Shower), and Wheel Chair Management Cognitive deficits - to improve, our occupation therapists will perform initial evaluation of pt's s tatus upon admission and devise an individualized program for Cognition - orientation Need for career services officer - to improve, our occupation therapists will perform initial evaluation of pt's status upon admission and devise an individualized program for Caregiver Training Weakness - to improve, our occupation therapists will perform initial evaluation of pt's status upon admission and devise an individualized program for Aquatic Therapy, Balance, Endurance, UE ROM, and UE strengthening - Other See attached MAR (Medication Administration Record) - Diet Type Continue Regular - Diet - Liquid Texture Continue Regular - Tube Feed Continue N/A - Bladder care per protocol - Weight Bearing Precaution WBAT right LE - Skin care per protocol - Diet - Solid Texture Continue Regular - Shower allowing shower for Dementia, TBI, Stroke, or others FUNCTIONAL STATUS: UPDATED AT WEEKLY TEAM CONFERENCE - Bladder Same accident frequency: 7-Ind - No accidents in the past 7 days - Bowel Same accident frequency: 7-Ind - No accidents in the past 7 days - Walking Same score based on distance walked: 0(N/A) Same score based on distance walked: 1(<=50ft) - Wheelchair Same score based on distance traveled: 0(N/A) FUNCTIONAL STATUS: - Self-Care A. Eating sup B. Grooming Regina C. Bathing maxA D. Dressing - Upper Regina E. Dressing - Lower maxA F. Toileting modA - Sphincter Control G. Bladder control Regina H. Bowel control Regina - Transfers Control I. Bed/Chair/Wheelchair modA J. Toilet modA K. Tub/Shower modA - Locomotion L. Walk/Wheelchair (B) maxA M. Stairs ADNO - Communication N. Comprehension (B) modA O. Expression (B) maxA - Social Cognition P. Social Interaction modA Q. Problem Solving maxA R. Memory modA - Endurance Poor - Balance Poor - Safety Awareness Poor QI SCORES: - Self-Care A. Eating 03-Partial/moderate assistance B. Oral hygiene 02-Substantial/maximal assistance C. Toileting hygiene 02-Substantial/maximal assistance E. Shower/bathe self 02-Substantial/maximal assistance F. Upper body dressing 03-Partial/moderate assistance G. Lower body dressing 02-Substantial/maximal assistance H. Putting on/taking off footwear 88-Not attempted due to medical condition or safety concerns - Mobility A. Roll left and right 03-Partial/moderate assistance B. Sit to lying 03-Partial/moderate assistance C. Lying to sitting on side of bed 03-Partial/moderate assistance D. Sit to stand 03-Partial/moderate assistance E. Chair/[id number]-[id number] transfer 03-Partial/moderate assistance F. Toilet transfer 02-Substantial/maximal assistance G. Car transfer 88-Not attempted due to medical condition or safety concerns I. Walk 10 feet 88-Not attempted due to medical condition or safety concerns J. Walk 50 feet with two turns 88-Not attempted due to medical condition or safety concerns K. Walk 150 feet 88-Not attempted due to medical condition or safety concerns L. Walking 10 feet on uneven surfaces 88-Not attempted due to medical condition or safety concerns M. 1 step (curb) 88-Not attempted due to medical condition or safety concerns N. 4 steps 88-Not attempted due to medical condition or safety concerns O. 12 steps 88-Not attempted due to medical condition or safety concerns P. Picking up object 88-Not attempted due to medical condition or safety concerns R. Wheel 50 feet with two turns 88-Not attempted due to medical condition or safety concerns S. Wheel 150 feet 88-Not attempted due to medical condition or safety concerns - Bladder and Bowel Bladder continence Bowel continence - Endurance Fair - Balance Fair - Safety Awareness Fair [facility] DEFICITS: Self-Care, Mobility, Endurance, Balance, and Safety Awareness SIGNATURE PANEL: (CDT)
[2021-12-22] MEDS: ATORVASTATIN 40 MG TAB PO SCH (20:10)
[2021-12-22] MEDS: MAGNESIUM OXIDE 400 MG TAB PO SCH (20:10)
[2021-12-22] MEDS: ENSURE ENLIVE 237 ML CAN PO SCH (20:10)
[2021-12-22] MEDS: ALBUTEROL 2.5 MG/3 ML NEB SOL NEB PRN (21:00)
[2021-12-23] MEDS: DULOXETINE 20 MG CAP PO SCH (07:50)
[2021-12-23] MEDS: GABAPENTIN 100 MG CAP PO SCH ×2 (07:50→20:25)
[2021-12-23] MEDS: ASPIRIN EC 81 MG TAB PO SCH (07:50)
[2021-12-23] MEDS: ENSURE ENLIVE 237 ML CAN PO SCH ×3 (07:50→20:25)
[2021-12-23] MEDS: APIXABAN 5 MG TABLET PO SCH ×2 (07:50→20:25)
[2021-12-23] MEDS: MAGNESIUM OXIDE 400 MG TAB PO SCH ×2 (07:50→20:25)
[2021-12-23] MEDS: NICOTINE 21 MG/PAT TD SCH (09:09)
[2021-12-23] MEDS: LIDOCAINE 4% PATCH TOP SCH (09:09)
--- NOTE | 2021-12-23 17:33 | R.PN ---
PROGRESS NOTES ENCOUNTER DATE AND TIME: 12/23/2021 17:28 (CDT) NAME ANURADHA MELENDEZ DATE OF : 1945 DATE OF ADMISSION: 12/21/2021 12:20 (CDT) ISCHEMIC CVACHIEF COMPLAINT: Left temporoparietal stroke, right sided weakness and aphasia SUBJECTIVE: Pt denied any depression. Pt denied any Shortness of Breath. CBC with differential is normal. Prealbumin 12.5, Creatinine 1.32. Wheelchair mobility 180' with minimum assistance. Ambulated 40' with moderate to maximum assistance u sing a walker. VITAL SIGNS Temperature: 97.4 F SBP/DBP: 135/70 Pulse: 69 Resp: 15 MEDICATION ALLERGIES: No Known Drug Allergies (NKDA) ENVIRONMENTAL ALLERGIES: - Substance Allergies None Known - Other Allergies None Known NURSING: - Shower allowing shower - Bladder care per protocol - Skin care per protocol PRECAUTIONS: - Weight Bearing Precaution WBAT right LE ACTIVITIES OOB only with supervision THERAPIES: - Dietary and Nutrition Adequate Nutrition. Nutritional Education. Nutritional Supplements. Evaluate and Treat. - Occupational Therapy Cognitive Retraining. Patient needs Occupational Therapy for a daily minimum of 1.5 hours at least 5 out of 7 days, to improve Activities of Daily Living, including: Eating, Grooming, Bathing, Dressing, Toileting, Toilet Transfers, Community Reintegration, Higher functional activities, Adaptive Equipme nt, Splinting, Household Tasks, and Other activities as determined. Visual Perceptual Training. ADL T raining. Patient/Family Education. Safety Awareness. Evaluate and Treat. Household Tasks. - Speech Therapy Cognitive Training. Expressive Language Skills. Memory Strategies. Patient needs Speech Therapy for a daily minimum of 1.5 hours at least 5 out of 7 days, to improve: Swallowing, Cognition, Language Ski lls, and Compensatory Strategies. Receptive Language Skills. Speech Intelligibility Training. Evaluat e and Treat. - Physical Therapy Patient needs Physical Therapy for a daily minimum of 1.5 hours at least 5 out of 7 days, to improve: Mobility, Strengthening, Transfers, Stretching, ROM, Endurance, Ability to manage stairs, Gait, and Balance. Balance Training. Evaluate and Treat. Gait Training. Patient/Family Education. Safety Awaren ess. Transfer Training. LE Strengthening. PHYSICAL EXAM - Gen Alert and awake Lying in bed No apparent distress Oriented to: person, time, and place - Skin No skin breakdown. No abnormalities - Eyes No abnormalities - ENMT No abnormalities - Neck No abnormalities - CVS RRR - Chest mild decrease in breath sounds - Resp Course lungs bilaterally - Abd Soft - GI + bowel sounds Deferred - No abnormalities - Ext No significant edema - MSK 4+/5 weakness in right upper and lower extremities - Neuro 4+/5 weakness in right upper and lower extremities and right sided numbness. - Psych No abnormalities ASSESSMENT: Pt. is a 76 yo Right-handed male.On 12/17/2021 Pt. presented to [facility] with sudden o nset of right-side weakness.On 12/17/2021 he was admitted to [facility] with diagnosis I SCHEMIC CVA.His impairment category is Stroke 01 - Right Body (Left Brain) (01.2).Pre-morbidly, Pt. was independent/mod-I in Locomotion, Safety Awareness, Social Cognition, Balance, and Transfers Contr ol; and he had good Sphincter Control, Self-Care, Communication, and Endurance.Currently, he has defi cits of Locomotion, Social Cognition, Safety Awareness, Balance, Transfers Control, Sphincter Control , Self-Care, Endurance, and Communication.Pt. is now referred to [facility] fo r acute in-patient rehabilitation in order to maximize patient's functional independence in activitie s of daily living, strength, ROM, and mobility.- Rehab Goal Patient has realistic goal of being discharged at assistance level 7-Ind to reside at Home with Pt s elf. MDM/PLAN: - Physical Therapy Gait dysfunction - to improve, our physical therapists will perform initial evaluation of pt's statu s upon admission and devise an individualized program for Gait Training, and Wheel Chair mobility Inability to transfer - to improve, our physical therapists will perform initial evaluation of pt's status upon admission and devise an individualized program for Bed mobility Need for home safety evaluation - to improve, our physical therapists will perform initial evaluatio n of pt's status upon admission and devise an individualized program for Home Evaluation Need in caregiver upon discharge - to improve, our physical therapists will perform initial evaluati on of pt's status upon admission and devise an individualized program for Caregiver Training New precaution - to improve, our physical therapists will perform initial evaluation of pt's status upon admission and devise an individualized program for Patient precaution education Edema - to improve, our physical therapists will perform initial evaluation of pt's status upon admi ssion and devise an individualized program for Elevation Training, and Lymphedema Therapy Poor balance - to improve, our physical therapists will perform initial evaluation of pt's status up on admission and devise an individualized program for Balance Training Poor endurance - to improve, our physical therapists will perform initial evaluation of pt's status upon admission and devise an individualized program for Endurance Training Weakness - to improve, our physical therapists will perform initial evaluation of pt's status upon a dmission and devise an individualized program for Aquatic Therapy, Neuromuscular Reeducation, and Str engthening Achieving independence - to improve, our physical therapists will perform initial evaluation of pt's status upon admission and devise an individualized program for Community Reintegration Activities - Occupational Therapy ADL deficits - to improve, our occupation therapists will perform initial evaluation of pt's status upon admission and devise an individualized program for Bathing, Bed mobility, Community Reintegratio n, Cooking, Dressing, Eating, Fine Motor Skills, Grooming, Homemaking, Kitchen Mobility, Laundry, Pat ient Education, Safety Awareness, Splinting - Positioning, Transfers(Toilet, Tub, Shower), and Wheel Chair Management Cognitive deficits - to improve, our occupation therapists will perform initial evaluation of pt's s tatus upon admission and devise an individualized program for Cognition - orientation Need for child care team lead - to improve, our occupation therapists will perform initial evaluation of pt's status upon admission and devise an individualized program for Caregiver Training Weakness - to improve, our occupation therapists will perform initial evaluation of pt's status upon admission and devise an individualized program for Aquatic Therapy, Balance, Endurance, UE ROM, and UE strengthening - Other See attached MAR (Medication Administration Record) - Diet Type Continue Regular - Diet - Liquid Texture Continue Regular - Tube Feed Continue N/A - Bladder care per protocol - Weight Bearing Precaution WBAT right LE - Skin care per protocol - Diet - Solid Texture Continue Regular - Shower allowing shower for Dementia, TBI, Stroke, or others FUNCTIONAL STATUS: UPDATED AT WEEKLY TEAM CONFERENCE - Bladder Same accident frequency: 7-Ind - No accidents in the past 7 days - Bowel Same accident frequency: 7-Ind - No accidents in the past 7 days - Walking Same score based on distance walked: 0(N/A) Same score based on distance walked: 1(<=50ft) - Wheelchair Same score based on distance traveled: 0(N/A) FUNCTIONAL STATUS: - Self-Care A. Eating sup B. Grooming Regina C. Bathing maxA D. Dressing - Upper Regina E. Dressing - Lower maxA F. Toileting modA - Sphincter Control G. Bladder control Regina H. Bowel control Regina - Transfers Control I. Bed/Chair/Wheelchair modA J. Toilet modA K. Tub/Shower modA - Locomotion L. Walk/Wheelchair (B) maxA M. Stairs ADNO - Communication N. Comprehension (B) modA O. Expression (B) maxA - Social Cognition P. Social Interaction modA Q. Problem Solving maxA R. Memory modA - Endurance Poor - Balance Poor - Safety Awareness Poor QI SCORES: - Self-Care A. Eating 03-Partial/moderate assistance B. Oral hygiene 02-Substantial/maximal assistance C. Toileting hygiene 02-Substantial/maximal assistance E. Shower/bathe self 02-Substantial/maximal assistance F. Upper body dressing 03-Partial/moderate assistance G. Lower body dressing 02-Substantial/maximal assistance H. Putting on/taking off footwear 88-Not attempted due to medical condition or safety concerns - Mobility A. Roll left and right 03-Partial/moderate assistance B. Sit to lying 03-Partial/moderate assistance C. Lying to sitting on side of bed 03-Partial/moderate assistance D. Sit to stand 03-Partial/moderate assistance E. Chair/vtv-fi-pourm transfer 03-Partial/moderate assistance F. Toilet transfer 02-Substantial/maximal assistance G. Car transfer 88-Not attempted due to medical condition or safety concerns I. Walk 10 feet 88-Not attempted due to medical condition or safety concerns J. Walk 50 feet with two turns 88-Not attempted due to medical condition or safety concerns K. Walk 150 feet 88-Not attempted due to medical condition or safety concerns L. Walking 10 feet on uneven surfaces 88-Not attempted due to medical condition or safety concerns M. 1 step (curb) 88-Not attempted due to medical condition or safety concerns N. 4 steps 88-Not attempted due to medical condition or safety concerns O. 12 steps 88-Not attempted due to medical condition or safety concerns P. Picking up object 88-Not attempted due to medical condition or safety concerns R. Wheel 50 feet with two turns 88-Not attempted due to medical condition or safety concerns S. Wheel 150 feet 88-Not attempted due to medical condition or safety concerns - Bladder and Bowel Bladder continence Bowel continence - Endurance Fair - Balance Fair - Safety Awareness Fair CURRENT [facility]. DEFICITS: Self-Care, Mobility, Endurance, Balance, and Safety Awareness SIGNATURE PANEL: (CDT)
[2021-12-23] MEDS: ATORVASTATIN 40 MG TAB PO SCH (20:25)
[2021-12-24 04:38] LABS: Absolute Lymphocytes (CBC) 1.2 K/uL (0.7-4.9); Hematocrit 39.5 % (39.6-49.0); Lymphocytes % 12.6 % (15.3-44.8); MPV 7.4 fL (7.6-11.3); RBC Red Blood Cell Count 4.54 M/uL (4.33-5.43)
[2021-12-24 04:52] LABS: Albumin 2.9 g/dL (3.4-5.0); Potassium 4.5 mmol/L (3.5-5.1)
[2021-12-24] MEDS: NICOTINE 21 MG/PAT TD SCH (06:45)
[2021-12-24] MEDS: LIDOCAINE 4% PATCH TOP SCH (06:45)
[2021-12-24] MEDS: ENSURE ENLIVE 237 ML CAN PO SCH ×2 (08:00→19:32)
[2021-12-24] MEDS: ASPIRIN EC 81 MG TAB PO SCH (08:02)
[2021-12-24] MEDS: APIXABAN 5 MG TABLET PO SCH ×2 (08:02→19:31)
[2021-12-24] MEDS: DULOXETINE 20 MG CAP PO SCH (08:02)
[2021-12-24] MEDS: MAGNESIUM OXIDE 400 MG TAB PO SCH ×2 (08:02→19:32)
[2021-12-24] MEDS: GABAPENTIN 100 MG CAP PO SCH ×2 (08:02→19:31)
--- NOTE | 2021-12-24 17:56 | R.PN ---
PROGRESS NOTES ENCOUNTER DATE AND TIME: 12/24/2021 17:50 (CDT) NAME ANURADHA MELENDEZ DATE OF : 1945 DATE OF ADMISSION: 12/21/2021 12:20 (CDT) ISCHEMIC CVACHIEF COMPLAINT: Left temporoparietal stroke, right sided weakness and aphasia SUBJECTIVE: Pt denied any depression. Pt denied any Shortness of Breath. CBC with differential is essentially normal. Prealbumin 12.0, Creatinine 1.28. Urine culture is nega tive. Wheelchair mobility 180' with minimum assistance. Ambulated 32' with moderate to maximum assistance i n parallel bars.. VITAL SIGNS Temperature: 97.6 F SBP/DBP: 111/71 Pulse: 66 Resp: 16 MEDICATION ALLERGIES: No Known Drug Allergies (NKDA) ENVIRONMENTAL ALLERGIES: - Substance Allergies None Known - Other Allergies None Known NURSING: - Shower allowing shower - Bladder care per protocol - Skin care per protocol PRECAUTIONS: - Weight Bearing Precaution WBAT right LE ACTIVITIES OOB only with supervision THERAPIES: - Dietary and Nutrition Adequate Nutrition. Nutritional Education. Nutritional Supplements. Evaluate and Treat. - Occupational Therapy Cognitive Retraining. Patient needs Occupational Therapy for a daily minimum of 1.5 hours at least 5 out of 7 days, to improve Activities of Daily Living, including: Eating, Grooming, Bathing, Dressing, Toileting, Toilet Transfers, Community Reintegration, Higher functional activities, Adaptive Equipme nt, Splinting, Household Tasks, and Other activities as determined. Visual Perceptual Training. ADL T raining. Patient/Family Education. Safety Awareness. Evaluate and Treat. Household Tasks. - Speech Therapy Cognitive Training. Expressive Language Skills. Memory Strategies. Patient needs Speech Therapy for a daily minimum of 1.5 hours at least 5 out of 7 days, to improve: Swallowing, Cognition, Language Ski lls, and Compensatory Strategies. Receptive Language Skills. Speech Intelligibility Training. Evaluat e and Treat. - Physical Therapy Patient needs Physical Therapy for a daily minimum of 1.5 hours at least 5 out of 7 days, to improve: Mobility, Strengthening, Transfers, Stretching, ROM, Endurance, Ability to manage stairs, Gait, and Balance. Balance Training. Evaluate and Treat. Gait Training. Patient/Family Education. Safety Awaren ess. Transfer Training. LE Strengthening. PHYSICAL EXAM - Gen Alert and awake Lying in bed No apparent distress Oriented to: person, time, and place - Skin No skin breakdown. No abnormalities - Eyes No abnormalities - ENMT No abnormalities - Neck No abnormalities - CVS RRR - Chest mild decrease in breath sounds - Resp Course lungs bilaterally - Abd Soft - GI + bowel sounds Deferred - No abnormalities - Ext No significant edema - MSK 4+/5 weakness in right upper and lower extremities - Neuro 4+/5 weakness in right upper and lower extremities and right sided numbness. - Psych No abnormalities ASSESSMENT: Pt. is a 76 yo Right-handed male.On 12/17/2021 Pt. presented to [facility] with sudden o nset of right-side weakness.On 12/17/2021 he was admitted to [facility] with diagnosis I SCHEMIC CVA.His impairment category is Stroke 01 - Right Body (Left Brain) (01.2).Pre-morbidly, Pt. was independent/mod-I in Locomotion, Safety Awareness, Social Cognition, Balance, and Transfers Contr ol; and he had good Sphincter Control, Self-Care, Communication, and Endurance.Currently, he has defi cits of Locomotion, Social Cognition, Safety Awareness, Balance, Transfers Control, Sphincter Control , Self-Care, Endurance, and Communication.Pt. is now referred to [facility] fo r acute in-patient rehabilitation in order to maximize patient's functional independence in activitie s of daily living, strength, ROM, and mobility.- Rehab Goal Patient has realistic goal of being discharged at assistance level 7-Ind to reside at Home with Pt s elf. MDM/PLAN: - Physical Therapy Gait dysfunction - to improve, our physical therapists will perform initial evaluation of pt's statu s upon admission and devise an individualized program for Gait Training, and Wheel Chair mobility Inability to transfer - to improve, our physical therapists will perform initial evaluation of pt's status upon admission and devise an individualized program for Bed mobility Need for home safety evaluation - to improve, our physical therapists will perform initial evaluatio n of pt's status upon admission and devise an individualized program for Home Evaluation Need in caregiver upon discharge - to improve, our physical therapists will perform initial evaluati on of pt's status upon admission and devise an individualized program for Caregiver Training New precaution - to improve, our physical therapists will perform initial evaluation of pt's status upon admission and devise an individualized program for Patient precaution education Edema - to improve, our physical therapists will perform initial evaluation of pt's status upon admi ssion and devise an individualized program for Elevation Training, and Lymphedema Therapy Poor balance - to improve, our physical therapists will perform initial evaluation of pt's status up on admission and devise an individualized program for Balance Training Poor endurance - to improve, our physical therapists will perform initial evaluation of pt's status upon admission and devise an individualized program for Endurance Training Weakness - to improve, our physical therapists will perform initial evaluation of pt's status upon a dmission and devise an individualized program for Aquatic Therapy, Neuromuscular Reeducation, and Str engthening Achieving independence - to improve, our physical therapists will perform initial evaluation of pt's status upon admission and devise an individualized program for Community Reintegration Activities - Occupational Therapy ADL deficits - to improve, our occupation therapists will perform initial evaluation of pt's status upon admission and devise an individualized program for Bathing, Bed mobility, Community Reintegratio n, Cooking, Dressing, Eating, Fine Motor Skills, Grooming, Homemaking, Kitchen Mobility, Laundry, Pat ient Education, Safety Awareness, Splinting - Positioning, Transfers(Toilet, Tub, Shower), and Wheel Chair Management Cognitive deficits - to improve, our occupation therapists will perform initial evaluation of pt's s tatus upon admission and devise an individualized program for Cognition - orientation Need for child care aide - to improve, our occupation therapists will perform initial evaluation of pt's status upon admission and devise an individualized program for Caregiver Training Weakness - to improve, our occupation therapists will perform initial evaluation of pt's status upon admission and devise an individualized program for Aquatic Therapy, Balance, Endurance, UE ROM, and UE strengthening - Other See attached MAR (Medication Administration Record) - Diet Type Continue Regular - Diet - Liquid Texture Continue Regular - Tube Feed Continue N/A - Bladder care per protocol - Weight Bearing Precaution WBAT right LE - Skin care per protocol - Diet - Solid Texture Continue Regular - Shower allowing shower for Dementia, TBI, Stroke, or others FUNCTIONAL STATUS: UPDATED AT WEEKLY TEAM CONFERENCE - Bladder Same accident frequency: 7-Ind - No accidents in the past 7 days - Bowel Same accident frequency: 7-Ind - No accidents in the past 7 days - Walking Same score based on distance walked: 0(N/A) Same score based on distance walked: 1(<=50ft) - Wheelchair Same score based on distance traveled: 0(N/A) FUNCTIONAL STATUS: - Self-Care A. Eating sup B. Grooming [place] C. Bathing maxA D. Dressing - Upper [place] E. Dressing - Lower maxA F. Toileting modA - Sphincter Control G. Bladder control [place]ina H. Bowel control [place] - Transfers Control I. Bed/Chair/Wheelchair modA J. Toilet modA K. Tub/Shower modA - Locomotion L. Walk/Wheelchair (B) maxA M. Stairs ADNO - Communication N. Comprehension (B) modA O. Expression (B) maxA - Social Cognition P. Social Interaction modA Q. Problem Solving maxA R. Memory modA - Endurance Poor - Balance Poor - Safety Awareness Poor QI SCORES: - Self-Care A. Eating 03-Partial/moderate assistance B. Oral hygiene 02-Substantial/maximal assistance C. Toileting hygiene 02-Substantial/maximal assistance E. Shower/bathe self 02-Substantial/maximal assistance F. Upper body dressing 03-Partial/moderate assistance G. Lower body dressing 02-Substantial/maximal assistance H. Putting on/taking off footwear 88-Not attempted due to medical condition or safety concerns - Mobility A. Roll left and right 03-Partial/moderate assistance B. Sit to lying 03-Partial/moderate assistance C. Lying to sitting on side of bed 03-Partial/moderate assistance D. Sit to stand 03-Partial/moderate assistance E. Chair/[id number] transfer 03-Partial/moderate assistance F. Toilet transfer 02-Substantial/maximal assistance G. Car transfer 88-Not attempted due to medical condition or safety concerns I. Walk 10 feet 88-Not attempted due to medical condition or safety concerns J. Walk 50 feet with two turns 88-Not attempted due to medical condition or safety concerns K. Walk 150 feet 88-Not attempted due to medical condition or safety concerns L. Walking 10 feet on uneven surfaces 88-Not attempted due to medical condition or safety concerns M. 1 step (curb) 88-Not attempted due to medical condition or safety concerns N. 4 steps 88-Not attempted due to medical condition or safety concerns O. 12 steps 88-Not attempted due to medical condition or safety concerns P. Picking up object 88-Not attempted due to medical condition or safety concerns R. Wheel 50 feet with two turns 88-Not attempted due to medical condition or safety concerns S. Wheel 150 feet 88-Not attempted due to medical condition or safety concerns - Bladder and Bowel Bladder continence Bowel continence - Endurance Fair - Balance Fair - Safety Awareness Fair [facility]RENT [facility]. DEFICITS: Self-Care, Mobility, Endurance, Balance, and Safety Awareness SIGNATURE PANEL: (CDT)
[2021-12-24] MEDS: ATORVASTATIN 40 MG TAB PO SCH (19:31)
[2021-12-25] MEDS: APIXABAN 5 MG TABLET PO SCH ×2 (07:16→20:03)
[2021-12-25] MEDS: ENSURE ENLIVE 237 ML CAN PO SCH ×2 (08:00→20:00)
[2021-12-25] MEDS: LIDOCAINE 4% PATCH TOP SCH (08:14)
[2021-12-25] MEDS: NICOTINE 21 MG/PAT TD SCH (08:14)
[2021-12-25] MEDS: MAGNESIUM OXIDE 400 MG TAB PO SCH ×2 (08:15→20:03)
[2021-12-25] MEDS: ASPIRIN EC 81 MG TAB PO SCH (08:15)
[2021-12-25] MEDS: DULOXETINE 20 MG CAP PO SCH (08:15)
[2021-12-25] MEDS: GABAPENTIN 100 MG CAP PO SCH ×2 (08:16→20:04)
--- NOTE | 2021-12-25 10:19 | P.RH.PN ---
Estimated Length of Stay: 18 Expected Discharge Date: 01/08/22 Discharge Disposition Plan: Home Family Support: Yes Intermediate Goal: Mobility, Transfers, Self Care Vital Signs: Last Vital Signs Temp 97.2 F 12/25/21 07:36 Pulse 66 12/25/21 07:36 Resp 18 12/25/21 07:36 BP 109/73 12/25/21 07:36 Pulse Ox 95 12/25/21 07:36 Laboratory: Laboratory Last Values WBC 9.3 K/uL (4.3-10.9) 12/24/21 04:18 RBC 4.54 M/uL (4.33-5.43) 12/24/21 04:18 Hgb 14.1 g/dL (13.6-17.9) 12/24/21 04:18 Hct 39.5 % (39.6-49.0) L 12/24/21 04:18 MCV 87.1 fL (80-100) 12/24/21 04:18 MCH 31.1 pg (27.0-35.0) 12/24/21 04:18 MCHC 35.7 g/dL (32.0-36.0) 12/24/21 04:18 RDW 14.8 % (12.1-15.2) 12/24/21 04:18 Plt Count 341 K/uL (152-406) 12/24/21 04:18 MPV 7.4 fL (7.6-11.3) L 12/24/21 04:18 Neutrophils % 72.4 % (41.7-73.7) 12/24/21 04:18 Lymphocytes % 12.6 % (15.3-44.8) L 12/24/21 04:18 Monocytes % 10.1 % (3.3-12.3) 12/24/21 04:18 Eosinophils % 4.1 % (0-4.4) 12/24/21 04:18 Basophils % 0.8 % (0-1.3) 12/24/21 04:18 Absolute Neutrophils 6.7 K/uL (1.8-8.0) 12/24/21 04:18 Absolute Lymphocytes 1.2 K/uL (0.7-4.9) 12/24/21 04:18 Absolute Monocytes 0.9 K/uL (0.1-1.3) 12/24/21 04:18 Absolute Eosinophils 0.4 K/uL (0-0.5) 12/24/21 04:18 Absolute Basophils 0.1 K/uL (0-0.5) 12/24/21 04:18 Sodium 137 mmol/L (136-145) 12/24/21 04:18 Potassium 4.5 mmol/L (3.5-5.1) 12/24/21 04:18 Chloride 107 mmol/L (98-107) 12/24/21 04:18 Carbon Dioxide 25 mmol/L (21-32) 12/24/21 04:18 Anion Gap 9.5 mEq/L (5.0-15.0) 12/24/21 04:18 BUN 19 mg/dL (7-18) H 12/24/21 04:18 Creatinine 1.28 mg/dL (0.55-1.3) 12/24/21 04:18 Estimated GFR 66 mL/min (=/>90) L 12/24/21 04:18 Glucose 100 mg/dL (74-106) 12/24/21 04:18 Calcium 8.7 mg/dL (8.5-10.1) 12/24/21 04:18 Magnesium 2.0 mg/dL (1.8-2.4) 12/24/21 04:18 Albumin 2.9 g/dL (3.4-5.0) L 12/24/21 04:18 Prealbumin 12.0 mg/dL (20-40) L 12/24/21 04:18 Urine Color Yellow (Yellow) 12/21/21 21:42 Urine Appearance Clear (Clear) 12/21/21 21:42 Urine pH 5.5 (5.0-7.0) 12/21/21 21:42 Ur Specific [place] 1.020 (1.005-1.030) 12/21/21 21:42 Glucose (UA)(Auto) Negative (Negative) 12/21/21 21:42 Urine Ketones Negative (Negative) 12/21/21 21:42 Urine Blood Trace-lysed (Negative) H 12/21/21 21:42 Urine Nitrite Negative (Negative) 12/21/21 21:42 Urine Bilirubin Negative (Negative) 12/21/21 21:42 Urine Urobilinogen 1.0 mg/dL (0.2-1.0) 12/21/21 21:42 Ur Leukocyte Esterase Negative (Negative) 12/21/21 21:42 Urine RBC 5-10 /HPF (NONE SEEN) H 12/21/21 21:42 Urine WBC 5-10 /HPF (<5) H 12/21/21 21:42 Ur Squamous Epith Cells <5 /HPF (NONE SEEN) 12/21/21 21:42 Ur Urothelial Cells Cancelled 12/21/21 21:26 Calcium Oxalate Crystal Cancelled 12/21/21 21:26 Uric Acid Crystals Cancelled 12/21/21 21:26 Triple Phos Crystals Cancelled 12/21/21 21:26 Other Crystals Cancelled 12/21/21 21:26 Amorphous Sediment Cancelled 12/21/21 21:26 Glitter Cells Cancelled 12/21/21 21:26 Urine Bacteria <20 /HPF (NONE SEEN) 12/21/21 21:42 Hyaline Casts Cancelled 12/21/21 21:26 Fine Granular Casts Cancelled 12/21/21 21:26 Coarse Granular Casts Cancelled 12/21/21 21:26 Waxy Casts Cancelled 12/21/21 21:26 RBC Casts Cancelled 12/21/21 21:26 WBC Casts Cancelled 12/21/21 21:26 Urine Mucus Cancelled 12/21/21 21:26 Urine Other Cancelled 12/21/21 21:26 Urine Trichomonas Cancelled 12/21/21 21:26 Urine Yeast Cancelled 12/21/21 21:26 Ur Yeast w Hyphae Cancelled 12/21/21 21:26 Urine Yeast (Budding) Cancelled 12/21/21 21:26 Urine Sperm Cancelled 12/21/21 21:26 Ur Microscopic Review Cancelled 12/21/21 21:42 Urine Culture Reflexed Not needed 12/21/21 21:42 Urine Total Volume Cancelled 12/21/21 21:26 Urine Total Protein Negative (Negative) 12/21/21 21:42 SARS-CoV-2 Rap RNA(RT-PCR) Negative (NEGATIVE) 12/21/21 15:50 Weight: 150 lb Wound Present: No Closed Surgical Incision Present: No Negative Pressure Wound Therapy Present: No Physician Update: He is making slow progress with speech therapy. Very poor comphension and expression. Bed mobility, sit to stand is CGA. Walking 26' with walker. Wheelchair 250' min assistance. Grooming min assistance, max assistance with other activities. Functional Improvement: Patient is working toward short-term goals at this time, and has showed marked improvement from previous day's session, compared to today's session. Patient is completing task, while maintaining improved balance, hand placement, and balance. Summary: Patient's care plan and [facility] goals have been reviewed and revised as necessary. Please see the Rehabilitation Signature page for all necessary signatures.
[2021-12-25] MEDS: ATORVASTATIN 40 MG TAB PO SCH (20:04)
[2021-12-26] MEDS: APIXABAN 5 MG TABLET PO SCH ×2 (07:21→20:47)
[2021-12-26] MEDS: ENSURE ENLIVE 237 ML CAN PO SCH ×2 (08:00→20:00)
[2021-12-26] MEDS: MAGNESIUM OXIDE 400 MG TAB PO SCH ×2 (08:23→20:47)
[2021-12-26] MEDS: LIDOCAINE 4% PATCH TOP SCH (08:23)
[2021-12-26] MEDS: NICOTINE 21 MG/PAT TD SCH (08:24)
[2021-12-26] MEDS: GABAPENTIN 100 MG CAP PO SCH ×2 (08:24→20:47)
[2021-12-26] MEDS: DULOXETINE 20 MG CAP PO SCH (08:24)
[2021-12-26] MEDS: ASPIRIN EC 81 MG TAB PO SCH (08:24)
[2021-12-26] MEDS: ACETAMINOPHEN 500 MG TAB PO PRN (10:26)
[2021-12-26] MEDS: ONDANSETRON 4 MG (ODT) TAB PO PRN (13:08)
[2021-12-26] MEDS: MAGNES/ALUMIN/SIMET 30ML UCUP PO PRN (13:08)
--- NOTE | 2021-12-26 17:00 | R.PN ---
PROGRESS NOTES ENCOUNTER DATE AND TIME: 12/26/2021 16:54 (CDT) NAME ANURADHA MELENDEZ DATE OF : 1945 DATE OF ADMISSION: 12/21/2021 12:20 (CDT) ISCHEMIC CVACHIEF COMPLAINT: Left temporoparietal stroke, right sided weakness and aphasia SUBJECTIVE: Pt denied any depression. Pt denied any Shortness of Breath. Glucose 147. CBC with differential is essentially normal. Prealbumin 12.0, Creatinine 1.28. Urine cu lture is negative. Lower extremity exercises done with min assistance. He was impulsive during the exercises. VITAL SIGNS Temperature: 97.3 F SBP/DBP: 109/60 Pulse: 50 Resp: 15 MEDICATION ALLERGIES: No Known Drug Allergies (NKDA) ENVIRONMENTAL ALLERGIES: - Substance Allergies None Known - Other Allergies None Known NURSING: - Shower allowing shower - Bladder care per protocol - Skin care per protocol PRECAUTIONS: - Weight Bearing Precaution WBAT right LE ACTIVITIES OOB only with supervision THERAPIES: - Dietary and Nutrition Adequate Nutrition. Nutritional Education. Nutritional Supplements. Evaluate and Treat. - Occupational Therapy Cognitive Retraining. Patient needs Occupational Therapy for a daily minimum of 1.5 hours at least 5 out of 7 days, to improve Activities of Daily Living, including: Eating, Grooming, Bathing, Dressing, Toileting, Toilet Transfers, Community Reintegration, Higher functional activities, Adaptive Equipme nt, Splinting, Household Tasks, and Other activities as determined. Visual Perceptual Training. ADL T raining. Patient/Family Education. Safety Awareness. Evaluate and Treat. Household Tasks. - Speech Therapy Cognitive Training. Expressive Language Skills. Memory Strategies. Patient needs Speech Therapy for a daily minimum of 1.5 hours at least 5 out of 7 days, to improve: Swallowing, Cognition, Language Ski lls, and Compensatory Strategies. Receptive Language Skills. Speech Intelligibility Training. Evaluat e and Treat. - Physical Therapy Patient needs Physical Therapy for a daily minimum of 1.5 hours at least 5 out of 7 days, to improve: Mobility, Strengthening, Transfers, Stretching, ROM, Endurance, Ability to manage stairs, Gait, and Balance. Balance Training. Evaluate and Treat. Gait Training. Patient/Family Education. Safety Awaren ess. Transfer Training. LE Strengthening. PHYSICAL EXAM - Gen Alert and awake Lying in bed No apparent distress Oriented to: person, time, and place - Skin No skin breakdown. No abnormalities - Eyes No abnormalities - ENMT No abnormalities - Neck No abnormalities - CVS RRR - Chest mild decrease in breath sounds - Resp Course lungs bilaterally - Abd Soft - GI + bowel sounds Deferred - No abnormalities - Ext No significant edema - MSK 4+/5 weakness in right upper and lower extremities - Neuro 4+/5 weakness in right upper and lower extremities and right sided numbness. - Psych No abnormalities ASSESSMENT: Pt. is a 76 yo Right-handed male.On 12/17/2021 Pt. presented to [facility] with sudden o nset of right-side weakness.On 12/17/2021 he was admitted to [facility] with diagnosis I SCHEMIC CVA.His impairment category is Stroke 01 - Right Body (Left Brain) (01.2).Pre-morbidly, Pt. was independent/mod-I in Locomotion, Safety Awareness, Social Cognition, Balance, and Transfers Contr ol; and he had good Sphincter Control, Self-Care, Communication, and Endurance.Currently, he has defi cits of Locomotion, Social Cognition, Safety Awareness, Balance, Transfers Control, Sphincter Control , Self-Care, Endurance, and Communication.Pt. is now referred to [facility] fo r acute in-patient rehabilitation in order to maximize patient's functional independence in activitie s of daily living, strength, ROM, and mobility.- Rehab Goal Patient has realistic goal of being discharged at assistance level 7-Ind to reside at Home with Pt s elf. MDM/PLAN: - Physical Therapy Gait dysfunction - to improve, our physical therapists will perform initial evaluation of pt's statu s upon admission and devise an individualized program for Gait Training, and Wheel Chair mobility Inability to transfer - to improve, our physical therapists will perform initial evaluation of pt's status upon admission and devise an individualized program for Bed mobility Need for home safety evaluation - to improve, our physical therapists will perform initial evaluatio n of pt's status upon admission and devise an individualized program for Home Evaluation Need in caregiver upon discharge - to improve, our physical therapists will perform initial evaluati on of pt's status upon admission and devise an individualized program for Caregiver Training New precaution - to improve, our physical therapists will perform initial evaluation of pt's status upon admission and devise an individualized program for Patient precaution education Edema - to improve, our physical therapists will perform initial evaluation of pt's status upon admi ssion and devise an individualized program for Elevation Training, and Lymphedema Therapy Poor balance - to improve, our physical therapists will perform initial evaluation of pt's status up on admission and devise an individualized program for Balance Training Poor endurance - to improve, our physical therapists will perform initial evaluation of pt's status upon admission and devise an individualized program for Endurance Training Weakness - to improve, our physical therapists will perform initial evaluation of pt's status upon a dmission and devise an individualized program for Aquatic Therapy, Neuromuscular Reeducation, and Str engthening Achieving independence - to improve, our physical therapists will perform initial evaluation of pt's status upon admission and devise an individualized program for Community Reintegration Activities - Occupational Therapy ADL deficits - to improve, our occupation therapists will perform initial evaluation of pt's status upon admission and devise an individualized program for Bathing, Bed mobility, Community Reintegratio n, Cooking, Dressing, Eating, Fine Motor Skills, Grooming, Homemaking, Kitchen Mobility, Laundry, Pat ient Education, Safety Awareness, Splinting - Positioning, Transfers(Toilet, Tub, Shower), and Wheel Chair Management Cognitive deficits - to improve, our occupation therapists will perform initial evaluation of pt's s tatus upon admission and devise an individualized program for Cognition - orientation Need for acute care surgeon - to improve, our occupation therapists will perform initial evaluation of pt's status upon admission and devise an individualized program for Caregiver Training Weakness - to improve, our occupation therapists will perform initial evaluation of pt's status upon admission and devise an individualized program for Aquatic Therapy, Balance, Endurance, UE ROM, and UE strengthening - Other See attached MAR (Medication Administration Record) - Diet Type Continue Regular - Diet - Liquid Texture Continue Regular - Tube Feed Continue N/A - Bladder care per protocol - Weight Bearing Precaution WBAT right LE - Skin care per protocol - Diet - Solid Texture Continue Regular - Shower allowing shower for Dementia, TBI, Stroke, or others FUNCTIONAL STATUS: UPDATED AT WEEKLY TEAM CONFERENCE - Bladder Same accident frequency: 7-Ind - No accidents in the past 7 days - Bowel Same accident frequency: 7-Ind - No accidents in the past 7 days - Walking Same score based on distance walked: 0(N/A) Same score based on distance walked: 1(<=50ft) - Wheelchair Same score based on distance traveled: 0(N/A) FUNCTIONAL STATUS: - Self-Care A. Eating sup B. Grooming Regina C. Bathing maxA D. Dressing - Upper Regina E. Dressing - Lower maxA F. Toileting modA - Sphincter Control G. Bladder control Regina H. Bowel control Regina - Transfers Control I. Bed/Chair/Wheelchair modA J. Toilet modA K. Tub/Shower modA - Locomotion L. Walk/Wheelchair (B) maxA M. Stairs ADNO - Communication N. Comprehension (B) modA O. Expression (B) maxA - Social Cognition P. Social Interaction modA Q. Problem Solving maxA R. Memory modA - Endurance Poor - Balance Poor - Safety Awareness Poor QI SCORES: - Self-Care A. Eating 03-Partial/moderate assistance B. Oral hygiene 02-Substantial/maximal assistance C. Toileting hygiene 02-Substantial/maximal assistance E. Shower/bathe self 02-Substantial/maximal assistance F. Upper body dressing 03-Partial/moderate assistance G. Lower body dressing 02-Substantial/maximal assistance H. Putting on/taking off footwear 88-Not attempted due to medical condition or safety concerns - Mobility A. Roll left and right 03-Partial/moderate assistance B. Sit to lying 03-Partial/moderate assistance C. Lying to sitting on side of bed 03-Partial/moderate assistance D. Sit to stand 03-Partial/moderate assistance E. Chair/buf-qq-utlel transfer 03-Partial/moderate assistance F. Toilet transfer 02-Substantial/maximal assistance G. Car transfer 88-Not attempted due to medical condition or safety concerns I. Walk 10 feet 88-Not attempted due to medical condition or safety concerns J. Walk 50 feet with two turns 88-Not attempted due to medical condition or safety concerns K. Walk 150 feet 88-Not attempted due to medical condition or safety concerns L. Walking 10 feet on uneven surfaces 88-Not attempted due to medical condition or safety concerns M. 1 step (curb) 88-Not attempted due to medical condition or safety concerns N. 4 steps 88-Not attempted due to medical condition or safety concerns O. 12 steps 88-Not attempted due to medical condition or safety concerns P. Picking up object 88-Not attempted due to medical condition or safety concerns R. Wheel 50 feet with two turns 88-Not attempted due to medical condition or safety concerns S. Wheel 150 feet 88-Not attempted due to medical condition or safety concerns - Bladder and Bowel Bladder continence Bowel continence - Endurance Fair - Balance Fair - Safety Awareness Fair [facility] DEFICITS: Self-Care, Mobility, Endurance, Balance, and Safety Awareness SIGNATURE PANEL: (CDT)
[2021-12-26] MEDS: ATORVASTATIN 40 MG TAB PO SCH (20:47)
[2021-12-27] MEDS: APIXABAN 5 MG TABLET PO SCH ×2 (07:41→19:32)
[2021-12-27] MEDS: ENSURE ENLIVE 237 ML CAN PO SCH ×2 (08:00→19:32)
[2021-12-27] MEDS: NICOTINE 21 MG/PAT TD SCH (09:13)
[2021-12-27] MEDS: LIDOCAINE 4% PATCH TOP SCH (09:14)
[2021-12-27] MEDS: ASPIRIN EC 81 MG TAB PO SCH (09:14)
[2021-12-27] MEDS: GABAPENTIN 100 MG CAP PO SCH ×2 (09:14→19:32)
[2021-12-27] MEDS: DULOXETINE 20 MG CAP PO SCH (09:14)
[2021-12-27] MEDS: MAGNESIUM OXIDE 400 MG TAB PO SCH ×2 (09:14→19:32)
[2021-12-27] MEDS: ATORVASTATIN 40 MG TAB PO SCH (19:32)
[2021-12-28] MEDS: APIXABAN 5 MG TABLET PO SCH ×2 (07:24→20:08)
[2021-12-28] MEDS: LIDOCAINE 4% PATCH TOP SCH ×3 (08:00→14:21)
[2021-12-28] MEDS: ENSURE ENLIVE 237 ML CAN PO SCH ×2 (08:00→20:00)
[2021-12-28] MEDS: MAGNESIUM OXIDE 400 MG TAB PO SCH ×2 (08:43→20:09)
[2021-12-28] MEDS: ASPIRIN EC 81 MG TAB PO SCH (08:43)
[2021-12-28] MEDS: DULOXETINE 20 MG CAP PO SCH (08:44)
[2021-12-28] MEDS: NICOTINE 21 MG/PAT TD SCH (08:44)
[2021-12-28] MEDS: GABAPENTIN 100 MG CAP PO SCH ×2 (08:44→20:09)
[2021-12-28] MEDS: ACETAMINOPHEN 500 MG TAB PO PRN (08:46)
--- NOTE | 2021-12-28 19:16 | R.PN ---
PROGRESS NOTES ENCOUNTER DATE AND TIME: 12/28/2021 19:12 (CDT) NAME ANURADHA MELENDEZ DATE OF : 1945 DATE OF ADMISSION: 12/21/2021 12:20 (CDT) ISCHEMIC CVACHIEF COMPLAINT: Left temporoparietal stroke, right sided weakness and aphasia SUBJECTIVE: Pt denied any depression. Pt denied any Shortness of Breath. Glucose 147. CBC with differential is essentially normal. Prealbumin 12.0, Creatinine 1.28. Urine cu lture is negative. Lower extremity exercises done with min assistance. He was impulsive during the exercises. Wheelchair mobilization 150' with minimum assistance. VITAL SIGNS Temperature: 97.0 F SBP/DBP: 117/75 Pulse: 67 Resp: 16 MEDICATION ALLERGIES: No Known Drug Allergies (NKDA) ENVIRONMENTAL ALLERGIES: - Substance Allergies None Known - Other Allergies None Known NURSING: - Shower allowing shower - Bladder care per protocol - Skin care per protocol PRECAUTIONS: - Weight Bearing Precaution WBAT right LE ACTIVITIES OOB only with supervision THERAPIES: - Dietary and Nutrition Adequate Nutrition. Nutritional Education. Nutritional Supplements. Evaluate and Treat. - Occupational Therapy Cognitive Retraining. Patient needs Occupational Therapy for a daily minimum of 1.5 hours at least 5 out of 7 days, to improve Activities of Daily Living, including: Eating, Grooming, Bathing, Dressing, Toileting, Toilet Transfers, Community Reintegration, Higher functional activities, Adaptive Equipme nt, Splinting, Household Tasks, and Other activities as determined. Visual Perceptual Training. ADL T raining. Patient/Family Education. Safety Awareness. Evaluate and Treat. Household Tasks. - Speech Therapy Cognitive Training. Expressive Language Skills. Memory Strategies. Patient needs Speech Therapy for a daily minimum of 1.5 hours at least 5 out of 7 days, to improve: Swallowing, Cognition, Language Ski lls, and Compensatory Strategies. Receptive Language Skills. Speech Intelligibility Training. Evaluat e and Treat. - Physical Therapy Patient needs Physical Therapy for a daily minimum of 1.5 hours at least 5 out of 7 days, to improve: Mobility, Strengthening, Transfers, Stretching, ROM, Endurance, Ability to manage stairs, Gait, and Balance. Balance Training. Evaluate and Treat. Gait Training. Patient/Family Education. Safety Awaren ess. Transfer Training. LE Strengthening. PHYSICAL EXAM - Gen Alert and awake Lying in bed No apparent distress Oriented to: person, time, and place - Skin No skin breakdown. No abnormalities - Eyes No abnormalities - ENMT No abnormalities - Neck No abnormalities - CVS RRR - Chest mild decrease in breath sounds - Resp Course lungs bilaterally - Abd Soft - GI + bowel sounds Deferred - No abnormalities - Ext No significant edema - MSK 4+/5 weakness in right upper and lower extremities - Neuro 4+/5 weakness in right upper and lower extremities and right sided numbness. - Psych No abnormalities ASSESSMENT: Pt. is a 76 yo Right-handed male.On 12/17/2021 Pt. presented to [facility] with sudden o nset of right-side weakness.On 12/17/2021 he was admitted to [facility] with diagnosis I SCHEMIC CVA.His impairment category is Stroke 01 - Right Body (Left Brain) (01.2).Pre-morbidly, Pt. was independent/mod-I in Locomotion, Safety Awareness, Social Cognition, Balance, and Transfers Contr ol; and he had good Sphincter Control, Self-Care, Communication, and Endurance.Currently, he has defi cits of Locomotion, Social Cognition, Safety Awareness, Balance, Transfers Control, Sphincter Control , Self-Care, Endurance, and Communication.Pt. is now referred to [facility] fo r acute in-patient rehabilitation in order to maximize patient's functional independence in activitie s of daily living, strength, ROM, and mobility.- Rehab Goal Patient has realistic goal of being discharged at assistance level 7-Ind to reside at Home with Pt s elf. MDM/PLAN: - Physical Therapy Gait dysfunction - to improve, our physical therapists will perform initial evaluation of pt's statu s upon admission and devise an individualized program for Gait Training, and Wheel Chair mobility Inability to transfer - to improve, our physical therapists will perform initial evaluation of pt's status upon admission and devise an individualized program for Bed mobility Need for home safety evaluation - to improve, our physical therapists will perform initial evaluatio n of pt's status upon admission and devise an individualized program for Home Evaluation Need in caregiver upon discharge - to improve, our physical therapists will perform initial evaluati on of pt's status upon admission and devise an individualized program for Caregiver Training New precaution - to improve, our physical therapists will perform initial evaluation of pt's status upon admission and devise an individualized program for Patient precaution education Edema - to improve, our physical therapists will perform initial evaluation of pt's status upon admi ssion and devise an individualized program for Elevation Training, and Lymphedema Therapy Poor balance - to improve, our physical therapists will perform initial evaluation of pt's status up on admission and devise an individualized program for Balance Training Poor endurance - to improve, our physical therapists will perform initial evaluation of pt's status upon admission and devise an individualized program for Endurance Training Weakness - to improve, our physical therapists will perform initial evaluation of pt's status upon a dmission and devise an individualized program for Aquatic Therapy, Neuromuscular Reeducation, and Str engthening Achieving independence - to improve, our physical therapists will perform initial evaluation of pt's status upon admission and devise an individualized program for Community Reintegration Activities - Occupational Therapy ADL deficits - to improve, our occupation therapists will perform initial evaluation of pt's status upon admission and devise an individualized program for Bathing, Bed mobility, Community Reintegratio n, Cooking, Dressing, Eating, Fine Motor Skills, Grooming, Homemaking, Kitchen Mobility, Laundry, Pat ient Education, Safety Awareness, Splinting - Positioning, Transfers(Toilet, Tub, Shower), and Wheel Chair Management Cognitive deficits - to improve, our occupation therapists will perform initial evaluation of pt's s tatus upon admission and devise an individualized program for Cognition - orientation Need for nursing care partner - to improve, our occupation therapists will perform initial evaluation of pt's status upon admission and devise an individualized program for Caregiver Training Weakness - to improve, our occupation therapists will perform initial evaluation of pt's status upon admission and devise an individualized program for Aquatic Therapy, Balance, Endurance, UE ROM, and UE strengthening - Other See attached MAR (Medication Administration Record) - Diet Type Continue Regular - Diet - Liquid Texture Continue Regular - Tube Feed Continue N/A - Bladder care per protocol - Weight Bearing Precaution WBAT right LE - Skin care per protocol - Diet - Solid Texture Continue Regular - Shower allowing shower for Dementia, TBI, Stroke, or others FUNCTIONAL STATUS: UPDATED AT WEEKLY TEAM CONFERENCE - Bladder Same accident frequency: 7-Ind - No accidents in the past 7 days - Bowel Same accident frequency: 7-Ind - No accidents in the past 7 days - Walking Same score based on distance walked: 0(N/A) Same score based on distance walked: 1(<=50ft) - Wheelchair Same score based on distance traveled: 0(N/A) FUNCTIONAL STATUS: - Self-Care A. Eating sup B. Grooming Regina C. Bathing maxA D. Dressing - Upper Regina E. Dressing - Lower maxA F. Toileting modA - Sphincter Control G. Bladder control Regina H. Bowel control Regina - Transfers Control I. Bed/Chair/Wheelchair modA J. Toilet modA K. Tub/Shower modA - Locomotion L. Walk/Wheelchair (B) maxA M. Stairs ADNO - Communication N. Comprehension (B) modA O. Expression (B) maxA - Social Cognition P. Social Interaction modA Q. Problem Solving maxA R. Memory modA - Endurance Poor - Balance Poor - Safety Awareness Poor QI SCORES: - Self-Care A. Eating 03-Partial/moderate assistance B. Oral hygiene 02-Substantial/maximal assistance C. Toileting hygiene 02-Substantial/maximal assistance E. Shower/bathe self 02-Substantial/maximal assistance F. Upper body dressing 03-Partial/moderate assistance G. Lower body dressing 02-Substantial/maximal assistance H. Putting on/taking off footwear 88-Not attempted due to medical condition or safety concerns - Mobility A. Roll left and right 03-Partial/moderate assistance B. Sit to lying 03-Partial/moderate assistance C. Lying to sitting on side of bed 03-Partial/moderate assistance D. Sit to stand 03-Partial/moderate assistance E. Chair/mvy-ma-ttaxh transfer 03-Partial/moderate assistance F. Toilet transfer 02-Substantial/maximal assistance G. Car transfer 88-Not attempted due to medical condition or safety concerns I. Walk 10 feet 88-Not attempted due to medical condition or safety concerns J. Walk 50 feet with two turns 88-Not attempted due to medical condition or safety concerns K. Walk 150 feet 88-Not attempted due to medical condition or safety concerns L. Walking 10 feet on uneven surfaces 88-Not attempted due to medical condition or safety concerns M. 1 step (curb) 88-Not attempted due to medical condition or safety concerns N. 4 steps 88-Not attempted due to medical condition or safety concerns O. 12 steps 88-Not attempted due to medical condition or safety concerns P. Picking up object 88-Not attempted due to medical condition or safety concerns R. Wheel 50 feet with two turns 88-Not attempted due to medical condition or safety concerns S. Wheel 150 feet 88-Not attempted due to medical condition or safety concerns - Bladder and Bowel Bladder continence Bowel continence - Endurance Fair - Balance Fair - Safety Awareness Fair CURRENT [facility]. DEFICITS: Self-Care, Mobility, Endurance, Balance, and Safety Awareness SIGNATURE PANEL: (CDT)
[2021-12-28] MEDS: ATORVASTATIN 40 MG TAB PO SCH (20:09)
[2021-12-29] MEDS: APIXABAN 5 MG TABLET PO SCH ×2 (07:33→20:19)
[2021-12-29] MEDS: ENSURE ENLIVE 237 ML CAN PO SCH ×2 (08:00→20:00)
[2021-12-29] MEDS: LIDOCAINE 4% PATCH TOP SCH (08:36)
[2021-12-29] MEDS: NICOTINE 21 MG/PAT TD SCH (08:36)
[2021-12-29] MEDS: MAGNESIUM OXIDE 400 MG TAB PO SCH ×2 (08:37→20:19)
[2021-12-29] MEDS: ASPIRIN EC 81 MG TAB PO SCH (08:37)
[2021-12-29] MEDS: DULOXETINE 20 MG CAP PO SCH (08:37)
[2021-12-29] MEDS: GABAPENTIN 100 MG CAP PO SCH ×2 (08:41→20:19)
[2021-12-29] MEDS: MAGNES/ALUMIN/SIMET 30ML UCUP PO PRN (12:40)
[2021-12-29] MEDS: ONDANSETRON 4 MG (ODT) TAB PO PRN (12:40)
--- NOTE | 2021-12-29 14:20 | RAD REPORT ---
EXAM DESCRIPTION: RAD - Abdomen 1 View (KUB) - 12/29/2021 2:09 pm CLINICAL HISTORY: abd pain Pain COMPARISON: No comparisons FINDINGS: Diffuse large and small bowel gaseous distention is present suggesting ileus. No bowel obs truction seen. No suspicious calcifications. No significant bony findings. IMPRESSION: Diffuse [id number] ileus is suspected.
--- NOTE | 2021-12-29 17:24 | R.PN ---
PROGRESS NOTES ENCOUNTER DATE AND TIME: 12/29/2021 17:21 (CDT) NAME ANURADHA MELENDEZ DATE OF : 1945 DATE OF ADMISSION: 12/21/2021 12:20 (CDT) ISCHEMIC CVACHIEF COMPLAINT: Left temporoparietal stroke, right sided weakness and aphasia SUBJECTIVE: Pt denied any depression. Pt denied any Shortness of Breath. Glucose 147. CBC with differential is essentially normal. Prealbumin 12.0, Creatinine 1.28. Urine cu lture is negative. Lower extremity exercises done with min assistance. He was impulsive during the exercises. Wheelchair mobilization 150' with contact guard assistance. Ambulated 63' with max assistance using a rolling walker. 2 VITAL SIGNS Temperature: 98.4 F SBP/DBP: 113/71 Pulse: 71 Resp: 16 MEDICATION ALLERGIES: No Known Drug Allergies (NKDA) ENVIRONMENTAL ALLERGIES: - Substance Allergies None Known - Other Allergies None Known NURSING: - Shower allowing shower - Bladder care per protocol - Skin care per protocol PRECAUTIONS: - Weight Bearing Precaution WBAT right LE ACTIVITIES OOB only with supervision THERAPIES: - Dietary and Nutrition Adequate Nutrition. Nutritional Education. Nutritional Supplements. Evaluate and Treat. - Occupational Therapy Cognitive Retraining. Patient needs Occupational Therapy for a daily minimum of 1.5 hours at least 5 out of 7 days, to improve Activities of Daily Living, including: Eating, Grooming, Bathing, Dressing, Toileting, Toilet Transfers, Community Reintegration, Higher functional activities, Adaptive Equipme nt, Splinting, Household Tasks, and Other activities as determined. Visual Perceptual Training. ADL T raining. Patient/Family Education. Safety Awareness. Evaluate and Treat. Household Tasks. - Speech Therapy Cognitive Training. Expressive Language Skills. Memory Strategies. Patient needs Speech Therapy for a daily minimum of 1.5 hours at least 5 out of 7 days, to improve: Swallowing, Cognition, Language Ski lls, and Compensatory Strategies. Receptive Language Skills. Speech Intelligibility Training. Evaluat e and Treat. - Physical Therapy Patient needs Physical Therapy for a daily minimum of 1.5 hours at least 5 out of 7 days, to improve: Mobility, Strengthening, Transfers, Stretching, ROM, Endurance, Ability to manage stairs, Gait, and Balance. Balance Training. Evaluate and Treat. Gait Training. Patient/Family Education. Safety Awaren ess. Transfer Training. LE Strengthening. PHYSICAL EXAM - Gen Alert and awake Lying in bed No apparent distress Oriented to: person, time, and place - Skin No skin breakdown. No abnormalities - Eyes No abnormalities - ENMT No abnormalities - Neck No abnormalities - CVS RRR - Chest mild decrease in breath sounds - Resp Course lungs bilaterally - Abd Soft - GI + bowel sounds Deferred - No abnormalities - Ext No significant edema - MSK 4+/5 weakness in right upper and lower extremities - Neuro 4+/5 weakness in right upper and lower extremities and right sided numbness. - Psych No abnormalities ASSESSMENT: Pt. is a 76 yo Right-handed male.On 12/17/2021 Pt. presented to [facility] with sudden o nset of right-side weakness.On 12/17/2021 he was admitted to [facility] with diagnosis I SCHEMIC CVA.His impairment category is Stroke 01 - Right Body (Left Brain) (01.2).Pre-morbidly, Pt. was independent/mod-I in Locomotion, Safety Awareness, Social Cognition, Balance, and Transfers Contr ol; and he had good Sphincter Control, Self-Care, Communication, and Endurance.Currently, he has defi cits of Locomotion, Social Cognition, Safety Awareness, Balance, Transfers Control, Sphincter Control , Self-Care, Endurance, and Communication.Pt. is now referred to [facility] fo r acute in-patient rehabilitation in order to maximize patient's functional independence in activitie s of daily living, strength, ROM, and mobility.- Rehab Goal Patient has realistic goal of being discharged at assistance level 7-Ind to reside at Home with Pt s elf. MDM/PLAN: - Physical Therapy Gait dysfunction - to improve, our physical therapists will perform initial evaluation of pt's statu s upon admission and devise an individualized program for Gait Training, and Wheel Chair mobility Inability to transfer - to improve, our physical therapists will perform initial evaluation of pt's status upon admission and devise an individualized program for Bed mobility Need for home safety evaluation - to improve, our physical therapists will perform initial evaluatio n of pt's status upon admission and devise an individualized program for Home Evaluation Need in caregiver upon discharge - to improve, our physical therapists will perform initial evaluati on of pt's status upon admission and devise an individualized program for Caregiver Training New precaution - to improve, our physical therapists will perform initial evaluation of pt's status upon admission and devise an individualized program for Patient precaution education Edema - to improve, our physical therapists will perform initial evaluation of pt's status upon admi ssion and devise an individualized program for Elevation Training, and Lymphedema Therapy Poor balance - to improve, our physical therapists will perform initial evaluation of pt's status up on admission and devise an individualized program for Balance Training Poor endurance - to improve, our physical therapists will perform initial evaluation of pt's status upon admission and devise an individualized program for Endurance Training Weakness - to improve, our physical therapists will perform initial evaluation of pt's status upon a dmission and devise an individualized program for Aquatic Therapy, Neuromuscular Reeducation, and Str engthening Achieving independence - to improve, our physical therapists will perform initial evaluation of pt's status upon admission and devise an individualized program for Community Reintegration Activities - Occupational Therapy ADL deficits - to improve, our occupation therapists will perform initial evaluation of pt's status upon admission and devise an individualized program for Bathing, Bed mobility, Community Reintegratio n, Cooking, Dressing, Eating, Fine Motor Skills, Grooming, Homemaking, Kitchen Mobility, Laundry, Pat ient Education, Safety Awareness, Splinting - Positioning, Transfers(Toilet, Tub, Shower), and Wheel Chair Management Cognitive deficits - to improve, our occupation therapists will perform initial evaluation of pt's s tatus upon admission and devise an individualized program for Cognition - orientation Need for critical care clinical nurse specialist - to improve, our occupation therapists will perform initial evaluation of pt's status upon admission and devise an individualized program for Caregiver Training Weakness - to improve, our occupation therapists will perform initial evaluation of pt's status upon admission and devise an individualized program for Aquatic Therapy, Balance, Endurance, UE ROM, and UE strengthening - Other See attached MAR (Medication Administration Record) - Diet Type Continue Regular - Diet - Liquid Texture Continue Regular - Tube Feed Continue N/A - Bladder care per protocol - Weight Bearing Precaution WBAT right LE - Skin care per protocol - Diet - Solid Texture Continue Regular - Shower allowing shower for Dementia, TBI, Stroke, or others FUNCTIONAL STATUS: UPDATED AT WEEKLY TEAM CONFERENCE - Bladder Same accident frequency: 7-Ind - No accidents in the past 7 days - Bowel Same accident frequency: 7-Ind - No accidents in the past 7 days - Walking Same score based on distance walked: 0(N/A) Same score based on distance walked: 1(<=50ft) - Wheelchair Same score based on distance traveled: 0(N/A) FUNCTIONAL STATUS: - Self-Care A. Eating sup B. Grooming Regina C. Bathing maxA D. Dressing - Upper Regina E. Dressing - Lower maxA F. Toileting modA - Sphincter Control G. Bladder control Regina H. Bowel control Regina - Transfers Control I. Bed/Chair/Wheelchair modA J. Toilet modA K. Tub/Shower modA - Locomotion L. Walk/Wheelchair (B) maxA M. Stairs ADNO - Communication N. Comprehension (B) modA O. Expression (B) maxA - Social Cognition P. Social Interaction modA Q. Problem Solving maxA R. Memory modA - Endurance Poor - Balance Poor - Safety Awareness Poor QI SCORES: - Self-Care A. Eating 03-Partial/moderate assistance B. Oral hygiene 02-Substantial/maximal assistance C. Toileting hygiene 02-Substantial/maximal assistance E. Shower/bathe self 02-Substantial/maximal assistance F. Upper body dressing 03-Partial/moderate assistance G. Lower body dressing 02-Substantial/maximal assistance H. Putting on/taking off footwear 88-Not attempted due to medical condition or safety concerns - Mobility A. Roll left and right 03-Partial/moderate assistance B. Sit to lying 03-Partial/moderate assistance C. Lying to sitting on side of bed 03-Partial/moderate assistance D. Sit to stand 03-Partial/moderate assistance E. Chair/[id number] transfer 03-Partial/moderate assistance F. Toilet transfer 02-Substantial/maximal assistance G. Car transfer 88-Not attempted due to medical condition or safety concerns I. Walk 10 feet 88-Not attempted due to medical condition or safety concerns J. Walk 50 feet with two turns 88-Not attempted due to medical condition or safety concerns K. Walk 150 feet 88-Not attempted due to medical condition or safety concerns L. Walking 10 feet on uneven surfaces 88-Not attempted due to medical condition or safety concerns M. 1 step (curb) 88-Not attempted due to medical condition or safety concerns N. 4 steps 88-Not attempted due to medical condition or safety concerns O. 12 steps 88-Not attempted due to medical condition or safety concerns P. Picking up object 88-Not attempted due to medical condition or safety concerns R. Wheel 50 feet with two turns 88-Not attempted due to medical condition or safety concerns S. Wheel 150 feet 88-Not attempted due to medical condition or safety concerns - Bladder and Bowel Bladder continence Bowel continence - Endurance Fair - Balance Fair - Safety Awareness Fair CURRENT [facility]. DEFICITS: Self-Care, Mobility, Endurance, Balance, and Safety Awareness SIGNATURE PANEL: (CDT)
[2021-12-29] MEDS: ATORVASTATIN 40 MG TAB PO SCH (20:19)
[2021-12-30] MEDS: DULOXETINE 20 MG CAP PO SCH (07:53)
[2021-12-30] MEDS: MAGNESIUM OXIDE 400 MG TAB PO SCH ×2 (07:53→19:25)
[2021-12-30] MEDS: ASPIRIN EC 81 MG TAB PO SCH (07:54)
[2021-12-30] MEDS: GABAPENTIN 100 MG CAP PO SCH ×2 (07:54→19:25)
[2021-12-30] MEDS: APIXABAN 5 MG TABLET PO SCH ×2 (07:54→19:25)
[2021-12-30] MEDS: ENSURE ENLIVE 237 ML CAN PO SCH ×2 (08:00→19:26)
[2021-12-30] MEDS: LIDOCAINE 4% PATCH TOP SCH (09:40)
[2021-12-30] MEDS: NICOTINE 21 MG/PAT TD SCH (09:41)
--- NOTE | 2021-12-30 17:12 | R.PN ---
PROGRESS NOTES ENCOUNTER DATE AND TIME: 12/30/2021 17:08 (CDT) NAME ANURADHA MELENDEZ DATE OF : 1945 DATE OF ADMISSION: 12/21/2021 12:20 (CDT) ISCHEMIC CVACHIEF COMPLAINT: Left temporoparietal stroke, right sided weakness and aphasia SUBJECTIVE: Pt denied any depression. Pt denied any Shortness of Breath. Glucose 147. CBC with differential is essentially normal. Prealbumin 12.0, Creatinine 1.28. Urine cu lture is negative. Lower extremity exercises done with min assistance. He was impulsive during the exercises. Wheelchair mobilization 75' with contact guard assistance. Ambulated 45' with max assistance using a rolling walker. Expression and comprehension done with 91% accuracy. VITAL SIGNS Temperature: 97.6 F SBP/DBP: 107/64 Pulse: 86 Resp: 16 MEDICATION ALLERGIES: No Known Drug Allergies (NKDA) ENVIRONMENTAL ALLERGIES: - Substance Allergies None Known - Other Allergies None Known NURSING: - Shower allowing shower - Bladder care per protocol - Skin care per protocol PRECAUTIONS: - Weight Bearing Precaution WBAT right LE ACTIVITIES OOB only with supervision THERAPIES: - Dietary and Nutrition Adequate Nutrition. Nutritional Education. Nutritional Supplements. Evaluate and Treat. - Occupational Therapy Cognitive Retraining. Patient needs Occupational Therapy for a daily minimum of 1.5 hours at least 5 out of 7 days, to improve Activities of Daily Living, including: Eating, Grooming, Bathing, Dressing, Toileting, Toilet Transfers, Community Reintegration, Higher functional activities, Adaptive Equipme nt, Splinting, Household Tasks, and Other activities as determined. Visual Perceptual Training. ADL T raining. Patient/Family Education. Safety Awareness. Evaluate and Treat. Household Tasks. - Speech Therapy Cognitive Training. Expressive Language Skills. Memory Strategies. Patient needs Speech Therapy for a daily minimum of 1.5 hours at least 5 out of 7 days, to improve: Swallowing, Cognition, Language Ski lls, and Compensatory Strategies. Receptive Language Skills. Speech Intelligibility Training. Evaluat e and Treat. - Physical Therapy Patient needs Physical Therapy for a daily minimum of 1.5 hours at least 5 out of 7 days, to improve: Mobility, Strengthening, Transfers, Stretching, ROM, Endurance, Ability to manage stairs, Gait, and Balance. Balance Training. Evaluate and Treat. Gait Training. Patient/Family Education. Safety Awaren ess. Transfer Training. LE Strengthening. PHYSICAL EXAM - Gen Alert and awake Lying in bed No apparent distress Oriented to: person, time, and place - Skin No skin breakdown. No abnormalities - Eyes No abnormalities - ENMT No abnormalities - Neck No abnormalities - CVS RRR - Chest mild decrease in breath sounds - Resp Course lungs bilaterally - Abd Soft - GI + bowel sounds Deferred - No abnormalities - Ext No significant edema - MSK 4+/5 weakness in right upper and lower extremities - Neuro 4+/5 weakness in right upper and lower extremities and right sided numbness. - Psych No abnormalities ASSESSMENT: Pt. is a 76 yo Right-handed male.On 12/17/2021 Pt. presented to [facility] with sudden o nset of right-side weakness.On 12/17/2021 he was admitted to [facility] with diagnosis I SCHEMIC CVA.His impairment category is Stroke 01 - Right Body (Left Brain) (01.2).Pre-morbidly, Pt. was independent/mod-I in Locomotion, Safety Awareness, Social Cognition, Balance, and Transfers Contr ol; and he had good Sphincter Control, Self-Care, Communication, and Endurance.Currently, he has defi cits of Locomotion, Social Cognition, Safety Awareness, Balance, Transfers Control, Sphincter Control , Self-Care, Endurance, and Communication.Pt. is now referred to [facility] fo r acute in-patient rehabilitation in order to maximize patient's functional independence in activitie s of daily living, strength, ROM, and mobility.- Rehab Goal Patient has realistic goal of being discharged at assistance level 7-Ind to reside at Home with Pt s elf. MDM/PLAN: - Physical Therapy Gait dysfunction - to improve, our physical therapists will perform initial evaluation of pt's statu s upon admission and devise an individualized program for Gait Training, and Wheel Chair mobility Inability to transfer - to improve, our physical therapists will perform initial evaluation of pt's status upon admission and devise an individualized program for Bed mobility Need for home safety evaluation - to improve, our physical therapists will perform initial evaluatio n of pt's status upon admission and devise an individualized program for Home Evaluation Need in caregiver upon discharge - to improve, our physical therapists will perform initial evaluati on of pt's status upon admission and devise an individualized program for Caregiver Training New precaution - to improve, our physical therapists will perform initial evaluation of pt's status upon admission and devise an individualized program for Patient precaution education Edema - to improve, our physical therapists will perform initial evaluation of pt's status upon admi ssion and devise an individualized program for Elevation Training, and Lymphedema Therapy Poor balance - to improve, our physical therapists will perform initial evaluation of pt's status up on admission and devise an individualized program for Balance Training Poor endurance - to improve, our physical therapists will perform initial evaluation of pt's status upon admission and devise an individualized program for Endurance Training Weakness - to improve, our physical therapists will perform initial evaluation of pt's status upon a dmission and devise an individualized program for Aquatic Therapy, Neuromuscular Reeducation, and Str engthening Achieving independence - to improve, our physical therapists will perform initial evaluation of pt's status upon admission and devise an individualized program for Community Reintegration Activities - Occupational Therapy ADL deficits - to improve, our occupation therapists will perform initial evaluation of pt's status upon admission and devise an individualized program for Bathing, Bed mobility, Community Reintegratio n, Cooking, Dressing, Eating, Fine Motor Skills, Grooming, Homemaking, Kitchen Mobility, Laundry, Pat ient Education, Safety Awareness, Splinting - Positioning, Transfers(Toilet, Tub, Shower), and Wheel Chair Management Cognitive deficits - to improve, our occupation therapists will perform initial evaluation of pt's s tatus upon admission and devise an individualized program for Cognition - orientation Need for home health care provider - to improve, our occupation therapists will perform initial evaluation of pt's status upon admission and devise an individualized program for Caregiver Training Weakness - to improve, our occupation therapists will perform initial evaluation of pt's status upon admission and devise an individualized program for Aquatic Therapy, Balance, Endurance, UE ROM, and UE strengthening - Other See attached MAR (Medication Administration Record) - Diet Type Continue Regular - Diet - Liquid Texture Continue Regular - Tube Feed Continue N/A - Bladder care per protocol - Weight Bearing Precaution WBAT right LE - Skin care per protocol - Diet - Solid Texture Continue Regular - Shower allowing shower for Dementia, TBI, Stroke, or others FUNCTIONAL STATUS: UPDATED AT WEEKLY TEAM CONFERENCE - Bladder Same accident frequency: 7-Ind - No accidents in the past 7 days - Bowel Same accident frequency: 7-Ind - No accidents in the past 7 days - Walking Same score based on distance walked: 0(N/A) Same score based on distance walked: 1(<=50ft) - Wheelchair Same score based on distance traveled: 0(N/A) FUNCTIONAL STATUS: - Self-Care A. Eating sup B. Grooming Regina C. Bathing maxA D. Dressing - Upper Regina E. Dressing - Lower maxA F. Toileting modA - Sphincter Control G. Bladder control Regina H. Bowel control Regina - Transfers Control I. Bed/Chair/Wheelchair modA J. Toilet modA K. Tub/Shower modA - Locomotion L. Walk/Wheelchair (B) maxA M. Stairs ADNO - Communication N. Comprehension (B) modA O. Expression (B) maxA - Social Cognition P. Social Interaction modA Q. Problem Solving maxA R. Memory modA - Endurance Poor - Balance Poor - Safety Awareness Poor QI SCORES: - Self-Care A. Eating 03-Partial/moderate assistance B. Oral hygiene 02-Substantial/maximal assistance C. Toileting hygiene 02-Substantial/maximal assistance E. Shower/bathe self 02-Substantial/maximal assistance F. Upper body dressing 03-Partial/moderate assistance G. Lower body dressing 02-Substantial/maximal assistance H. Putting on/taking off footwear 88-Not attempted due to medical condition or safety concerns - Mobility A. Roll left and right 03-Partial/moderate assistance B. Sit to lying 03-Partial/moderate assistance C. Lying to sitting on side of bed 03-Partial/moderate assistance D. Sit to stand 03-Partial/moderate assistance E. Chair/emr-[id number]-rorfv transfer 03-Partial/moderate assistance F. Toilet transfer 02-Substantial/maximal assistance G. Car transfer 88-Not attempted due to medical condition or safety concerns I. Walk 10 feet 88-Not attempted due to medical condition or safety concerns J. Walk 50 feet with two turns 88-Not attempted due to medical condition or safety concerns K. Walk 150 feet 88-Not attempted due to medical condition or safety concerns L. Walking 10 feet on uneven surfaces 88-Not attempted due to medical condition or safety concerns M. 1 step (curb) 88-Not attempted due to medical condition or safety concerns N. 4 steps 88-Not attempted due to medical condition or safety concerns O. 12 steps 88-Not attempted due to medical condition or safety concerns P. Picking up object 88-Not attempted due to medical condition or safety concerns R. Wheel 50 feet with two turns 88-Not attempted due to medical condition or safety concerns S. Wheel 150 feet 88-Not attempted due to medical condition or safety concerns - Bladder and Bowel Bladder continence Bowel continence - Endurance Fair - Balance Fair - Safety Awareness Fair CURRENT [facility]. DEFICITS: Self-Care, Mobility, Endurance, Balance, and Safety Awareness SIGNATURE PANEL: (CDT)
[2021-12-30] MEDS: ATORVASTATIN 40 MG TAB PO SCH (19:25)
[2021-12-31 05:53] LABS: Absolute Lymphocytes (CBC) 1.4 K/uL (0.7-4.9); Lymphocytes % 12.7 % (15.3-44.8); MPV 7.1 fL (7.6-11.3); RBC Red Blood Cell Count 4.87 M/uL (4.33-5.43)
[2021-12-31 06:18] LABS: Albumin 3.2 g/dL (3.4-5.0); Magnesium 2.7 mg/dL (1.8-2.4); Potassium 4.6 mmol/L (3.5-5.1); Prealbumin 16.6 mg/dL (20-40)
[2021-12-31] MEDS: ENSURE ENLIVE 237 ML CAN PO SCH ×2 (08:00→20:00)
[2021-12-31] MEDS: LIDOCAINE 4% PATCH TOP SCH (08:24)
[2021-12-31] MEDS: NICOTINE 21 MG/PAT TD SCH (08:24)
[2021-12-31] MEDS: APIXABAN 5 MG TABLET PO SCH ×2 (08:24→20:07)
[2021-12-31] MEDS: GABAPENTIN 100 MG CAP PO SCH ×2 (08:25→20:07)
[2021-12-31] MEDS: ASPIRIN EC 81 MG TAB PO SCH (08:25)
[2021-12-31] MEDS: DULOXETINE 20 MG CAP PO SCH (08:25)
[2021-12-31] MEDS: MAGNESIUM OXIDE 400 MG TAB PO SCH ×2 (08:25→20:07)
[2021-12-31] MEDS: ACETAMINOPHEN 500 MG TAB PO PRN (14:41)
--- NOTE | 2021-12-31 18:49 | R.PN ---
PROGRESS NOTES ENCOUNTER DATE AND TIME: 12/31/2021 18:41 (CDT) NAME ANURADHA MELENDEZ DATE OF : 1945 DATE OF ADMISSION: 12/21/2021 12:20 (CDT) ISCHEMIC CVACHIEF COMPLAINT: Left temporoparietal stroke, right sided weakness and aphasia SUBJECTIVE: Pt denied any depression. Pt denied any Shortness of Breath. Glucose 147. CBC with differential is unremarkable except WBC 11.0, Plt 426. Prealbumin 16.6, Creati nine 1.60. Urine culture is negative. Wheelchair mobilization 250' with contact guard assistance. Ambulated 145' with moderate assistance using a rolling walker. Expression and comprehension done with 91% accuracy. KUB diffuse mild to moderate ileus is suspected. Will give Simethicone 80 mg x 1. VITAL SIGNS Temperature: 97.2 F SBP/DBP: 156/77 Pulse: 72 Resp: 16 MEDICATION ALLERGIES: No Known Drug Allergies (NKDA) ENVIRONMENTAL ALLERGIES: - Substance Allergies None Known - Other Allergies None Known NURSING: - Shower allowing shower - Bladder care per protocol - Skin care per protocol PRECAUTIONS: - Weight Bearing Precaution WBAT right LE ACTIVITIES OOB only with supervision THERAPIES: - Dietary and Nutrition Adequate Nutrition. Nutritional Education. Nutritional Supplements. Evaluate and Treat. - Occupational Therapy Cognitive Retraining. Patient needs Occupational Therapy for a daily minimum of 1.5 hours at least 5 out of 7 days, to improve Activities of Daily Living, including: Eating, Grooming, Bathing, Dressing, Toileting, Toilet Transfers, Community Reintegration, Higher functional activities, Adaptive Equipme nt, Splinting, Household Tasks, and Other activities as determined. Visual Perceptual Training. ADL T raining. Patient/Family Education. Safety Awareness. Evaluate and Treat. Household Tasks. - Speech Therapy Cognitive Training. Expressive Language Skills. Memory Strategies. Patient needs Speech Therapy for a daily minimum of 1.5 hours at least 5 out of 7 days, to improve: Swallowing, Cognition, Language Ski lls, and Compensatory Strategies. Receptive Language Skills. Speech Intelligibility Training. Evaluat e and Treat. - Physical Therapy Patient needs Physical Therapy for a daily minimum of 1.5 hours at least 5 out of 7 days, to improve: Mobility, Strengthening, Transfers, Stretching, ROM, Endurance, Ability to manage stairs, Gait, and Balance. Balance Training. Evaluate and Treat. Gait Training. Patient/Family Education. Safety Awaren ess. Transfer Training. LE Strengthening. PHYSICAL EXAM - Gen Alert and awake Lying in bed No apparent distress Oriented to: person, time, and place - Skin No skin breakdown. No abnormalities - Eyes No abnormalities - ENMT No abnormalities - Neck No abnormalities - CVS RRR - Chest mild decrease in breath sounds - Resp Course lungs bilaterally - Abd Soft - GI + bowel sounds Deferred - No abnormalities - Ext No significant edema - MSK 4+/5 weakness in right upper and lower extremities - Neuro 4+/5 weakness in right upper and lower extremities and right sided numbness. - Psych No abnormalities ASSESSMENT: Pt. is a 76 yo Right-handed male.On 12/17/2021 Pt. presented to [facility] with sudden o nset of right-side weakness.On 12/17/2021 he was admitted to [facility] with diagnosis I SCHEMIC CVA.His impairment category is Stroke 01 - Right Body (Left Brain) (01.2).Pre-morbidly, Pt. was independent/mod-I in Locomotion, Safety Awareness, Social Cognition, Balance, and Transfers Contr ol; and he had good Sphincter Control, Self-Care, Communication, and Endurance.Currently, he has defi cits of Locomotion, Social Cognition, Safety Awareness, Balance, Transfers Control, Sphincter Control , Self-Care, Endurance, and Communication.Pt. is now referred to [facility] fo r acute in-patient rehabilitation in order to maximize patient's functional independence in activitie s of daily living, strength, ROM, and mobility.- Rehab Goal Patient has realistic goal of being discharged at assistance level 7-Ind to reside at Home with Pt s elf. MDM/PLAN: - Physical Therapy Gait dysfunction - to improve, our physical therapists will perform initial evaluation of pt's statu s upon admission and devise an individualized program for Gait Training, and Wheel Chair mobility Inability to transfer - to improve, our physical therapists will perform initial evaluation of pt's status upon admission and devise an individualized program for Bed mobility Need for home safety evaluation - to improve, our physical therapists will perform initial evaluatio n of pt's status upon admission and devise an individualized program for Home Evaluation Need in caregiver upon discharge - to improve, our physical therapists will perform initial evaluati on of pt's status upon admission and devise an individualized program for Caregiver Training New precaution - to improve, our physical therapists will perform initial evaluation of pt's status upon admission and devise an individualized program for Patient precaution education Edema - to improve, our physical therapists will perform initial evaluation of pt's status upon admi ssion and devise an individualized program for Elevation Training, and Lymphedema Therapy Poor balance - to improve, our physical therapists will perform initial evaluation of pt's status up on admission and devise an individualized program for Balance Training Poor endurance - to improve, our physical therapists will perform initial evaluation of pt's status upon admission and devise an individualized program for Endurance Training Weakness - to improve, our physical therapists will perform initial evaluation of pt's status upon a dmission and devise an individualized program for Aquatic Therapy, Neuromuscular Reeducation, and Str engthening Achieving independence - to improve, our physical therapists will perform initial evaluation of pt's status upon admission and devise an individualized program for Community Reintegration Activities - Occupational Therapy ADL deficits - to improve, our occupation therapists will perform initial evaluation of pt's status upon admission and devise an individualized program for Bathing, Bed mobility, Community Reintegratio n, Cooking, Dressing, Eating, Fine Motor Skills, Grooming, Homemaking, Kitchen Mobility, Laundry, Pat ient Education, Safety Awareness, Splinting - Positioning, Transfers(Toilet, Tub, Shower), and Wheel Chair Management Cognitive deficits - to improve, our occupation therapists will perform initial evaluation of pt's s tatus upon admission and devise an individualized program for Cognition - orientation Need for director long term care - to improve, our occupation therapists will perform initial evaluation of pt's status upon admission and devise an individualized program for Caregiver Training Weakness - to improve, our occupation therapists will perform initial evaluation of pt's status upon admission and devise an individualized program for Aquatic Therapy, Balance, Endurance, UE ROM, and UE strengthening - Other See attached MAR (Medication Administration Record) - Diet Type Continue Regular - Diet - Liquid Texture Continue Regular - Tube Feed Continue N/A - Bladder care per protocol - Weight Bearing Precaution WBAT right LE - Skin care per protocol - Diet - Solid Texture Continue Regular - Shower allowing shower for Dementia, TBI, Stroke, or others FUNCTIONAL STATUS: UPDATED AT WEEKLY TEAM CONFERENCE - Bladder Same accident frequency: 7-Ind - No accidents in the past 7 days - Bowel Same accident frequency: 7-Ind - No accidents in the past 7 days - Walking Same score based on distance walked: 0(N/A) Same score based on distance walked: 1(<=50ft) - Wheelchair Same score based on distance traveled: 0(N/A) FUNCTIONAL STATUS: - Self-Care A. Eating sup B. Grooming [place] C. Bathing maxA D. Dressing - Upper [place] E. Dressing - Lower maxA F. Toileting modA - Sphincter Control G. Bladder control Regina H. Bowel control [place] - Transfers Control I. Bed/Chair/Wheelchair modA J. Toilet modA K. Tub/Shower modA - Locomotion L. Walk/Wheelchair (B) maxA M. Stairs ADNO - Communication N. Comprehension (B) modA O. Expression (B) maxA - Social Cognition P. Social Interaction modA Q. Problem Solving maxA R. Memory modA - Endurance Poor - Balance Poor - Safety Awareness Poor QI SCORES: - Self-Care A. Eating 03-Partial/moderate assistance B. Oral hygiene 02-Substantial/maximal assistance C. Toileting hygiene 02-Substantial/maximal assistance E. Shower/bathe self 02-Substantial/maximal assistance F. Upper body dressing 03-Partial/moderate assistance G. Lower body dressing 02-Substantial/maximal assistance H. Putting on/taking off footwear 88-Not attempted due to medical condition or safety concerns - Mobility A. Roll left and right 03-Partial/moderate assistance B. Sit to lying 03-Partial/moderate assistance C. Lying to sitting on side of bed 03-Partial/moderate assistance D. Sit to stand 03-Partial/moderate assistance E. Chair/bqe-wn-ofvry transfer 03-Partial/moderate assistance F. Toilet transfer 02-Substantial/maximal assistance G. Car transfer 88-Not attempted due to medical condition or safety concerns I. Walk 10 feet 88-Not attempted due to medical condition or safety concerns J. Walk 50 feet with two turns 88-Not attempted due to medical condition or safety concerns K. Walk 150 feet 88-Not attempted due to medical condition or safety concerns L. Walking 10 feet on uneven surfaces 88-Not attempted due to medical condition or safety concerns M. 1 step (curb) 88-Not attempted due to medical condition or safety concerns N. 4 steps 88-Not attempted due to medical condition or safety concerns O. 12 steps 88-Not attempted due to medical condition or safety concerns P. Picking up object 88-Not attempted due to medical condition or safety concerns R. Wheel 50 feet with two turns 88-Not attempted due to medical condition or safety concerns S. Wheel 150 feet 88-Not attempted due to medical condition or safety concerns - Bladder and Bowel Bladder continence Bowel continence - Endurance Fair - Balance Fair - Safety Awareness Fair CURRENT [facility]. DEFICITS: Self-Care, Mobility, Endurance, Balance, and Safety Awareness SIGNATURE PANEL: (CDT)
[2021-12-31] MEDS ORDERED: SIMETHICONE 80 MG TAB PO ONE (18:55)
[2021-12-31] MEDS: ATORVASTATIN 40 MG TAB PO SCH (20:07)
[2021-12-31] MEDS: MAGNES/ALUMIN/SIMET 30ML UCUP PO PRN (20:09)
[2021-12-31] MEDS: DOCUSATE NA/SENNA CONC 1 TAB PO PRN (20:27)
[2022-01-01] MEDS: MAGNESIUM OXIDE 400 MG TAB PO SCH ×2 (07:55→20:04)
[2022-01-01] MEDS: ASPIRIN EC 81 MG TAB PO SCH (07:55)
[2022-01-01] MEDS: APIXABAN 5 MG TABLET PO SCH ×2 (07:55→20:03)
[2022-01-01] MEDS: GABAPENTIN 100 MG CAP PO SCH ×2 (07:55→20:04)
[2022-01-01] MEDS: DULOXETINE 20 MG CAP PO SCH (07:55)
[2022-01-01] MEDS: ENSURE ENLIVE 237 ML CAN PO SCH ×2 (08:00→20:00)
[2022-01-01] MEDS: LIDOCAINE 4% PATCH TOP SCH (09:01)
[2022-01-01] MEDS: NICOTINE 21 MG/PAT TD SCH (09:02)
[2022-01-01] MEDS ORDERED: METOCLOPRAMIDE 5 MG TAB PO ONE (10:19)
--- NOTE | 2022-01-01 10:19 | P.RH.PN ---
Estimated Length of Stay: 18 Expected Discharge Date: 01/08/22 Discharge Disposition Plan: Home Family Support: Yes Alf Goal: Mobility, Transfers, Self Care Vital Signs: Last Vital Signs Temp 96.8 F 01/01/22 07:27 Pulse 72 01/01/22 07:27 Resp 18 01/01/22 07:27 BP 109/63 01/01/22 07:27 Pulse Ox 95 01/01/22 07:27 Laboratory: Laboratory Last Values WBC 11.0 K/uL (4.3-10.9) H D 12/31/21 05:38 RBC 4.87 M/uL (4.33-5.43) 12/31/21 05:38 Hgb 14.7 g/dL (13.6-17.9) 12/31/21 05:38 Hct 43.0 % (39.6-49.0) 12/31/21 05:38 MCV 88.2 fL (80-100) 12/31/21 05:38 MCH 30.3 pg (27.0-35.0) 12/31/21 05:38 MCHC 34.3 g/dL (32.0-36.0) 12/31/21 05:38 RDW 14.2 % (12.1-15.2) 12/31/21 05:38 Plt Count 426 K/uL (152-406) H D 12/31/21 05:38 MPV 7.1 fL (7.6-11.3) L 12/31/21 05:38 Neutrophils % 74.6 % (41.7-73.7) H 12/31/21 05:38 Lymphocytes % 12.7 % (15.3-44.8) L 12/31/21 05:38 Monocytes % 9.8 % (3.3-12.3) 12/31/21 05:38 Eosinophils % 2.3 % (0-4.4) 12/31/21 05:38 Basophils % 0.6 % (0-1.3) 12/31/21 05:38 Absolute Neutrophils 8.2 K/uL (1.8-8.0) H 12/31/21 05:38 Absolute Lymphocytes 1.4 K/uL (0.7-4.9) 12/31/21 05:38 Absolute Monocytes 1.1 K/uL (0.1-1.3) 12/31/21 05:38 Absolute Eosinophils 0.3 K/uL (0-0.5) 12/31/21 05:38 Absolute Basophils 0.1 K/uL (0-0.5) 12/31/21 05:38 Sodium 135 mmol/L (136-145) L 12/31/21 05:38 Potassium 4.6 mmol/L (3.5-5.1) 12/31/21 05:38 Chloride 100 mmol/L (98-107) 12/31/21 05:38 Carbon Dioxide 30 mmol/L (21-32) 12/31/21 05:38 Anion Gap 9.6 mEq/L (5.0-15.0) 12/31/21 05:38 BUN 24 mg/dL (7-18) H 12/31/21 05:38 Creatinine 1.60 mg/dL (0.55-1.3) H 12/31/21 05:38 Estimated GFR 66 mL/min (=/>90) L 12/24/21 04:18 Est GFR (CKD-EPI) 44 ml/min (=/>90) L 12/31/21 05:38 Glucose 108 mg/dL (74-106) H 12/31/21 05:38 POC Glucose 147 mg/dL (65-120) H 12/26/21 12:25 Calcium 9.1 mg/dL (8.5-10.1) 12/31/21 05:38 Magnesium 2.7 mg/dL (1.8-2.4) H D 12/31/21 05:38 Albumin 3.2 g/dL (3.4-5.0) L 12/31/21 05:38 Prealbumin 16.6 mg/dL (20-40) L 12/31/21 05:38 Urine Color Yellow (Yellow) 12/21/21 21:42 Urine Appearance Clear (Clear) 12/21/21 21:42 Urine pH 5.5 (5.0-7.0) 12/21/21 21:42 Ur Specific [place] 1.020 (1.005-1.030) 12/21/21 21:42 Glucose (UA)(Auto) Negative (Negative) 12/21/21 21:42 Urine Ketones Negative (Negative) 12/21/21 21:42 Urine Blood Trace-lysed (Negative) H 12/21/21 21:42 Urine Nitrite Negative (Negative) 12/21/21 21:42 Urine Bilirubin Negative (Negative) 12/21/21 21:42 Urine Urobilinogen 1.0 mg/dL (0.2-1.0) 12/21/21 21:42 Ur Leukocyte Esterase Negative (Negative) 12/21/21 21:42 Urine RBC 5-10 /HPF (NONE SEEN) H 12/21/21 21:42 Urine WBC 5-10 /HPF (<5) H 12/21/21 21:42 Ur Squamous Epith Cells <5 /HPF (NONE SEEN) 12/21/21 21:42 Ur Urothelial Cells Cancelled 12/21/21 21:26 Calcium Oxalate Crystal Cancelled 12/21/21 21:26 Uric Acid Crystals Cancelled 12/21/21 21:26 Triple Phos Crystals Cancelled 12/21/21 21:26 Other Crystals Cancelled 12/21/21 21:26 Amorphous Sediment Cancelled 12/21/21 21:26 Glitter Cells Cancelled 12/21/21 21:26 Urine Bacteria <20 /HPF (NONE SEEN) 12/21/21 21:42 Hyaline Casts Cancelled 12/21/21 21:26 Fine Granular Casts Cancelled 12/21/21 21:26 Coarse Granular Casts Cancelled 12/21/21 21:26 Waxy Casts Cancelled 12/21/21 21:26 RBC Casts Cancelled 12/21/21 21:26 WBC Casts Cancelled 12/21/21 21:26 Urine Mucus Cancelled 12/21/21 21:26 Urine Other Cancelled 12/21/21 21:26 Urine Trichomonas Cancelled 12/21/21 21:26 Urine Yeast Cancelled 12/21/21 21:26 Ur Yeast w Hyphae Cancelled 12/21/21 21:26 Urine Yeast (Budding) Cancelled 12/21/21 21:26 Urine Sperm Cancelled 12/21/21 21:26 Ur Microscopic Review Cancelled 12/21/21 21:42 Urine Culture Reflexed Not needed 12/21/21 21:42 Urine Total Volume Cancelled 12/21/21 21:26 Urine Total Protein Negative (Negative) 12/21/21 21:42 SARS-CoV-2 Rap RNA(RT-PCR) Negative (NEGATIVE) 12/27/21 08:00 Weight: 150 lb Wound Present: No Closed Surgical Incision Present: No Negative Pressure Wound Therapy Present: No Physician Update: SBA with bed mobility, 250' at CGA wheelchair. 150' with the walker and min assistance. Doing better with auditory comprehension with 2 words at an time. Improved expression. Min assistance for transfers. Mod assistance for lower body dressing. Will add check list for his ADLs. Functional Improvement: Patient continues to progress well toward reaching goals, and has showed marked physical improvement w/ tasks. Patient continues to struggle w/ motor control when fatigues sets in, and continues w/ aphasia and cognition issues. Summary: Patient's care plan and intermediate goals have been reviewed and revised as necessary. Please see the Rehabilitation Signature page for all necessary signatures.
[2022-01-01] MEDS: ACETAMINOPHEN 500 MG TAB PO PRN (15:57)
[2022-01-01] MEDS ORDERED: FLEET ENEMA ADULT PR ONE (17:25)
[2022-01-01] MEDS: ATORVASTATIN 40 MG TAB PO SCH (20:03)
[2022-01-01] MEDS: DOCUSATE NA/SENNA CONC 1 TAB PO SCH (20:04)
[2022-01-02 05:44] VITALS: BMI 23.1
--- NOTE | 2022-01-02 07:39 | RAD REPORT ---
EXAM DESCRIPTION: RAD - Abdomen 1 View (KUB) - 01/02/2022 6:36 am CLINICAL HISTORY: Constipation COMPARISON: Abdomen 1 View (KUB) dated 12/29/2021 FINDINGS/IMPRESSION: Limited due to motion. The bowel gas pattern is nonobstructive. Mild to moderat e stool burden, primarily in the rectum and at the splenic flexure.
[2022-01-02] MEDS: ENSURE ENLIVE 237 ML CAN PO SCH ×2 (08:00→20:00)
[2022-01-02] MEDS: MAGNESIUM OXIDE 400 MG TAB PO SCH ×2 (09:16→20:31)
[2022-01-02] MEDS: APIXABAN 5 MG TABLET PO SCH ×2 (09:16→20:31)
[2022-01-02] MEDS: GABAPENTIN 100 MG CAP PO SCH ×2 (09:16→20:30)
[2022-01-02] MEDS: DULOXETINE 20 MG CAP PO SCH (09:17)
[2022-01-02] MEDS: ASPIRIN EC 81 MG TAB PO SCH (09:17)
[2022-01-02] MEDS: NICOTINE 21 MG/PAT TD SCH (09:17)
[2022-01-02] MEDS: LIDOCAINE 4% PATCH TOP SCH (09:18)
--- NOTE | 2022-01-02 14:53 | EKG ---
Test Date: 2021-12-31 Test Time: 17:05:35 Outcomes Analyst: NIMO MEASUREMENT RESULTS: Intervals: Rate: 75 OH: 112 QRSD: 66 QT: 376 QTc: 419 [place]: P: 77 OH: 112 QRS: 73 T: 219 INTERPRETIVE STATEMENTS: Normal sinus rhythm Nonspecific T wave abnormality Abnormal ECG Compared to ECG 12/17/2021 18:58:40 T-wave abnormality now present Sinus bradycardia no longer present Short OH interval no longer present ST (T wave) deviation no longer present Electronically Signed On 01-02-22 14:52:26 CDT by Sarwat Hemphill
[2022-01-02] MEDS: DOCUSATE NA/SENNA CONC 1 TAB PO SCH (20:31)
[2022-01-02] MEDS: ATORVASTATIN 40 MG TAB PO SCH (20:31)
[2022-01-03] MEDS: ENSURE ENLIVE 237 ML CAN PO SCH ×2 (08:00→20:00)
[2022-01-03] MEDS: LIDOCAINE 4% PATCH TOP SCH (08:54)
[2022-01-03] MEDS: NICOTINE 21 MG/PAT TD SCH (08:54)
[2022-01-03] MEDS: ASPIRIN EC 81 MG TAB PO SCH (08:56)
[2022-01-03] MEDS: APIXABAN 5 MG TABLET PO SCH ×2 (08:56→20:15)
[2022-01-03] MEDS: MAGNESIUM OXIDE 400 MG TAB PO SCH ×2 (08:56→20:15)
[2022-01-03] MEDS: DULOXETINE 20 MG CAP PO SCH (08:56)
[2022-01-03] MEDS: GABAPENTIN 100 MG CAP PO SCH ×2 (08:56→20:15)
[2022-01-03] MEDS: DOCUSATE NA/SENNA CONC 1 TAB PO SCH (20:15)
[2022-01-03] MEDS: ATORVASTATIN 40 MG TAB PO SCH (20:15)
[2022-01-04] MEDS: DULOXETINE 20 MG CAP PO SCH (07:09)
[2022-01-04] MEDS: GABAPENTIN 100 MG CAP PO SCH ×2 (07:09→20:38)
[2022-01-04] MEDS: APIXABAN 5 MG TABLET PO SCH ×2 (07:09→20:38)
[2022-01-04] MEDS: ASPIRIN EC 81 MG TAB PO SCH (07:09)
[2022-01-04] MEDS: MAGNESIUM OXIDE 400 MG TAB PO SCH ×2 (07:15→20:38)
[2022-01-04] MEDS: ENSURE ENLIVE 237 ML CAN PO SCH ×2 (07:15→20:00)
[2022-01-04] MEDS: ACETAMINOPHEN 500 MG TAB PO PRN ×2 (09:29→13:54)
[2022-01-04] MEDS: LIDOCAINE 4% PATCH TOP SCH (13:22)
[2022-01-04] MEDS: NICOTINE 21 MG/PAT TD SCH (13:23)
[2022-01-04] MEDS ORDERED: DIVALPROEX ER 250 MG TAB PO SCH (14:15)
[2022-01-04] MEDS: DIVALPROEX ER 250 MG TAB PO SCH (15:02)
--- NOTE | 2022-01-04 19:04 | R.PN ---
PROGRESS NOTES ENCOUNTER DATE AND TIME: 01/04/2022 19:00 (CDT) NAME ANURADHA MELENDEZ DATE OF : 1945 DATE OF ADMISSION: 12/21/2021 12:20 (CDT) ISCHEMIC CVACHIEF COMPLAINT: Left temporoparietal stroke, right sided weakness and aphasia SUBJECTIVE: Pt denied any depression. Pt denied any Shortness of Breath. Glucose 147. CBC with differential is unremarkable except WBC 11.0, Plt 426. Prealbumin 16.6, Creati nine 1.60. Urine culture is negative. Ambulated 125' with minimum assistance using a rolling walker. Expression and comprehension done with 91% accuracy. KUB diffuse mild to moderate ileus is suspected. Reglan PRN. Simethicone 80 mg x . VITAL SIGNS Temperature: 97.5 F SBP/DBP: 112/74 Pulse: 72 Resp: 16 MEDICATION ALLERGIES: No Known Drug Allergies (NKDA) ENVIRONMENTAL ALLERGIES: - Substance Allergies None Known - Other Allergies None Known NURSING: - Shower allowing shower - Bladder care per protocol - Skin care per protocol PRECAUTIONS: - Weight Bearing Precaution WBAT right LE ACTIVITIES OOB only with supervision THERAPIES: - Dietary and Nutrition Adequate Nutrition. Nutritional Education. Nutritional Supplements. Evaluate and Treat. - Occupational Therapy Cognitive Retraining. Patient needs Occupational Therapy for a daily minimum of 1.5 hours at least 5 out of 7 days, to improve Activities of Daily Living, including: Eating, Grooming, Bathing, Dressing, Toileting, Toilet Transfers, Community Reintegration, Higher functional activities, Adaptive Equipme nt, Splinting, Household Tasks, and Other activities as determined. Visual Perceptual Training. ADL T raining. Patient/Family Education. Safety Awareness. Evaluate and Treat. Household Tasks. - Speech Therapy Cognitive Training. Expressive Language Skills. Memory Strategies. Patient needs Speech Therapy for a daily minimum of 1.5 hours at least 5 out of 7 days, to improve: Swallowing, Cognition, Language Ski lls, and Compensatory Strategies. Receptive Language Skills. Speech Intelligibility Training. Evaluat e and Treat. - Physical Therapy Patient needs Physical Therapy for a daily minimum of 1.5 hours at least 5 out of 7 days, to improve: Mobility, Strengthening, Transfers, Stretching, ROM, Endurance, Ability to manage stairs, Gait, and Balance. Balance Training. Evaluate and Treat. Gait Training. Patient/Family Education. Safety Awaren ess. Transfer Training. LE Strengthening. PHYSICAL EXAM - Gen Alert and awake Lying in bed No apparent distress Oriented to: person, time, and place - Skin No skin breakdown. No abnormalities - Eyes No abnormalities - ENMT No abnormalities - Neck No abnormalities - CVS RRR - Chest mild decrease in breath sounds - Resp Course lungs bilaterally - Abd Soft - GI + bowel sounds Deferred - No abnormalities - Ext No significant edema - MSK 4+/5 weakness in right upper and lower extremities - Neuro 4+/5 weakness in right upper and lower extremities and right sided numbness. - Psych No abnormalities ASSESSMENT: Pt. is a 76 yo Right-handed male.On 12/17/2021 Pt. presented to [facility] with sudden o nset of right-side weakness.On 12/17/2021 he was admitted to [facility] with diagnosis I SCHEMIC CVA.His impairment category is Stroke 01 - Right Body (Left Brain) (01.2).Pre-morbidly, Pt. was independent/mod-I in Locomotion, Safety Awareness, Social Cognition, Balance, and Transfers Contr ol; and he had good Sphincter Control, Self-Care, Communication, and Endurance.Currently, he has defi cits of Locomotion, Social Cognition, Safety Awareness, Balance, Transfers Control, Sphincter Control , Self-Care, Endurance, and Communication.Pt. is now referred to [facility] fo r acute in-patient rehabilitation in order to maximize patient's functional independence in activitie s of daily living, strength, ROM, and mobility.- Rehab Goal Patient has realistic goal of being discharged at assistance level 7-Ind to reside at Home with Pt s elf. MDM/PLAN: - Physical Therapy Gait dysfunction - to improve, our physical therapists will perform initial evaluation of pt's statu s upon admission and devise an individualized program for Gait Training, and Wheel Chair mobility Inability to transfer - to improve, our physical therapists will perform initial evaluation of pt's status upon admission and devise an individualized program for Bed mobility Need for home safety evaluation - to improve, our physical therapists will perform initial evaluatio n of pt's status upon admission and devise an individualized program for Home Evaluation Need in caregiver upon discharge - to improve, our physical therapists will perform initial evaluati on of pt's status upon admission and devise an individualized program for Caregiver Training New precaution - to improve, our physical therapists will perform initial evaluation of pt's status upon admission and devise an individualized program for Patient precaution education Edema - to improve, our physical therapists will perform initial evaluation of pt's status upon admi ssion and devise an individualized program for Elevation Training, and Lymphedema Therapy Poor balance - to improve, our physical therapists will perform initial evaluation of pt's status up on admission and devise an individualized program for Balance Training Poor endurance - to improve, our physical therapists will perform initial evaluation of pt's status upon admission and devise an individualized program for Endurance Training Weakness - to improve, our physical therapists will perform initial evaluation of pt's status upon a dmission and devise an individualized program for Aquatic Therapy, Neuromuscular Reeducation, and Str engthening Achieving independence - to improve, our physical therapists will perform initial evaluation of pt's status upon admission and devise an individualized program for Community Reintegration Activities - Occupational Therapy ADL deficits - to improve, our occupation therapists will perform initial evaluation of pt's status upon admission and devise an individualized program for Bathing, Bed mobility, Community Reintegratio n, Cooking, Dressing, Eating, Fine Motor Skills, Grooming, Homemaking, Kitchen Mobility, Laundry, Pat ient Education, Safety Awareness, Splinting - Positioning, Transfers(Toilet, Tub, Shower), and Wheel Chair Management Cognitive deficits - to improve, our occupation therapists will perform initial evaluation of pt's s tatus upon admission and devise an individualized program for Cognition - orientation Need for home care associate - to improve, our occupation therapists will perform initial evaluation of pt's status upon admission and devise an individualized program for Caregiver Training Weakness - to improve, our occupation therapists will perform initial evaluation of pt's status upon admission and devise an individualized program for Aquatic Therapy, Balance, Endurance, UE ROM, and UE strengthening - Other See attached MAR (Medication Administration Record) - Diet Type Continue Regular - Diet - Liquid Texture Continue Regular - Tube Feed Continue N/A - Bladder care per protocol - Weight Bearing Precaution WBAT right LE - Skin care per protocol - Diet - Solid Texture Continue Regular - Shower allowing shower for Dementia, TBI, Stroke, or others FUNCTIONAL STATUS: UPDATED AT WEEKLY TEAM CONFERENCE - Bladder Same accident frequency: 7-Ind - No accidents in the past 7 days - Bowel Same accident frequency: 7-Ind - No accidents in the past 7 days - Walking Same score based on distance walked: 0(N/A) Same score based on distance walked: 1(<=50ft) - Wheelchair Same score based on distance traveled: 0(N/A) FUNCTIONAL STATUS: - Self-Care A. Eating sup B. Grooming Regina C. Bathing maxA D. Dressing - Upper Regina E. Dressing - Lower maxA F. Toileting modA - Sphincter Control G. Bladder control Regina H. Bowel control Regina - Transfers Control I. Bed/Chair/Wheelchair modA J. Toilet modA K. Tub/Shower modA - Locomotion L. Walk/Wheelchair (B) maxA M. Stairs ADNO - Communication N. Comprehension (B) modA O. Expression (B) maxA - Social Cognition P. Social Interaction modA Q. Problem Solving maxA R. Memory modA - Endurance Poor - Balance Poor - Safety Awareness Poor QI SCORES: - Self-Care A. Eating 03-Partial/moderate assistance B. Oral hygiene 02-Substantial/maximal assistance C. Toileting hygiene 02-Substantial/maximal assistance E. Shower/bathe self 02-Substantial/maximal assistance F. Upper body dressing 03-Partial/moderate assistance G. Lower body dressing 02-Substantial/maximal assistance H. Putting on/taking off footwear 88-Not attempted due to medical condition or safety concerns - Mobility A. Roll left and right 03-Partial/moderate assistance B. Sit to lying 03-Partial/moderate assistance C. Lying to sitting on side of bed 03-Partial/moderate assistance D. Sit to stand 03-Partial/moderate assistance E. Chair/whm-ro-doros transfer 03-Partial/moderate assistance F. Toilet transfer 02-Substantial/maximal assistance G. Car transfer 88-Not attempted due to medical condition or safety concerns I. Walk 10 feet 88-Not attempted due to medical condition or safety concerns J. Walk 50 feet with two turns 88-Not attempted due to medical condition or safety concerns K. Walk 150 feet 88-Not attempted due to medical condition or safety concerns L. Walking 10 feet on uneven surfaces 88-Not attempted due to medical condition or safety concerns M. 1 step (curb) 88-Not attempted due to medical condition or safety concerns N. 4 steps 88-Not attempted due to medical condition or safety concerns O. 12 steps 88-Not attempted due to medical condition or safety concerns P. Picking up object 88-Not attempted due to medical condition or safety concerns R. Wheel 50 feet with two turns 88-Not attempted due to medical condition or safety concerns S. Wheel 150 feet 88-Not attempted due to medical condition or safety concerns - Bladder and Bowel Bladder continence Bowel continence - Endurance Fair - Balance Fair - Safety Awareness Fair CURRENT [facility]. DEFICITS: Self-Care, Mobility, Endurance, Balance, and Safety Awareness SIGNATURE PANEL: (CDT)
[2022-01-04] MEDS: ATORVASTATIN 40 MG TAB PO SCH (20:38)
[2022-01-04] MEDS: DOCUSATE NA/SENNA CONC 1 TAB PO SCH (20:38)
[2022-01-05] MEDS: NICOTINE 21 MG/PAT TD SCH (07:09)
[2022-01-05] MEDS: LIDOCAINE 4% PATCH TOP SCH (07:10)
[2022-01-05] MEDS: DIVALPROEX ER 250 MG TAB PO SCH (07:51)
[2022-01-05] MEDS: GABAPENTIN 100 MG CAP PO SCH ×2 (07:51→20:13)
[2022-01-05] MEDS: APIXABAN 5 MG TABLET PO SCH ×2 (07:51→20:14)
[2022-01-05] MEDS: ASPIRIN EC 81 MG TAB PO SCH (07:51)
[2022-01-05] MEDS: MAGNESIUM OXIDE 400 MG TAB PO SCH ×2 (07:51→20:14)
[2022-01-05] MEDS: DULOXETINE 20 MG CAP PO SCH (07:51)
[2022-01-05] MEDS ORDERED: DIVALPROEX ER 250 MG TAB PO SCH (08:00)
[2022-01-05] MEDS: ENSURE ENLIVE 237 ML CAN PO SCH ×2 (08:00→20:00)
--- NOTE | 2022-01-05 18:09 | R.PN ---
PROGRESS NOTES ENCOUNTER DATE AND TIME: 01/05/2022 18:05 (CDT) NAME ANURADHA MELENDEZ DATE OF : 1945 DATE OF ADMISSION: 12/21/2021 12:20 (CDT) ISCHEMIC CVACHIEF COMPLAINT: Left temporoparietal stroke, right sided weakness and aphasia SUBJECTIVE: Pt denied any depression. Pt denied any Shortness of Breath. Glucose 147. CBC with differential is unremarkable except WBC 11.0, Plt 426. Prealbumin 16.6, Creati nine 1.60. Urine culture is negative. Ambulated 125' with minimum assistance using a rolling walker. Expression and comprehension done with 91% accuracy. Repeat KUB 01/02/22 shows nonobstructive bowel gas pattern. Reglan PRN. Simethicone 80 mg x one . VITAL SIGNS Temperature: 97.6 F SBP/DBP: 120/79 Pulse: 73 Resp: 16 MEDICATION ALLERGIES: No Known Drug Allergies (NKDA) ENVIRONMENTAL ALLERGIES: - Substance Allergies None Known - Other Allergies None Known NURSING: - Shower allowing shower - Bladder care per protocol - Skin care per protocol PRECAUTIONS: - Weight Bearing Precaution WBAT right LE ACTIVITIES OOB only with supervision THERAPIES: - Dietary and Nutrition Adequate Nutrition. Nutritional Education. Nutritional Supplements. Evaluate and Treat. - Occupational Therapy Cognitive Retraining. Patient needs Occupational Therapy for a daily minimum of 1.5 hours at least 5 out of 7 days, to improve Activities of Daily Living, including: Eating, Grooming, Bathing, Dressing, Toileting, Toilet Transfers, Community Reintegration, Higher functional activities, Adaptive Equipme nt, Splinting, Household Tasks, and Other activities as determined. Visual Perceptual Training. ADL T raining. Patient/Family Education. Safety Awareness. Evaluate and Treat. Household Tasks. - Speech Therapy Cognitive Training. Expressive Language Skills. Memory Strategies. Patient needs Speech Therapy for a daily minimum of 1.5 hours at least 5 out of 7 days, to improve: Swallowing, Cognition, Language Ski lls, and Compensatory Strategies. Receptive Language Skills. Speech Intelligibility Training. Evaluat e and Treat. - Physical Therapy Patient needs Physical Therapy for a daily minimum of 1.5 hours at least 5 out of 7 days, to improve: Mobility, Strengthening, Transfers, Stretching, ROM, Endurance, Ability to manage stairs, Gait, and Balance. Balance Training. Evaluate and Treat. Gait Training. Patient/Family Education. Safety Awaren ess. Transfer Training. LE Strengthening. PHYSICAL EXAM - Gen Alert and awake Lying in bed No apparent distress Oriented to: person, time, and place - Skin No skin breakdown. No abnormalities - Eyes No abnormalities - ENMT No abnormalities - Neck No abnormalities - CVS RRR - Chest mild decrease in breath sounds - Resp Course lungs bilaterally - Abd Soft - GI + bowel sounds Deferred - No abnormalities - Ext No significant edema - MSK 4+/5 weakness in right upper and lower extremities - Neuro 4+/5 weakness in right upper and lower extremities and right sided numbness. - Psych No abnormalities ASSESSMENT: Pt. is a 76 yo Right-handed male.On 12/17/2021 Pt. presented to [facility] with sudden o nset of right-side weakness.On 12/17/2021 he was admitted to [facility] with diagnosis I SCHEMIC CVA.His impairment category is Stroke 01 - Right Body (Left Brain) (01.2).Pre-morbidly, Pt. was independent/mod-I in Locomotion, Safety Awareness, Social Cognition, Balance, and Transfers Contr ol; and he had good Sphincter Control, Self-Care, Communication, and Endurance.Currently, he has defi cits of Locomotion, Social Cognition, Safety Awareness, Balance, Transfers Control, Sphincter Control , Self-Care, Endurance, and Communication.Pt. is now referred to [facility] fo r acute in-patient rehabilitation in order to maximize patient's functional independence in activitie s of daily living, strength, ROM, and mobility.- Rehab Goal Patient has realistic goal of being discharged at assistance level 7-Ind to reside at Home with Pt s elf. MDM/PLAN: - Physical Therapy Gait dysfunction - to improve, our physical therapists will perform initial evaluation of pt's statu s upon admission and devise an individualized program for Gait Training, and Wheel Chair mobility Inability to transfer - to improve, our physical therapists will perform initial evaluation of pt's status upon admission and devise an individualized program for Bed mobility Need for home safety evaluation - to improve, our physical therapists will perform initial evaluatio n of pt's status upon admission and devise an individualized program for Home Evaluation Need in caregiver upon discharge - to improve, our physical therapists will perform initial evaluati on of pt's status upon admission and devise an individualized program for Caregiver Training New precaution - to improve, our physical therapists will perform initial evaluation of pt's status upon admission and devise an individualized program for Patient precaution education Edema - to improve, our physical therapists will perform initial evaluation of pt's status upon admi ssion and devise an individualized program for Elevation Training, and Lymphedema Therapy Poor balance - to improve, our physical therapists will perform initial evaluation of pt's status up on admission and devise an individualized program for Balance Training Poor endurance - to improve, our physical therapists will perform initial evaluation of pt's status upon admission and devise an individualized program for Endurance Training Weakness - to improve, our physical therapists will perform initial evaluation of pt's status upon a dmission and devise an individualized program for Aquatic Therapy, Neuromuscular Reeducation, and Str engthening Achieving independence - to improve, our physical therapists will perform initial evaluation of pt's status upon admission and devise an individualized program for Community Reintegration Activities - Occupational Therapy ADL deficits - to improve, our occupation therapists will perform initial evaluation of pt's status upon admission and devise an individualized program for Bathing, Bed mobility, Community Reintegratio n, Cooking, Dressing, Eating, Fine Motor Skills, Grooming, Homemaking, Kitchen Mobility, Laundry, Pat ient Education, Safety Awareness, Splinting - Positioning, Transfers(Toilet, Tub, Shower), and Wheel Chair Management Cognitive deficits - to improve, our occupation therapists will perform initial evaluation of pt's s tatus upon admission and devise an individualized program for Cognition - orientation Need for health care sanitary technician - to improve, our occupation therapists will perform initial evaluation of pt's status upon admission and devise an individualized program for Caregiver Training Weakness - to improve, our occupation therapists will perform initial evaluation of pt's status upon admission and devise an individualized program for Aquatic Therapy, Balance, Endurance, UE ROM, and UE strengthening - Other See attached MAR (Medication Administration Record) - Diet Type Continue Regular - Diet - Liquid Texture Continue Regular - Tube Feed Continue N/A - Bladder care per protocol - Weight Bearing Precaution WBAT right LE - Skin care per protocol - Diet - Solid Texture Continue Regular - Shower allowing shower for Dementia, TBI, Stroke, or others FUNCTIONAL STATUS: UPDATED AT WEEKLY TEAM CONFERENCE - Bladder Same accident frequency: 7-Ind - No accidents in the past 7 days - Bowel Same accident frequency: 7-Ind - No accidents in the past 7 days - Walking Same score based on distance walked: 0(N/A) Same score based on distance walked: 1(<=50ft) - Wheelchair Same score based on distance traveled: 0(N/A) FUNCTIONAL STATUS: - Self-Care A. Eating sup B. Grooming Regina C. Bathing maxA D. Dressing - Upper Regina E. Dressing - Lower maxA F. Toileting modA - Sphincter Control G. Bladder control Regina H. Bowel control Regina - Transfers Control I. Bed/Chair/Wheelchair modA J. Toilet modA K. Tub/Shower modA - Locomotion L. Walk/Wheelchair (B) maxA M. Stairs ADNO - Communication N. Comprehension (B) modA O. Expression (B) maxA - Social Cognition P. Social Interaction modA Q. Problem Solving maxA R. Memory modA - Endurance Poor - Balance Poor - Safety Awareness Poor QI SCORES: - Self-Care A. Eating 03-Partial/moderate assistance B. Oral hygiene 02-Substantial/maximal assistance C. Toileting hygiene 02-Substantial/maximal assistance E. Shower/bathe self 02-Substantial/maximal assistance F. Upper body dressing 03-Partial/moderate assistance G. Lower body dressing 02-Substantial/maximal assistance H. Putting on/taking off footwear 88-Not attempted due to medical condition or safety concerns - Mobility A. Roll left and right 03-Partial/moderate assistance B. Sit to lying 03-Partial/moderate assistance C. Lying to sitting on side of bed 03-Partial/moderate assistance D. Sit to stand 03-Partial/moderate assistance E. Chair/eyi-ex-qlqau transfer 03-Partial/moderate assistance F. Toilet transfer 02-Substantial/maximal assistance G. Car transfer 88-Not attempted due to medical condition or safety concerns I. Walk 10 feet 88-Not attempted due to medical condition or safety concerns J. Walk 50 feet with two turns 88-Not attempted due to medical condition or safety concerns K. Walk 150 feet 88-Not attempted due to medical condition or safety concerns L. Walking 10 feet on uneven surfaces 88-Not attempted due to medical condition or safety concerns M. 1 step (curb) 88-Not attempted due to medical condition or safety concerns N. 4 steps 88-Not attempted due to medical condition or safety concerns O. 12 steps 88-Not attempted due to medical condition or safety concerns P. Picking up object 88-Not attempted due to medical condition or safety concerns R. Wheel 50 feet with two turns 88-Not attempted due to medical condition or safety concerns S. Wheel 150 feet 88-Not attempted due to medical condition or safety concerns - Bladder and Bowel Bladder continence Bowel continence - Endurance Fair - Balance Fair - Safety Awareness Fair CURRENT [facility]. DEFICITS: Self-Care, Mobility, Endurance, Balance, and Safety Awareness SIGNATURE PANEL: (CDT)
[2022-01-05] MEDS: DOCUSATE NA/SENNA CONC 1 TAB PO SCH (20:14)
[2022-01-05] MEDS: ATORVASTATIN 40 MG TAB PO SCH (20:14)
[2022-01-06] MEDS: DIVALPROEX ER 250 MG TAB PO SCH ×2 (07:02→19:29)
[2022-01-06] MEDS: ASPIRIN EC 81 MG TAB PO SCH (07:26)
[2022-01-06] MEDS: DULOXETINE 20 MG CAP PO SCH (07:26)
[2022-01-06] MEDS: GABAPENTIN 100 MG CAP PO SCH ×2 (07:26→19:29)
[2022-01-06] MEDS: MAGNESIUM OXIDE 400 MG TAB PO SCH ×2 (07:26→19:30)
[2022-01-06] MEDS: APIXABAN 5 MG TABLET PO SCH ×2 (07:26→19:29)
[2022-01-06] MEDS: ENSURE ENLIVE 237 ML CAN PO SCH ×2 (08:00→19:30)
[2022-01-06] MEDS: ACETAMINOPHEN 500 MG TAB PO PRN (13:54)
[2022-01-06] MEDS: LIDOCAINE 4% PATCH TOP SCH (13:55)
[2022-01-06] MEDS: NICOTINE 21 MG/PAT TD SCH (13:55)
[2022-01-06] MEDS: DOCUSATE NA/SENNA CONC 1 TAB PO SCH (19:29)
[2022-01-06] MEDS: ATORVASTATIN 40 MG TAB PO SCH (19:30)
--- NOTE | 2022-01-06 20:36 | R.PN ---
PROGRESS NOTES ENCOUNTER DATE AND TIME: 01/06/2022 20:33 (CDT) NAME ANURADHA MELENDEZ DATE OF : 1945 DATE OF ADMISSION: 12/21/2021 12:20 (CDT) ISCHEMIC CVACHIEF COMPLAINT: Left temporoparietal stroke, right sided weakness and aphasia SUBJECTIVE: Pt denied any depression. Pt denied any Shortness of Breath. Glucose 147. CBC with differential is unremarkable except WBC 11.0, Plt 426. Prealbumin 16.6, Creati nine 1.60. Urine culture is negative. Ambulated 230' with minimum assistance using a rolling walker. Propelled wheelchair 250' with contact guard assistance. Expression and comprehension done with 91% accuracy. Repeat KUB 01/02/22 shows nonobstructive bowel gas pattern. Reglan PRN. Simethicone 80 mg x one . VITAL SIGNS Temperature: 97.2 F SBP/DBP: 110/62 Pulse: 84 Resp: 16 MEDICATION ALLERGIES: No Known Drug Allergies (NKDA) ENVIRONMENTAL ALLERGIES: - Substance Allergies None Known - Other Allergies None Known NURSING: - Shower allowing shower - Bladder care per protocol - Skin care per protocol PRECAUTIONS: - Weight Bearing Precaution WBAT right LE ACTIVITIES OOB only with supervision THERAPIES: - Dietary and Nutrition Adequate Nutrition. Nutritional Education. Nutritional Supplements. Evaluate and Treat. - Occupational Therapy Cognitive Retraining. Patient needs Occupational Therapy for a daily minimum of 1.5 hours at least 5 out of 7 days, to improve Activities of Daily Living, including: Eating, Grooming, Bathing, Dressing, Toileting, Toilet Transfers, Community Reintegration, Higher functional activities, Adaptive Equipme nt, Splinting, Household Tasks, and Other activities as determined. Visual Perceptual Training. ADL T raining. Patient/Family Education. Safety Awareness. Evaluate and Treat. Household Tasks. - Speech Therapy Cognitive Training. Expressive Language Skills. Memory Strategies. Patient needs Speech Therapy for a daily minimum of 1.5 hours at least 5 out of 7 days, to improve: Swallowing, Cognition, Language Ski lls, and Compensatory Strategies. Receptive Language Skills. Speech Intelligibility Training. Evaluat e and Treat. - Physical Therapy Patient needs Physical Therapy for a daily minimum of 1.5 hours at least 5 out of 7 days, to improve: Mobility, Strengthening, Transfers, Stretching, ROM, Endurance, Ability to manage stairs, Gait, and Balance. Balance Training. Evaluate and Treat. Gait Training. Patient/Family Education. Safety Awaren ess. Transfer Training. LE Strengthening. PHYSICAL EXAM - Gen Alert and awake Lying in bed No apparent distress Oriented to: person, time, and place - Skin No skin breakdown. No abnormalities - Eyes No abnormalities - ENMT No abnormalities - Neck No abnormalities - CVS RRR - Chest mild decrease in breath sounds - Resp Course lungs bilaterally - Abd Soft - GI + bowel sounds Deferred - No abnormalities - Ext No significant edema - MSK 4+/5 weakness in right upper and lower extremities - Neuro 4+/5 weakness in right upper and lower extremities and right sided numbness. - Psych No abnormalities ASSESSMENT: Pt. is a 76 yo Right-handed male.On 12/17/[address] [facility] with sudden o nset of right-side weakness.On 12/17/2021 he was admitted to [facility] with diagnosis I SCHEMIC CVA.His impairment category is Stroke 01 - Right Body (Left Brain) (01.2).Pre-morbidly, Pt. was independent/mod-I in Locomotion, Safety Awareness, Social Cognition, Balance, and Transfers Contr ol; and he had good Sphincter Control, Self-Care, Communication, and Endurance.Currently, he has defi cits of Locomotion, Social Cognition, Safety Awareness, Balance, Transfers Control, Sphincter Control , Self-Care, Endurance, and Communication.Pt. is now referred to [facility] fo r acute in-patient rehabilitation in order to maximize patient's functional independence in activitie s of daily living, strength, ROM, and mobility.- Rehab Goal Patient has realistic goal of being discharged at assistance level 7-Ind to reside at Home with Pt s elf. MDM/PLAN: - Physical Therapy Gait dysfunction - to improve, our physical therapists will perform initial evaluation of pt's statu s upon admission and devise an individualized program for Gait Training, and Wheel Chair mobility Inability to transfer - to improve, our physical therapists will perform initial evaluation of pt's status upon admission and devise an individualized program for Bed mobility Need for home safety evaluation - to improve, our physical therapists will perform initial evaluatio n of pt's status upon admission and devise an individualized program for Home Evaluation Need in caregiver upon discharge - to improve, our physical therapists will perform initial evaluati on of pt's status upon admission and devise an individualized program for Caregiver Training New precaution - to improve, our physical therapists will perform initial evaluation of pt's status upon admission and devise an individualized program for Patient precaution education Edema - to improve, our physical therapists will perform initial evaluation of pt's status upon admi ssion and devise an individualized program for Elevation Training, and Lymphedema Therapy Poor balance - to improve, our physical therapists will perform initial evaluation of pt's status up on admission and devise an individualized program for Balance Training Poor endurance - to improve, our physical therapists will perform initial evaluation of pt's status upon admission and devise an individualized program for Endurance Training Weakness - to improve, our physical therapists will perform initial evaluation of pt's status upon a dmission and devise an individualized program for Aquatic Therapy, Neuromuscular Reeducation, and Str engthening Achieving independence - to improve, our physical therapists will perform initial evaluation of pt's status upon admission and devise an individualized program for Community Reintegration Activities - Occupational Therapy ADL deficits - to improve, our occupation therapists will perform initial evaluation of pt's status upon admission and devise an individualized program for Bathing, Bed mobility, Community Reintegratio n, Cooking, Dressing, Eating, Fine Motor Skills, Grooming, Homemaking, Kitchen Mobility, Laundry, Pat ient Education, Safety Awareness, Splinting - Positioning, Transfers(Toilet, Tub, Shower), and Wheel Chair Management Cognitive deficits - to improve, our occupation therapists will perform initial evaluation of pt's s tatus upon admission and devise an individualized program for Cognition - orientation Need for youth care professional - to improve, our occupation therapists will perform initial evaluation of pt's status upon admission and devise an individualized program for Caregiver Training Weakness - to improve, our occupation therapists will perform initial evaluation of pt's status upon admission and devise an individualized program for Aquatic Therapy, Balance, Endurance, UE ROM, and UE strengthening - Other See attached MAR (Medication Administration Record) - Diet Type Continue Regular - Diet - Liquid Texture Continue Regular - Tube Feed Continue N/A - Bladder care per protocol - Weight Bearing Precaution WBAT right LE - Skin care per protocol - Diet - Solid Texture Continue Regular - Shower allowing shower for Dementia, TBI, Stroke, or others FUNCTIONAL STATUS: UPDATED AT WEEKLY TEAM CONFERENCE - Bladder Same accident frequency: 7-Ind - No accidents in the past 7 days - Bowel Same accident frequency: 7-Ind - No accidents in the past 7 days - Walking Same score based on distance walked: 0(N/A) Same score based on distance walked: 1(<=50ft) - Wheelchair Same score based on distance traveled: 0(N/A) FUNCTIONAL STATUS: - Self-Care A. Eating sup B. Grooming [place] C. Bathing maxA D. Dressing - Upper [place] E. Dressing - Lower maxA F. Toileting modA - Sphincter Control G. Bladder control Regina H. Bowel control Reg[place] - Transfers Control I. Bed/Chair/Wheelchair modA J. Toilet modA K. Tub/Shower modA - Locomotion L. Walk/Wheelchair (B) maxA M. Stairs ADNO - Communication N. Comprehension (B) modA O. Expression (B) maxA - Social Cognition P. Social Interaction modA Q. Problem Solving maxA R. Memory modA - Endurance Poor - Balance Poor - Safety Awareness Poor QI SCORES: - Self-Care A. Eating 03-Partial/moderate assistance B. Oral hygiene 02-Substantial/maximal assistance C. Toileting hygiene 02-Substantial/maximal assistance E. Shower/bathe self 02-Substantial/maximal assistance F. Upper body dressing 03-Partial/moderate assistance G. Lower body dressing 02-Substantial/maximal assistance H. Putting on/taking off footwear 88-Not attempted due to medical condition or safety concerns - Mobility A. Roll left and right 03-Partial/moderate assistance B. Sit to lying 03-Partial/moderate assistance C. Lying to sitting on side of bed 03-Partial/moderate assistance D. Sit to stand 03-Partial/moderate assistance E. Chair/gcd-tf-abiws transfer 03-Partial/moderate assistance F. Toilet transfer 02-Substantial/maximal assistance G. Car transfer 88-Not attempted due to medical condition or safety concerns I. Walk 10 feet 88-Not attempted due to medical condition or safety concerns J. Walk 50 feet with two turns 88-Not attempted due to medical condition or safety concerns K. Walk 150 feet 88-Not attempted due to medical condition or safety concerns L. Walking 10 feet on uneven surfaces 88-Not attempted due to medical condition or safety concerns M. 1 step (curb) 88-Not attempted due to medical condition or safety concerns N. 4 steps 88-Not attempted due to medical condition or safety concerns O. 12 steps 88-Not attempted due to medical condition or safety concerns P. Picking up object 88-Not attempted due to medical condition or safety concerns R. Wheel 50 feet with two turns 88-Not attempted due to medical condition or safety concerns S. Wheel 150 feet 88-Not attempted due to medical condition or safety concerns - Bladder and Bowel Bladder continence Bowel continence - Endurance Fair - Balance Fair - Safety Awareness Fair [facility]. DEFICITS: Self-Care, Mobility, Endurance, Balance, and Safety Awareness SIGNATURE PANEL: (CDT)
[2022-01-07 06:15] LABS: Absolute Lymphocytes (CBC) 1.7 K/uL (0.7-4.9); Lymphocytes % 15.2 % (15.3-44.8); MPV 6.9 fL (7.6-11.3); RBC Red Blood Cell Count 4.77 M/uL (4.33-5.43)
[2022-01-07 06:37] LABS: Albumin 2.9 g/dL (3.4-5.0); Magnesium 2.2 mg/dL (1.8-2.4); Potassium 4.8 mmol/L (3.5-5.1); Prealbumin 14.1 mg/dL (20-40)
[2022-01-07] MEDS: APIXABAN 5 MG TABLET PO SCH ×2 (07:47→19:53)
[2022-01-07] MEDS: ENSURE ENLIVE 237 ML CAN PO SCH ×2 (08:00→19:54)
[2022-01-07] MEDS: NICOTINE 21 MG/PAT TD SCH (08:31)
[2022-01-07] MEDS: LIDOCAINE 4% PATCH TOP SCH (08:31)
[2022-01-07] MEDS: GABAPENTIN 100 MG CAP PO SCH (08:31)
[2022-01-07] MEDS: MAGNESIUM OXIDE 400 MG TAB PO SCH ×2 (08:31→19:54)
[2022-01-07] MEDS: DULOXETINE 20 MG CAP PO SCH (08:32)
[2022-01-07] MEDS: ASPIRIN EC 81 MG TAB PO SCH (08:32)
--- NOTE | 2022-01-07 10:13 | P.RH.PN ---
Estimated Length of Stay: 18 Expected Discharge Date: 01/08/22 Discharge Disposition Plan: Home Family Support: Yes Group Home Goal: Mobility, Transfers, Self Care Vital Signs: Last Vital Signs Temp 97.9 F 01/07/22 07:17 Pulse 78 01/07/22 07:17 Resp 18 01/07/22 07:17 BP 104/64 01/07/22 07:17 Pulse Ox 93 01/07/22 07:17 Laboratory: Laboratory Last Values WBC 11.2 K/uL (4.3-10.9) H 01/07/22 05:44 RBC 4.77 M/uL (4.33-5.43) 01/07/22 05:44 Hgb 14.5 g/dL (13.6-17.9) 01/07/22 05:44 Hct 42.0 % (39.6-49.0) 01/07/22 05:44 MCV 87.9 fL (80-100) 01/07/22 05:44 MCH 30.5 pg (27.0-35.0) 01/07/22 05:44 MCHC 34.7 g/dL (32.0-36.0) 01/07/22 05:44 RDW 14.0 % (12.1-15.2) 01/07/22 05:44 Plt Count 377 K/uL (152-406) 01/07/22 05:44 MPV 6.9 fL (7.6-11.3) L 01/07/22 05:44 Neutrophils % 71.0 % (41.7-73.7) 01/07/22 05:44 Lymphocytes % 15.2 % (15.3-44.8) L 01/07/22 05:44 Monocytes % 10.6 % (3.3-12.3) 01/07/22 05:44 Eosinophils % 2.5 % (0-4.4) 01/07/22 05:44 Basophils % 0.7 % (0-1.3) 01/07/22 05:44 Absolute Neutrophils 8.0 K/uL (1.8-8.0) 01/07/22 05:44 Absolute Lymphocytes 1.7 K/uL (0.7-4.9) 01/07/22 05:44 Absolute Monocytes 1.2 K/uL (0.1-1.3) 01/07/22 05:44 Absolute Eosinophils 0.3 K/uL (0-0.5) 01/07/22 05:44 Absolute Basophils 0.1 K/uL (0-0.5) 01/07/22 05:44 Sodium 136 mmol/L (136-145) 01/07/22 05:44 Potassium 4.8 mmol/L (3.5-5.1) 01/07/22 05:44 Chloride 103 mmol/L (98-107) 01/07/22 05:44 Carbon Dioxide 30 mmol/L (21-32) 01/07/22 05:44 Anion Gap 7.8 mEq/L (5.0-15.0) 01/07/22 05:44 BUN 22 mg/dL (7-18) H 01/07/22 05:44 Creatinine 1.58 mg/dL (0.55-1.3) H 01/07/22 05:44 Estimated GFR 66 mL/min (=/>90) L 12/24/21 04:18 Est GFR (CKD-EPI) 45 ml/min (=/>90) L 01/07/22 05:44 Glucose 90 mg/dL (74-106) 01/07/22 05:44 POC Glucose 147 mg/dL (65-120) H 12/26/21 12:25 Calcium 9.2 mg/dL (8.5-10.1) 01/07/22 05:44 Magnesium 2.2 mg/dL (1.8-2.4) D 01/07/22 05:44 Albumin 2.9 g/dL (3.4-5.0) L 01/07/22 05:44 Prealbumin 14.1 mg/dL (20-40) L 01/07/22 05:44 Urine Color Yellow (Yellow) 12/21/21 21:42 Urine Appearance Clear (Clear) 12/21/21 21:42 Urine pH 5.5 (5.0-7.0) 12/21/21 21:42 Ur Specific [place] 1.020 (1.005-1.030) 12/21/21 21:42 Glucose (UA)(Auto) Negative (Negative) 12/21/21 21:42 Urine Ketones Negative (Negative) 12/21/21 21:42 Urine Blood Trace-lysed (Negative) H 12/21/21 21:42 Urine Nitrite Negative (Negative) 12/21/21 21:42 Urine Bilirubin Negative (Negative) 12/21/21 21:42 Urine Urobilinogen 1.0 mg/dL (0.2-1.0) 12/21/21 21:42 Ur Leukocyte Esterase Negative (Negative) 12/21/21 21:42 Urine RBC 5-10 /HPF (NONE SEEN) H 12/21/21 21:42 Urine WBC 5-10 /HPF (<5) H 12/21/21 21:42 Ur Squamous Epith Cells <5 /HPF (NONE SEEN) 12/21/21 21:42 Ur Urothelial Cells Cancelled 12/21/21 21:26 Calcium Oxalate Crystal Cancelled 12/21/21 21:26 Uric Acid Crystals Cancelled 12/21/21 21:26 Triple Phos Crystals Cancelled 12/21/21 21:26 Other Crystals Cancelled 12/21/21 21:26 Amorphous Sediment Cancelled 12/21/21 21:26 Glitter Cells Cancelled 12/21/21 21:26 Urine Bacteria <20 /HPF (NONE SEEN) 12/21/21 21:42 Hyaline Casts Cancelled 12/21/21 21:26 Fine Granular Casts Cancelled 12/21/21 21:26 Coarse Granular Casts Cancelled 12/21/21 21:26 Waxy Casts Cancelled 12/21/21 21:26 RBC Casts Cancelled 12/21/21 21:26 WBC Casts Cancelled 12/21/21 21:26 Urine Mucus Cancelled 12/21/21 21:26 Urine Other Cancelled 12/21/21 21:26 Urine Trichomonas Cancelled 12/21/21 21:26 Urine Yeast Cancelled 12/21/21 21:26 Ur Yeast w Hyphae Cancelled 12/21/21 21:26 Urine Yeast (Budding) Cancelled 12/21/21 21:26 Urine Sperm Cancelled 12/21/21 21:26 Ur Microscopic Review Cancelled 12/21/21 21:42 Urine Culture Reflexed Not needed 12/21/21 21:42 Urine Total Volume Cancelled 12/21/21 21:26 Urine Total Protein Negative (Negative) 12/21/21 21:42 SARS-CoV-2 Rap RNA(RT-PCR) Negative (NEGATIVE) 01/03/22 04:25 Weight: 139 lb Wound Present: No Closed Surgical Incision Present: No Negative Pressure Wound Therapy Present: No Physician Update: Min assistance with bed mobility, transfers, 180' with platform waker, wheelchair 250'. Min assistance with bathing. Mod assistance for upper body dressng max assitance for lower body dressing. Functional Improvement: Patient is currently Mod A/Min A for transfers, however has met goals for gait tx., and WC mobility. Patient continues to progress toward goals, and demonstrates good work ethic w/ therapy. Summary: Patient's care plan and longterm goals have been reviewed and revised as necessary. Please see the Rehabilitation Signature page for all necessary signatures.
[2022-01-07] MEDS: ACETAMINOPHEN 500 MG TAB PO PRN (10:20)
[2022-01-07] MEDS: DIVALPROEX ER 250 MG TAB PO SCH ×2 (12:09→19:54)
[2022-01-07] MEDS: GABAPENTIN 300 MG CAP PO SCH (19:53)
[2022-01-07] MEDS: DOCUSATE NA/SENNA CONC 1 TAB PO SCH (19:53)
[2022-01-07] MEDS: ATORVASTATIN 40 MG TAB PO SCH (19:54)
[2022-01-08 07:26] VITALS: BP 120/57; TEMP 96.8
[2022-01-08] MEDS: APIXABAN 5 MG TABLET PO SCH (07:31)
[2022-01-08] MEDS: ASPIRIN EC 81 MG TAB PO SCH (07:31)
[2022-01-08] MEDS: GABAPENTIN 300 MG CAP PO SCH (07:31)
[2022-01-08] MEDS: MAGNESIUM OXIDE 400 MG TAB PO SCH (07:31)
[2022-01-08] MEDS: DULOXETINE 20 MG CAP PO SCH (07:31)
[2022-01-08] MEDS: DIVALPROEX ER 250 MG TAB PO SCH (07:31)
[2022-01-08] MEDS: ENSURE ENLIVE 237 ML CAN PO SCH (07:32)
[2022-01-08] MEDS: ACETAMINOPHEN 500 MG TAB PO PRN (10:13)
[2022-01-08] MEDS: LIDOCAINE 4% PATCH TOP SCH (11:48)
[2022-01-08] MEDS: NICOTINE 21 MG/PAT TD SCH (11:48)
--- NOTE | 2022-01-08 16:27 | R.PN ---
PROGRESS NOTES ENCOUNTER DATE AND TIME: 01/08/2022 16:22 (CDT) NAME ANURADHA MELENDEZ DATE OF : 1945 DATE OF ADMISSION: 12/21/2021 12:20 (CDT) ISCHEMIC CVACHIEF COMPLAINT: Left temporoparietal stroke, right sided weakness and aphasia SUBJECTIVE: Pt denied any depression. Pt denied any Shortness of Breath. Glucose 147. CBC with differential is unremarkable except WBC 11.2, Plt 426. Prealbumin 14.1, Creati nine 1.58. Urine culture is negative. Ambulated 310' with minimum assistance using a rolling walker. Propelled wheelchair 250' with contact guard assistance. Expression and comprehension done with 91% accuracy. Repeat KUB 01/02/22 shows nonobstructive bowel gas pattern. Reglan PRN. Simethicone 80 mg x one . VITAL SIGNS Temperature: 97.5 F SBP/DBP: 120/57 Pulse: 73 Resp: 16 MEDICATION ALLERGIES: No Known Drug Allergies (NKDA) ENVIRONMENTAL ALLERGIES: - Substance Allergies None Known - Other Allergies None Known NURSING: - Shower allowing shower - Bladder care per protocol - Skin care per protocol PRECAUTIONS: - Weight Bearing Precaution WBAT right LE ACTIVITIES OOB only with supervision THERAPIES: - Dietary and Nutrition Adequate Nutrition. Nutritional Education. Nutritional Supplements. Evaluate and Treat. - Occupational Therapy Cognitive Retraining. Patient needs Occupational Therapy for a daily minimum of 1.5 hours at least 5 out of 7 days, to improve Activities of Daily Living, including: Eating, Grooming, Bathing, Dressing, Toileting, Toilet Transfers, Community Reintegration, Higher functional activities, Adaptive Equipme nt, Splinting, Household Tasks, and Other activities as determined. Visual Perceptual Training. ADL T raining. Patient/Family Education. Safety Awareness. Evaluate and Treat. Household Tasks. - Speech Therapy Cognitive Training. Expressive Language Skills. Memory Strategies. Patient needs Speech Therapy for a daily minimum of 1.5 hours at least 5 out of 7 days, to improve: Swallowing, Cognition, Language Ski lls, and Compensatory Strategies. Receptive Language Skills. Speech Intelligibility Training. Evaluat e and Treat. - Physical Therapy Patient needs Physical Therapy for a daily minimum of 1.5 hours at least 5 out of 7 days, to improve: Mobility, Strengthening, Transfers, Stretching, ROM, Endurance, Ability to manage stairs, Gait, and Balance. Balance Training. Evaluate and Treat. Gait Training. Patient/Family Education. Safety Awaren ess. Transfer Training. LE Strengthening. PHYSICAL EXAM - Gen Alert and awake Lying in bed No apparent distress Oriented to: person, time, and place - Skin No skin breakdown. No abnormalities - Eyes No abnormalities - ENMT No abnormalities - Neck No abnormalities - CVS RRR - Chest mild decrease in breath sounds - Resp Course lungs bilaterally - Abd Soft - GI + bowel sounds Deferred - No abnormalities - Ext No significant edema - MSK 4+/5 weakness in right upper and lower extremities - Neuro 4+/5 weakness in right upper and lower extremities and right sided numbness. - Psych No abnormalities ASSESSMENT: Pt. is a 76 yo Right-handed male.On 12/17/2021 Pt. presented to [facility] with sudden o nset of right-side weakness.On 12/17/2021 he was admitted to [facility] with diagnosis I SCHEMIC CVA.His impairment category is Stroke 01 - Right Body (Left Brain) (01.2).Pre-morbidly, Pt. was independent/mod-I in Locomotion, Safety Awareness, Social Cognition, Balance, and Transfers Contr ol; and he had good Sphincter Control, Self-Care, Communication, and Endurance.Currently, he has defi cits of Locomotion, Social Cognition, Safety Awareness, Balance, Transfers Control, Sphincter Control , Self-Care, Endurance, and Communication.Pt. is now referred to [facility] fo r acute in-patient rehabilitation in order to maximize patient's functional independence in activitie s of daily living, strength, ROM, and mobility.- Rehab Goal Patient has realistic goal of being discharged at assistance level 7-Ind to reside at Home with Pt s elf. MDM/PLAN: - Physical Therapy Gait dysfunction - to improve, our physical therapists will perform initial evaluation of pt's statu s upon admission and devise an individualized program for Gait Training, and Wheel Chair mobility Inability to transfer - to improve, our physical therapists will perform initial evaluation of pt's status upon admission and devise an individualized program for Bed mobility Need for home safety evaluation - to improve, our physical therapists will perform initial evaluatio n of pt's status upon admission and devise an individualized program for Home Evaluation Need in caregiver upon discharge - to improve, our physical therapists will perform initial evaluati on of pt's status upon admission and devise an individualized program for Caregiver Training New precaution - to improve, our physical therapists will perform initial evaluation of pt's status upon admission and devise an individualized program for Patient precaution education Edema - to improve, our physical therapists will perform initial evaluation of pt's status upon admi ssion and devise an individualized program for Elevation Training, and Lymphedema Therapy Poor balance - to improve, our physical therapists will perform initial evaluation of pt's status up on admission and devise an individualized program for Balance Training Poor endurance - to improve, our physical therapists will perform initial evaluation of pt's status upon admission and devise an individualized program for Endurance Training Weakness - to improve, our physical therapists will perform initial evaluation of pt's status upon a dmission and devise an individualized program for Aquatic Therapy, Neuromuscular Reeducation, and Str engthening Achieving independence - to improve, our physical therapists will perform initial evaluation of pt's status upon admission and devise an individualized program for Community Reintegration Activities - Occupational Therapy ADL deficits - to improve, our occupation therapists will perform initial evaluation of pt's status upon admission and devise an individualized program for Bathing, Bed mobility, Community Reintegratio n, Cooking, Dressing, Eating, Fine Motor Skills, Grooming, Homemaking, Kitchen Mobility, Laundry, Pat ient Education, Safety Awareness, Splinting - Positioning, Transfers(Toilet, Tub, Shower), and Wheel Chair Management Cognitive deficits - to improve, our occupation therapists will perform initial evaluation of pt's s tatus upon admission and devise an individualized program for Cognition - orientation Need for lawn care specialist - to improve, our occupation therapists will perform initial evaluation of pt's status upon admission and devise an individualized program for Caregiver Training Weakness - to improve, our occupation therapists will perform initial evaluation of pt's status upon admission and devise an individualized program for Aquatic Therapy, Balance, Endurance, UE ROM, and UE strengthening - Other See attached MAR (Medication Administration Record) - Diet Type Continue Regular - Diet - Liquid Texture Continue Regular - Tube Feed Continue N/A - Bladder care per protocol - Weight Bearing Precaution WBAT right LE - Skin care per protocol - Diet - Solid Texture Continue Regular - Shower allowing shower for Dementia, TBI, Stroke, or others FUNCTIONAL STATUS: UPDATED AT WEEKLY TEAM CONFERENCE - Bladder Same accident frequency: 7-Ind - No accidents in the past 7 days - Bowel Same accident frequency: 7-Ind - No accidents in the past 7 days - Walking Same score based on distance walked: 0(N/A) Same score based on distance walked: 1(<=50ft) - Wheelchair Same score based on distance traveled: 0(N/A) FUNCTIONAL STATUS: - Self-Care A. Eating sup B. Grooming [place] C. Bathing maxA D. Dressing - Upper [place] E. Dressing - Lower maxA F. Toileting modA - Sphincter Control G. Bladder control Regina H. Bowel control [place] - Transfers Control I. Bed/Chair/Wheelchair modA J. Toilet modA K. Tub/Shower modA - Locomotion L. Walk/Wheelchair (B) maxA M. Stairs ADNO - Communication N. Comprehension (B) modA O. Expression (B) maxA - Social Cognition P. Social Interaction modA Q. Problem Solving maxA R. Memory modA - Endurance Poor - Balance Poor - Safety Awareness Poor QI SCORES: - Self-Care A. Eating 03-Partial/moderate assistance B. Oral hygiene 02-Substantial/maximal assistance C. Toileting hygiene 02-Substantial/maximal assistance E. Shower/bathe self 02-Substantial/maximal assistance F. Upper body dressing 03-Partial/moderate assistance G. Lower body dressing 02-Substantial/maximal assistance H. Putting on/taking off footwear 88-Not attempted due to medical condition or safety concerns - Mobility A. Roll left and right 03-Partial/moderate assistance B. Sit to lying 03-Partial/moderate assistance C. Lying to sitting on side of bed 03-Partial/moderate assistance D. Sit to stand 03-Partial/moderate assistance E. Chair/[id number] transfer 03-Partial/moderate assistance F. Toilet transfer 02-Substantial/maximal assistance G. Car transfer 88-Not attempted due to medical condition or safety concerns I. Walk 10 feet 88-Not attempted due to medical condition or safety concerns J. Walk 50 feet with two turns 88-Not attempted due to medical condition or safety concerns K. Walk 150 feet 88-Not attempted due to medical condition or safety concerns L. Walking 10 feet on uneven surfaces 88-Not attempted due to medical condition or safety concerns M. 1 step (curb) 88-Not attempted due to medical condition or safety concerns N. 4 steps 88-Not attempted due to medical condition or safety concerns O. 12 steps 88-Not attempted due to medical condition or safety concerns P. Picking up object 88-Not attempted due to medical condition or safety concerns R. Wheel 50 feet with two turns 88-Not attempted due to medical condition or safety concerns S. Wheel 150 feet 88-Not attempted due to medical condition or safety concerns - Bladder and Bowel Bladder continence Bowel continence - Endurance Fair - Balance Fair - Safety Awareness Fair CURRENT [facility]. DEFICITS: Self-Care, Mobility, Endurance, Balance, and Safety Awareness SIGNATURE PANEL: (CDT)
== END 2022-01-08 18:05 | disposition home health service (06) | DRG 57 ==
LOC: 5TH 12-21 12:58
PROVIDERS: ADMIT Psychiatry & Neurology Neurology with Special Qualifications in Child Neurology; ATTEND Psychiatry & Neurology Neurology with Special Qualifications in Child Neurology
DX: I69.351 Hemiplegia and hemiparesis following cerebral infarction affecting right dominant side (principal); I69.320 Aphasia following cerebral infarction; I48.91 Unspecified atrial fibrillation; I10 Essential (primary) hypertension; E78.5 Hyperlipidemia, unspecified; Z95.5 Presence of coronary angioplasty implant and graft; F17.210 Nicotine dependence, cigarettes, uncomplicated; Z20.822 Contact with and (suspected) exposure to COVID-19
CPT/HCPCS: 36415; 71045; 74018; 80048; 81001; 82040; 82947; 83735; 84134; 85025; 87086; 87088; 92507; 92523; 93005; 97110; 97116; 97129; 97130; 97161; 97530; 97542; J2001; U0003